=== PATIENT | female | born 1965 | race Caucasian/White ===

== ENCOUNTER 2020-03-21 12:13 | Outpatient (REF) | payer MEDICARE, MEDICAID, SELFPAY ==
--- NOTE | 2020-03-21 12:17 | XR_ITS ---
EXAMINATION: XR KNEE, BILATERAL XR KNEE, LEFT CLINICAL INFORMATION: Left knee pain COMPARISON: 01/12/2020 TECHNIQUE: AP standing view of both knees. Lateral view of the left knee. FINDINGS: Left knee: No fracture or subluxation. Compartmental joint spaces are maintained. No joint effusion. The soft tissues are unremarkable. Right knee: Single frontal view shows no acute abnormality. Small marginal osteophytes at the lateral compartment. IMPRESSION: Unremarkable appearance of the left knee. Small lateral compartment marginal osteophytes of the right knee.
== END 2020-03-21 12:14 | disposition home or self-care (01) ==
LOC: HO.XRAY 12:13
PROVIDERS: PCP Internal Medicine; Referring Provider Internal Medicine; Visit Provider Orthopaedic Surgery
DX: M25.562 Pain in left knee (principal)
CPT/HCPCS: 20610; 73560; 73565; 99204; J1100

== ENCOUNTER 2020-03-29 14:17 | Outpatient (REF) | payer MEDICARE, MEDICAID, SELFPAY ==
[2020-03-29 15:29] LABS: Leukocytes Stool Qualitative NEGATIVE (NEGATIVE)
[2020-04-04 20:56] LABS: Calprotectin, Fecal 281 mcg/g
== END 2020-03-29 14:18 | disposition home or self-care (01) ==
LOC: HO.LNP 14:17
PROVIDERS: Visit Provider Internal Medicine Gastroenterology
DX: R19.7 Diarrhea, unspecified (principal)
CPT/HCPCS: 83993; 87045; 87046; 87077; 87177; 87209; 89055

== ENCOUNTER 2020-04-10 14:29 | Outpatient (REF) | payer MEDICARE, MEDICAID, SELFPAY ==
--- NOTE | 2020-04-10 | US_ITS ---
EXAMINATION: US RETROPERITONEAL LIMITED (RENAL ONLY) CLINICAL INFORMATION: Renal stone. COMPARISON: Renal ultrasound dated 11/09/2019. TECHNIQUE: Real-time imaging of the kidneys. FINDINGS: RIGHT KIDNEY: 12.7 x 6.6 x 5.1 cm (SAG x AP x TRV). The kidney is normal in size, contour, and echogenicity. Renal cortical thickness is normal. No calculi or focal parenchymal lesions. No hydronephrosis. LEFT KIDNEY: 10.3 x 5.2 x 4.4 cm (SAG x AP x TRV). The kidney is normal in size, contour, and echogenicity. Renal cortical thickness is normal. No calculi or focal parenchymal lesions. No hydronephrosis. Left kidney is mildly atrophic. US/US renal BI IMPRESSION: Mildly atrophic left kidney. Right kidney is unremarkable. Previously seen echogenic nonobstructive stone lower pole left kidney is not visualized at this time..
== END 2020-04-10 14:30 | disposition home or self-care (01) ==
LOC: HO.HMGCX 14:29
PROVIDERS: Visit Provider Urology
DX: N20.0 Calculus of kidney (principal)
CPT/HCPCS: 76775

== ENCOUNTER 2020-04-24 10:37 | Outpatient (REF) | payer MEDICARE, MEDICAID, SELFPAY | END 2020-04-24 10:38 | disposition home or self-care (01) | LOC: HO.HMGCLDS 10:37 | PROVIDERS: PCP Internal Medicine; Visit Provider Internal Medicine | DX: Z20.828 Contact with and (suspected) exposure to other viral communicable diseases (principal) | CPT/HCPCS: C9803; U0003 ==

== ENCOUNTER 2020-04-30 09:15 | Day surgery (SDC) | payer MEDICARE, MEDICAID, SELFPAY ==
[2020-04-24 12:52] VITALS: BMI 40.7
--- NOTE | 2020-04-29 10:45 | P.CONAN_ITS ---
Documented by User: Toshia Samaniego 04/29/20 10:46 HPI - Anesthesia Eval Consult details Narrative: 55yo F for Colonoscopy PMFSH Past Medical History Medical History Anxiety Benign essential hypertension Cervical cancer Chronic back pain DDD (degenerative disc disease), lumbosacral Degenerative joint disease of left knee Depression Diabetes mellitus Fatty liver GERD (gastroesophageal reflux disease) High blood pressure History of renal stone Hx of concussion Left knee pain Lumbar degenerative disc disease Morbid obesity with BMI of 40.0-44.9, adult Pure hypercholesterolemia Smoker Tibia fracture Family History Family History Father Alzheimer disease Mouth cancer Mother Cancer Medical history unknown Surgical History Surgical History History of carpal tunnel release History of lumbar surgery History of surgery (~1999) Hx of colonoscopy Hx of lithotripsy Previous back surgery Social History Social History Alcohol intake: never Smoking Status: Current every day smoker Tobacco Type: Cigarette Packs Per Day: 0.25 Cigarettes Per Day: 5.0 Years Smoked: 20 Smoked in Last 30 Days: Yes Patient Interested in Nicotine Replacement: No Patient Given Instructions on How to Stop Smoking: Yes Date Education Initiated: 04/24/20 Use of substances other than those prescribed or required for medical reasons: No Advance Directives: No Advance Directives Information Provided: No Advance Directives on File: No 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al status: unemployed and disabled 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 Allergies Allergy/AdvReac Type Severity Reaction Status Date / Time doxycycline [DOXYCYCLINE] Allergy Severe PALPITATIONS, Verified 04/24/20 12:43 anaphylaxis ibuprofen [IBUPROFEN] Allergy Severe HIVES Verified 04/24/20 12:43 NSAIDS (Non-Steroidal Allergy Severe HIVES Verified 04/24/20 12:43 Anti-Inflamma [NSAIDS (NON-STEROIDAL ANTI-INFLAMMA] cefaclor [From CECLOR] Allergy Intermediate RASH Verified 04/24/20 12:43 acetaminophen [Tylenol] AdvReac Intermediate n/v Verified 04/24/20 12:43 cephalexin [From KEFLEX] AdvReac Intermediate GI UPSET Verified 04/24/20 12:43 codeine [CODEINE] AdvReac Intermediate N/V Verified 04/24/20 12:43 gabapentin [GABAPENTIN] AdvReac Intermediate NAUSEA/VOMI Verified 04/24/20 12:43 TING tolterodine [From DETROL] AdvReac Intermediate PALPITATION Verified 04/24/20 12:43 S Home Medications Medication Instructions Recorded Confirmed Type amlodipine 5 mg tablet 5 mg PO DAILY 03/21/20 04/24/20 History atorvastatin 10 mg tablet 10 mg PO DAILY 03/21/20 04/24/20 History pantoprazole 40 mg tablet,delayed 40 mg PO DAILY 03/21/20 04/24/20 History release meloxicam 15 mg tablet 15 mg PO DAILY 03/27/20 04/24/20 History metformin 500 mg tablet,extended 1,000 mg PO BID tab 03/31/20 04/24/20 History release 24 hr oxycodone-acetaminophen [Percocet] PO Q4-6H PRN 04/30/20 History pregabalin PO BID 04/30/20 History Exam Exam Date and Time: April 29, 2020 1045 Height,Weight and Vital Signs: Height 5 ft 5 in Weight 111.13 kg Assessment and Plan Assessment Anesthesia Assessment: Chart Reviewed Documented by User: Robin Ricks MD 04/30/20 10:58 [facility] Past Medical History Medical History Anxiety Benign essential hypertension Cervical cancer Chronic back pain DDD (degenerative disc disease), lumbosacral Degenerative joint disease of left knee Depression Diabetes mellitus Fatty liver GERD (gastroesophageal reflux disease) High blood pressure History of renal stone Hx of concussion Left knee pain Lumbar degenerative disc disease Morbid obesity with BMI of 40.0-44.9, adult Pure hypercholesterolemia Smoker Tibia fracture Family History Family History Father Alzheimer disease Mouth cancer Mother Cancer Medical history unknown Surgical History Surgical History History of carpal tunnel release History of lumbar surgery History of surgery (~1999) Hx of colonoscopy Hx of lithotripsy Previous back surgery Social History Social History Alcohol intake: never Smoking Status: Current every day smoker Tobacco Type: Cigarette Packs Per Day: 0.25 Cigarettes Per Day: 5.0 Years Smoked: 20 Smoked in Last 30 Days: Yes Patient Interested in Nicotine Replacement: No Patient Given Instructions on How to Stop Smoking: Yes Date Education Initiated: 04/24/20 Use of substances other than those prescribed or required for medical reasons: No Advance Directives: No Advance Directives Information Provided: No Advance Directives on File: No 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al status: unemployed and disabled 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 Allergies Allergy/AdvReac Type Severity Reaction Status Date / Time doxycycline [DOXYCYCLINE] Allergy Severe PALPITATIONS, Verified 04/24/20 12:43 anaphylaxis ibuprofen [IBUPROFEN] Allergy Severe HIVES Verified 04/24/20 12:43 NSAIDS (Non-Steroidal Allergy Severe HIVES Verified 04/24/20 12:43 Anti-Inflamma [NSAIDS (NON-STEROIDAL ANTI-INFLAMMA] cefaclor [From CECLOR] Allergy Intermediate RASH Verified 04/24/20 12:43 acetaminophen [Tylenol] AdvReac Intermediate n/v Verified 04/24/20 12:43 cephalexin [From KEFLEX] AdvReac Intermediate GI UPSET Verified 04/24/20 12:43 codeine [CODEINE] AdvReac Intermediate N/V Verified 04/24/20 12:43 gabapentin [GABAPENTIN] AdvReac Intermediate NAUSEA/VOMI Verified 04/24/20 12:43 TING tolterodine [From DETROL] AdvReac Intermediate PALPITATION Verified 04/24/20 12:43 S Home Medications Medication Instructions Recorded Confirmed Type amlodipine 5 mg tablet 5 mg PO DAILY 03/21/20 04/24/20 History atorvastatin 10 mg tablet 10 mg PO DAILY 03/21/20 04/24/20 History pantoprazole 40 mg tablet,delayed 40 mg PO DAILY 03/21/20 04/24/20 History release meloxicam 15 mg tablet 15 mg PO DAILY 03/27/20 04/24/20 History metformin 500 mg tablet,extended 1,000 mg PO BID tab 03/31/20 04/24/20 History release 24 hr oxycodone-acetaminophen [Percocet] PO Q4-6H PRN 04/30/20 History pregabalin PO BID 04/30/20 History Exam Airway Mallampati Class: II TM Dist: >3cm Neck ROM: Full Partial: Upper Loose/Missing/Broken Teeth: Yes Heart: rrr Lungs: nl Other: ao Assessment and Plan Assessment Anesthesia Assessment: Anesthesia Plan Discussed and Chart Reviewed Final Anesthetic Review NPO: Yes ASA Class: III Final Preanesthetic Review: No Changes in Pt Med Stat, Meds/Allgs Chart Reviewed, Consent Obtained/Reviewed and Anes Risks/Benef Reviewed Patient Risk: High Procedure Risk: Low Anesthetic Plan Anesthetic Plan: MAC: Disposition: Standard PACU
[2020-04-30 09:50] VITALS: BP 113/79; PULSE 97; RESP 16; TEMP 36.5; O2SAT 96
[2020-04-30 09:50] LABS: Glucose, Whole Blood 147 mg/dL (60-115)
[2020-04-30] MEDS: Lactated Ringers 1,000 ML 100 ML IVCONT (09:57)
--- NOTE | 2020-04-30 10:50 | MHC.SHP ---
Pre-Procedural Eval Section A The patient is an INPATIENT: No Changes since office visit: No Cold of Flu in the past 2 weeks, No New Medical Problems, No Changes in Medication and No Patient answered all questions The History & Physical has been completed within 30 days and I have reviewed it.: Yes Section B Chief Complaint: Diarrhea Allergies: Allergies Allergy/AdvReac Type Severity Reaction Status Date / Time doxycycline [DOXYCYCLINE] Allergy Severe PALPITATIONS, Verified 04/24/20 12:43 anaphylaxis ibuprofen [IBUPROFEN] Allergy Severe HIVES Verified 04/24/20 12:43 NSAIDS (Non-Steroidal Allergy Severe HIVES Verified 04/24/20 12:43 Anti-Inflamma [NSAIDS (NON-STEROIDAL ANTI-INFLAMMA] cefaclor [From CECLOR] Allergy Intermediate RASH Verified 04/24/20 12:43 acetaminophen [Tylenol] AdvReac Intermediate n/v Verified 04/24/20 12:43 cephalexin [From KEFLEX] AdvReac Intermediate GI UPSET Verified 04/24/20 12:43 codeine [CODEINE] AdvReac Intermediate N/V Verified 04/24/20 12:43 gabapentin [GABAPENTIN] AdvReac Intermediate NAUSEA/VOMI Verified 04/24/20 12:43 TING tolterodine [From DETROL] AdvReac Intermediate PALPITATION Verified 04/24/20 12:43 S Plan Patient has been examined and remains a candidate for the planned procedure
[2020-04-30 12:06] VITALS: BP 109/78; PULSE 76; RESP 16; TEMP 36.4; O2SAT 94
--- NOTE | 2020-04-30 12:07 | PM.OP ---
Brief Operative Note Date of Service: 04/30/20 Pre-op diagnosis: diarrhea Post-op diagnosis: other Procedure: colon stricture, r/o IBD Surgeon: Christopher Quiroz Anesthesia: MAC Estimated blood loss (mL): 10 Pathology: other (biopsies ti, throughout colon and stricture) Condition: stable Disposition: PACU
[2020-04-30 12:21] VITALS: BP 113/83; PULSE 75; RESP 14; TEMP 36.4; O2SAT 96
--- NOTE | 2020-04-30 12:42 | OP_ITS ---
SURGEON: Christopher Quiroz MD INDICATIONS: Diarrhea and question of underlying inflammatory bowel disease. PREOPERATIVE DIAGNOSIS: POSTOPERATIVE DIAGNOSIS: PROCEDURE PERFORMED: Colonoscopy to the terminal ileum with balloon dilation of stricture and biopsy. ESTIMATED BLOOD LOSS: COMPLICATIONS: ANESTHESIA: ASSISTANTS: SPECIMENS: MEDICATIONS: Monitored anesthesia care. DESCRIPTION OF PROCEDURE: History and physical performed. The risks and benefits of the procedure were explained to the patient. Informed consent was obtained. The patient was placed in the left lateral decubitus position. A digital rectal exam was performed and was found to be normal. The Olympus pediatric video colonoscope was introduced into the rectum and advanced to the cecum. The cecum was identified by transillumination, palpation, and identification of ileocecal valve. Examination was performed and the scope was removed. She tolerated the procedure well and was taken to recovery area in stable condition. FINDINGS: There was a stricture at about 20 cm, which did not permit passage of the colonoscope. The stricture was sequentially dilated with 8 to 12 mm balloon was passed through the scope and inflated for 60 seconds at the recommended pressure sequentially, and the scope was able to be passed. The terminal ileum was evaluated and appeared normal. This was biopsied. The visualized colonic mucosa in the right colon, transverse colon, and descending colon appeared normal. Biopsies were obtained from the mucosa. There was a large amount of liquid stool, which was suctioned. In the sigmoid, there were patchy areas of featureless mucosa without ulceration or erythema. At about 20 cm, the stricture was again inspected. The mucosa appeared normal without signs of malignancy except for the lack of normal vascularity suggestive of possible underlying inflammatory bowel disease. There was edema and erythema around the stricture without ulceration. Biopsies were obtained from the stricture. There was some oozing at the site of the balloon dilation, which was stable at the termination of the procedure. From 0 to 28 cm, the rectum appeared featureless with edema, but without significant erythema. Biopsies were obtained from the rectum. Retroflexed examination was not possible. Hemorrhoids were noted on withdrawal of the colonoscope. IMPRESSION: 1. Colonic stricture. 2. Rule out inflammatory bowel disease. RECOMMENDATIONS: 1. Follow up the biopsy results. 2. Continue balsalazide. MD BARBAAR Chin/BERNARDO / [id number]
--- NOTE | 2020-04-30 13:02 | HO.POSTANES ---
Post Anesthesia Evaluation Post Anesthesia Evaluation Vital Signs: Vital Signs Temp Pulse Resp BP Pulse Ox 04/30/20 12:21 97.6 F 75 14 113/83 96 04/30/20 12:06 97.6 F 76 16 109/78 94 04/30/20 09:50 97.7 F 97 16 113/79 96 Anesthesia: Monitored Mental Status: Awake Pain Control: Satisfactory Nausea/Vomiting: None Hydration: Adequate Anesthesia-Related Issues: No Anes. Related Issues
== END 2020-04-30 13:10 | disposition home or self-care (01) ==
PROVIDERS: PCP Internal Medicine; Visit Provider Internal Medicine Gastroenterology
PROC: 0D7E8ZZ Dilation of Large Intestine, Via Natural or Artificial Opening Endoscopic (ICD-10-PCS; CPT 45380; principal; 2020-04-30 11:00)
DX: R19.7 Diarrhea, unspecified (principal); K56.699 Other intestinal obstruction unspecified as to partial versus complete obstruction; E11.9 Type 2 diabetes mellitus without complications; I10 Essential (primary) hypertension; Z79.84 Long term (current) use of oral hypoglycemic drugs; Z79.899 Other long term (current) drug therapy; F17.210 Nicotine dependence, cigarettes, uncomplicated; Z88.6 Allergy status to analgesic agent; Z88.8 Allergy status to other drugs, medicaments and biological substances; Z88.3 Allergy status to other anti-infective agents
CPT/HCPCS: 45380; 45386; 82947; 88305; C1726

== ENCOUNTER → 2020-05-23 10:07 | Outpatient (BNVA) | payer MEDICARE, MEDICAID, SELFPAY | PROVIDERS: Visit Provider Orthopaedic Surgery | DX: M17.12 Unilateral primary osteoarthritis, left knee (principal) | CPT/HCPCS: Q3014 ==

== ENCOUNTER → 2020-09-05 10:56 | Outpatient (BNVA) | payer MEDICARE, MEDICAID, SELFPAY | PROVIDERS: PCP Internal Medicine; Visit Provider Family Medicine Adult Medicine | DX: Z13.89 Encounter for screening for other disorder (principal) | CPT/HCPCS: 99202 ==

== ENCOUNTER → 2020-09-17 08:56 | Outpatient (BNVA) | payer MEDICARE, MEDICAID, SELFPAY | PROVIDERS: PCP Internal Medicine; Visit Provider Family Medicine Adult Medicine | DX: Z13.89 Encounter for screening for other disorder (principal) | CPT/HCPCS: 99212 ==

== ENCOUNTER 2020-09-17 10:19 | Outpatient (REF) | payer MEDICARE, MEDICAID, SELFPAY ==
[2020-09-17 12:17] LABS: MANUAL DIFF FLAG NO
[2020-09-17 12:25] LABS: Basophils Percent Auto 0.5 % (0-2); Eosinophils Absolute Auto 0.1 X10*3/uL (0.0-0.4); Eosinophils Percent Auto 1.3 % (0-4); Hematocrit 41.2 % (37-47); Hemoglobin 13.1 g/dl (12.0-16.0); Imm Gran Abs Auto 0.02 X10*3/uL (0.00-0.03); Imm Gran Pct Auto 0.2 % (0.0-0.4); Lymphocytes Percent Auto 22.5 % (20-40); Mean Corpuscular HGB Conc 31.8 g/dl (31.0-35.0); Mean Corpuscular Hemoglobin 27.3 pg (27.0-33.0); Mean Corpuscular Volume 85.8 fL (80-98); Monocytes Absolute Auto 0.6 X10*3/uL (0.1-1.2); Monocytes Percent Auto 7.3 % (2-11); Neutrophils Percent Auto 68.2 % (45-73); Platelet Count 200 X10*3/uL (160-400); Red Cell Distribution Width 13.3 % (11.0-16.0); White Blood Count 8.7 X10*3/uL (4.8-10.8)
[2020-09-17 12:37] LABS: Alanine Aminotransferase 18 U/L (0-31); Albumin Level 4.1 g/dL (3.5-5.0); Alkaline Phosphatase 117 U/L (39-117); Anion Gap 13 (12-20); Aspartate Amino Transferase 20 U/L (5-31); Bilirubin Total 0.7 mg/dL (0.0-1.0); Blood Urea Nitrogen 18 mg/dL (9-16); Calcium 9.7 mg/dL (8.4-10.2); Carbon Dioxide 26 mmol/L (22-29); Chloride 107 mmol/L (96-108); Cholesterol 149 mg/dL; Estimated Glomerular Filt Rate > 60; Glucose Fasting 83 mg/dL (60-99); HDL Cholesterol 44 mg/dL; LDL Cholesterol Calculated 71 mg/dl; Potassium 4.3 mmol/L (3.3-5.1); Sodium 142 mmol/L (135-145); Total Protein 7.1 g/dL (6.5-8.0); Triglycerides 173 mg/dL
[2020-09-17 12:52] LABS: Estimated Average Glucose 123 mg/dL; Hemoglobin A1c % 5.9 %
[2020-09-17 13:04] LABS: TSH reflex Free T4 1.19 uIU/mL (0.32-4.0)
== END 2020-09-17 10:20 | disposition home or self-care (01) ==
LOC: HO.10HDL 10:19
PROVIDERS: Visit Provider Internal Medicine
DX: I10 Essential (primary) hypertension (principal); K21.9 Gastro-esophageal reflux disease without esophagitis; E66.01 Morbid (severe) obesity due to excess calories; Z68.41 Body mass index [BMI] 40.0-44.9, adult; E78.00 Pure hypercholesterolemia, unspecified; E11.9 Type 2 diabetes mellitus without complications; F17.200 Nicotine dependence, unspecified, uncomplicated
CPT/HCPCS: 36415; 80053; 80061; 83036; 84443; 85025; 99212

== ENCOUNTER 2020-09-18 12:07 | Outpatient (REF) | payer MEDICARE, MEDICAID, SELFPAY ==
[2020-09-18 13:58] LABS: Glucose Urine UA NEG (NEG); Leukocyte Esterase Urine NEG (NEG); Nitrite Urine NEG (NEG); PH 5.5 (5.0-8.0); Specific Gravity - Urine >= 1.030 (1.005-1.025); Urine Blood 1+ (NEG); Urine Ketones NEG (NEG); Urine Protein NEG (NEG-TRACE)
[2020-09-18 13:59] LABS: Appearance Urine HAZY; Color Urine YELLOW
[2020-09-18 14:13] LABS: Amorphous Sediment Urine 2+ /LPF; Squamous Epithelial Cell Urine TRACE /LPF; WBC Urine 0-2 /HPF (0-4)
[2020-09-18 14:59] LABS: Creatinine Urine 200.59 mg/dL; Microalbum/Creatinine Ratio Ur 12.4 ug/mg cr
== END 2020-09-18 12:08 | disposition home or self-care (01) ==
LOC: HO.10HDLNP 12:07
PROVIDERS: Visit Provider Internal Medicine
DX: E11.9 Type 2 diabetes mellitus without complications (principal)
CPT/HCPCS: 81001; 82043

== ENCOUNTER → 2020-09-24 08:29 | Outpatient (BNVA) | payer MEDICARE, MEDICAID, SELFPAY | PROVIDERS: PCP Internal Medicine; Visit Provider Family Medicine Adult Medicine | DX: M96.1 Postlaminectomy syndrome, not elsewhere classified (principal); M25.561 Pain in right knee; M25.562 Pain in left knee | CPT/HCPCS: 99212 ==

== ENCOUNTER → 2020-10-01 09:55 | Outpatient (BNVA) | payer MEDICARE, MEDICAID, SELFPAY | PROVIDERS: PCP Internal Medicine; Visit Provider Family Medicine Adult Medicine | DX: M25.561 Pain in right knee (principal); M25.562 Pain in left knee; M96.1 Postlaminectomy syndrome, not elsewhere classified | CPT/HCPCS: 99212 ==

== ENCOUNTER → 2020-10-22 10:27 | Outpatient (BNVA) | payer MEDICARE, MEDICAID, SELFPAY | PROVIDERS: PCP Internal Medicine; Visit Provider Nurse Practitioner Family | DX: M17.0 Bilateral primary osteoarthritis of knee (principal); M25.561 Pain in right knee; M25.562 Pain in left knee; G89.29 Other chronic pain | CPT/HCPCS: 99212 ==

== ENCOUNTER → 2020-10-29 09:48 | Outpatient (BNVA) | payer MEDICARE, MEDICAID, SELFPAY | PROVIDERS: PCP Internal Medicine; Visit Provider Family Medicine Adult Medicine | DX: M96.1 Postlaminectomy syndrome, not elsewhere classified (principal); M25.561 Pain in right knee; M25.562 Pain in left knee; G89.29 Other chronic pain | CPT/HCPCS: 99212 ==

== ENCOUNTER → 2020-11-28 09:18 | Outpatient (BNVA) | payer MEDICARE, MEDICAID, SELFPAY | PROVIDERS: PCP Internal Medicine; Visit Provider Family Medicine Adult Medicine | DX: M96.1 Postlaminectomy syndrome, not elsewhere classified (principal); M25.561 Pain in right knee; M25.562 Pain in left knee; G89.29 Other chronic pain; G56.02 Carpal tunnel syndrome, left upper limb | CPT/HCPCS: 99212 ==

== ENCOUNTER 2020-12-25 14:11 | Inpatient (IN) | payer MEDICARE, MEDICAID, SELFPAY ==
[2020-12-25] VITALS (9 sets, daily range): BP systolic 71–126; BP diastolic 25–62; PULSE 86–99; RESP 16–27; TEMP 37.9–39.2; O2SAT 91–100; BMI 27.4
--- NOTE | ~2020-12-25 | XR_ITS ---
EXAMINATION: XR CHEST CLINICAL INFORMATION: Shortness of breath COMPARISON: 12/25/2020 TECHNIQUE: Frontal view of the chest was obtained. FINDINGS: Lung volumes are symmetric. No focal consolidation is seen. No evidence of pneumothorax, pleural effusion, or pulmonary edema. The cardiomediastinal contour is unremarkable. No acute osseous findings are seen. XR/XR chest 1V IMPRESSION: No acute cardiopulmonary findings.
--- NOTE | ~2020-12-25 | XR_ITS ---
EXAMINATION: XR CHEST CLINICAL INFORMATION: Fever and hypotension COMPARISON: None TECHNIQUE: Frontal view of the chest was obtained. FINDINGS: No significant abnormality is noted involving the heart, lungs, mediastinum, bony thorax or soft tissues. XR/XR chest 1V IMPRESSION: Unremarkable examination.
--- NOTE | ~2020-12-25 | CT_ITS ---
EXAMINATION: CT abdomen pelvis wo con CLINICAL INFORMATION: Reason for Exam hematuria with right flank pain COMPARISON: Prior CT 2020 TECHNIQUE: Multidetector volumetric imaging was performed from the superior aspect of the liver through the pubic symphysis a noncontrasted study. Sagittal and coronal reformatted images were obtained on the technologist's workstation. This CT examination was performed using dose optimization techniques as appropriate, variously including the following: *Automated exposure control *Adjustment of mA and/or kV according to patient size (this includes techniques or standardized protocols for targeted exams where dose is matched to indication/reason for exam; i.e. extremities or head) *Use of iterative reconstruction technique DLP: 1118 mGy-cm FINDINGS: LOWER THORAX: Included lung bases are clear. HEPATOBILIARY: Evaluation of the liver is limited on this noncontrasted study. GALLBLADDER: Redemonstration of multiple gallstones. SPLEEN: Spleen is enlarged measuring 14.1 x 8.8 cm. PANCREAS: No focal mass or ductal dilatation. STOMACH AND GASTROINTESTINAL TRACT: Stomach is grossly unremarkable. Small bowel is unremarkable. There is diffuse marked thickening of the wall of the colon which involve the left side of the transverse colon and the entire left descending colon, along with mild pericolic fat stranding, nonspecific radiologic finding likely sequela of infection, inflammatory and/or ischemic process versus less commonly neoplastic. There is adjacent small amount of free fluid along the left gutter. There is no CT evidence of pneumatosis. Evaluation is limited on this noncontrasted study. ADRENALS: No adrenal nodules. KIDNEYS/URETERS: There is a 3 mm small nonobstructing stone in the left kidney. Mild fullness of right renal pelvis without marked hydronephrosis. URINARY BLADDER: Partially decompressed. PELVIC VISCERA: There is circumferential wall thickening of the rectum and the rectoanal verge. Could be proctitis. Evaluation is limited due to lack of contrast. Cannot rule out underlying inflammatory, infection or neoplastic process. PERITONEUM: No free air or fluid. LYMPH NODES: No lymphadenopathy. VASCULAR:There is only very mild vascular calcifications. BONES, ABDOMINAL WALL AND SOFT TISSUES: Postsurgical changes posterior fusion of lower lumbar spine. Hardware are in place properly positioned. CT/CT abdomen pelvis wo con IMPRESSION: 1. Quite abnormal exam, there is diffuse marked thickening of the wall of the colon involving the left side of the transverse colon , splenic flecture and the entire descending colon along with mild pericolic fat stranding and fluid along the left gutter, without evidence of significant underlying diverticular disease, differential would include inflammatory, IBD, infection colitis, versus ischemic colitis. Neoplasm felt to be less common. 2. There is also fullness of the distal rectal rectoanal area, cannot rule out underlying process. Clinical correlation and follow-up recommended. 3. Other noncritical findings include postsurgical changes posterior fusion lumbar spine, nonobstructing left kidney stone, splenomegaly. This critical result was discussed with Dr. Irving, osteomyelitis can't rule out with by telephone at 12/25/2020 8:39 PM and it was ascertained that the content and urgency of the report was understood at the time of direct communication.
--- NOTE | 2020-12-25 17:01 | ED_ITS ---
HPI - General Adult General Chief complaint: Back Pain/Injury Stated complaint: back pain, Time Seen by Provider: 12/25/20 17:01 Source: patient Mode of arrival: ambulatory Limitations: no limitations History of Present Illness HPI narrative: patient with chills, n/v/d. patient states she has been having hematuria. Sent in from [facility] for UTI. Onset (ago): day(s) Location: back and abdomen Radiation: non-radiation Severity: moderate Quality: aching Pain Consistency: intermittent Related Data Previous Rx's Medication Instructions Recorded amlodipine 5 mg tablet 5 mg PO DAILY 30 Days #30 tab 06/10/20 metformin 500 mg tablet,extended 1,000 mg PO BID 30 Days #120 tab 06/12/20 release 24 hr pregabalin 300 mg capsule 300 mg PO BID 30 Days #60 cap 06/12/20 nystatin 100,000 unit/gram topical 1 appl TOPICAL TID 10 Days #30 g 07/31/20 powder naloxone 4 mg/actuation nasal spray 4 mg INTRANASAL Q2M PRN 1 Days #2 09/17/20 ea pantoprazole 40 mg tablet,delayed 40 mg PO DAILY #90 cap 09/29/20 release atorvastatin 10 mg tablet 10 mg PO DAILY 90 Days #90 tab 11/28/20 clonazepam 2 mg tablet 2 mg PO TID PRN 30 Days #90 tab 11/28/20 lisinopril 40 mg tablet 40 mg PO DAILY 90 Days #90 tab 11/29/20 meloxicam 15 mg tablet 15 mg PO DAILY PRN 90 Days #90 tab 11/29/20 oxycodone-acetaminophen 5 mg-325 1 tab PO Q8H PRN 30 Days #90 tab 12/25/20 mg tablet Allergies Allergy/AdvReac Type Severity Reaction Status Date / Time doxycycline [DOXYCYCLINE] Allergy Severe PALPITATIONS, Verified 12/25/20 14:56 anaphylaxis ibuprofen [IBUPROFEN] Allergy Severe HIVES Verified 12/25/20 14:56 NSAIDS (Non-Steroidal Allergy Severe HIVES Verified 12/25/20 14:56 Anti-Inflamma [NSAIDS (NON-STEROIDAL ANTI-INFLAMMA] cefaclor [From CECLOR] Allergy Intermediate RASH Verified 12/25/20 14:56 acetaminophen [Tylenol] AdvReac Intermediate n/v Verified 12/25/20 14:56 cephalexin [From KEFLEX] AdvReac Intermediate GI UPSET Verified 12/25/20 14:56 codeine [CODEINE] AdvReac Intermediate N/V Verified 12/25/20 14:56 gabapentin [GABAPENTIN] AdvReac Intermediate NAUSEA/VOMI Verified 12/25/20 14:56 TING tolterodine [From DETROL] AdvReac Intermediate PALPITATION Verified 12/25/20 14:56 S Review of Systems Constitutional: Constitutional: Reports no additional constitutional complaints Eyes: Eyes: Reports no additional eye complaints ENT: Denies dizziness Cardiovascular: Cardiovascular: Reports no additional cardiovascular complaints Respiratory: Respiratory: Reports as per HPI Gastrointestinal: Gastrointestinal: Reports no additional gastrointestinal complaints Genitourinary: Genitourinary: Reports no additional female genitourinary complaints Musculoskeletal: Musculoskeletal: Reports no additional musculoskeletal complaints Integumentary/Breasts: Skin/Breast: Denies rash Neurologic: Reports system reviewed and no additional complaints, except as documented, Denies dizziness and Denies Sensory deficit (Neuro) Psychiatric: Psychiatric: Denies anxiety PMFSH Past Medical History Medical History Anxiety Benign essential hypertension Bilateral knee pain Carpal tunnel syndrome of left wrist Cervical cancer DDD (degenerative disc disease), lumbosacral Degenerative joint disease of left knee Depression Diabetes mellitus Failed back syndrome, lumbar Fatty liver GERD without esophagitis History of renal stone Hx of concussion Knee pain, bilateral Left wrist pain Lumbar degenerative disc disease Morbid obesity with BMI of 40.0-44.9, adult Pure hypercholesterolemia Smoker Tibia fracture Surgical History History of carpal tunnel release History of lumbar surgery History of surgery (~1999) Hx of colonoscopy Hx of lithotripsy Previous back surgery Family History Family History Father Alzheimer disease Mouth cancer Mother Cancer Medical history unknown Social History Social History Household Members Other:: single lives with 2 severely handicapped daughters Alcohol intake: never Patient Tobacco Use Status: Current everyday Tobacco user Cigarettes Per Day: 10 Years Smoked: 20 Advance Directives: No Advance Directives Information Provided: No 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al status: unemployed and disabled 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 Physical Exam Vital Signs: Vital Signs: Last Vital Signs Temp 102.5 F H 12/25/20 20:56 Pulse 94 12/25/20 20:56 Resp 25 H 12/25/20 20:56 BP 108/43 L 12/25/20 20:56 Pulse Ox 91 L 12/25/20 20:56 Body Mass Index 27.4 Const: Other: anxious Nutritional Appearance: obese Orientation/consciousness: oriented to person and patient oriented x3 Limitations: no limitations HENMT: Head: Yes normal to inspection Ears: external ears normal General nose exam: Normal external nose present Mouth: Normal oral and palatal mucosa present and oropharynx normal Throat: Yes posterior oropharynx normal Eyes: General: appearance normal, both eyes and all related structures Neck: Other: supple Neck: Yes normal visual inspection Chest: Chest palpation & inspection: normal inspection of the chest Resp: Auscultation: clear to auscultation bilaterally Cardio: Jugular venous distension: no JVD Rate: regular rate Rhythm: regular rhythm Heart sounds: S1 normal heart sound present and S2 normal heart sound present GI: Inspection: Yes normal to inspection Palpation (GI): Soft to palpation, nontender and No hepatosplenomegaly present Auscultation: normal bowel sounds Back/Spine/Pelvis: Other: Right CVAT Skin: General skin exam: no rashes or lesions noted Neuro: General: oriented to person and patient oriented x3 Cranial nerves: Yes CN's II-XII intact bilaterally Motor exam (neuro): 5/5 motor strength present throughout Sensory Exam: No Sensory deficit (Neuro) Extrem: General: Yes normal to inspection Psych: Appearance: grossly normal Course Reevaluation(s) Reevaluation #1: Called for low blood pressures in the 50's. Patient awake and alert, not tachycardic. Manual BP 92/62. Repeat BP 112/60. Will continue current care at this time Time: 18:13 Reevaluation #2: CT shows significant colitis, patient states yesterday she had diarrhea Time: 20:42 Reevaluation #3: patient with severe infection but not sepsis will admit patient Time: 21:21 Medical Decision Making Lab Data Result diagrams: 12/25/20 20:11 12/25/20 20:11 Labs: Lab Results 12/25/20 12/25/20 12/25/20 Range/Units 19:32 20:10 20:11 WBC 18.4 H (4.8-10.8) X10*3/uL RBC 4.19 L (4.20-5.50) X10*6/uL Hgb 11.6 L (12.0-16.0) g/dl Hct 35.8 L (37-47) % MCV 85.4 (80-98) fL MCH 27.7 (27.0-33.0) pg MCHC 32.4 (31.0-35.0) g/dl RDW 13.6 (11.0-16.0) % Plt Count 175 (160-400) X10*3/uL MPV 10.5 (9.4-12.3) fL Immature Gran % (Auto) 0.4 (0.0-0.4) % Neut % (Auto) 81.0 H (45-73) % Lymph % (Auto) 8.1 L (20-40) % [place] % (Auto) 10.2 (2-11) % Eos % (Auto) 0.1 (0-4) % Baso % (Auto) 0.2 (0-2) % Lymph # (Auto) 1.5 (1.2-4.9) X10*3/uL [place] # (Auto) 1.9 H (0.1-1.2) X10*3/uL Eos # (Auto) 0.0 (0.0-0.4) X10*3/uL Baso # (Auto) 0.0 (0.0-0.2) X10*3/uL Abs Immat Gran (auto) 0.07 H (0.00-0.03) X10*3/uL Absolute Neuts (auto) 14.9 H (2.0-8.3) X10*3/uL Absolute Nucleated RBC 0.000 (0.0-0.012) X10*3/uL Nucleated RBC % (auto) 0.0 (0.0-0.2) /100WBC Smear Tech's Comments VERIFIED PT (9.9-13.0) SEC INR (0.9-1.1) Sodium (135-145) mmol/L Potassium (3.3-5.1) mmol/L Chloride (96-108) mmol/L Carbon Dioxide (22-29) mmol/L Anion Gap (12-20) BUN (9-16) mg/dL Creatinine (0.5-1.4) mg/dL Estim Creat Clear Calc Estimated GFR Random Glucose (60-115) mg/dL Lactic Acid 1.6 (0.5-2.0) mmol/L Calcium (8.4-10.2) mg/dL Total Bilirubin (0.0-1.0) mg/dL Urine Color YELLOW Urine Appearance CLEAR Urine pH 5.5 (5.0-8.0) Ur Specific [place] <= 1.005 (1.005-1.025) Urine Protein NEG (NEG-TRACE) MG/DL Urine Glucose (UA) NEG (NEG) MG/DL Urine Ketones NEG (NEG) MG/DL Urine Blood 1+ H (NEG) Urine Nitrite NEG (NEG) Ur Leukocyte Esterase TRACE H (NEG) Urine RBC 1-4 (0) /HPF Urine WBC 5-9 H (0-4) /HPF Ur Squamous Epith Cells TRACE /LPF Ur Renal Epithelial Cell TRACE /LPF Urine Bacteria TRACE /LPF 12/25/20 12/25/20 12/25/20 Range/Units 20:11 20:11 20:11 WBC (4.8-10.8) X10*3/uL RBC (4.20-5.50) X10*6/uL Hgb (12.0-16.0) g/dl Hct (37-47) % MCV (80-98) fL MCH (27.0-33.0) pg MCHC (31.0-35.0) g/dl RDW (11.0-16.0) % Plt Count (160-400) X10*3/uL MPV (9.4-12.3) fL Immature Gran % (Auto) (0.0-0.4) % Neut % (Auto) (45-73) % Lymph % (Auto) (20-40) % [place] % (Auto) (2-11) % Eos % (Auto) (0-4) % Baso % (Auto) (0-2) % Lymph # (Auto) (1.2-4.9) X10*3/uL [place] # (Auto) (0.1-1.2) X10*3/uL Eos # (Auto) (0.0-0.4) X10*3/uL Baso # (Auto) (0.0-0.2) X10*3/uL Abs Immat Gran (auto) (0.00-0.03) X10*3/uL Absolute Neuts (auto) (2.0-8.3) X10*3/uL Absolute Nucleated RBC (0.0-0.012) X10*3/uL Nucleated RBC % (auto) (0.0-0.2) /100WBC Smear Tech's Comments PT 13.8 H (9.9-13.0) SEC INR 1.2 H (0.9-1.1) Sodium 137 (135-145) mmol/L Potassium 4.0 (3.3-5.1) mmol/L Chloride 103 (96-108) mmol/L Carbon Dioxide 24 (22-29) mmol/L Anion Gap 14 (12-20) BUN 18 H (9-16) mg/dL Creatinine 0.89 (0.5-1.4) mg/dL Estim Creat Clear Calc 75.7 Estimated GFR > 60 Random Glucose 147 H (60-115) mg/dL Lactic Acid (0.5-2.0) mmol/L Calcium 8.8 D (8.4-10.2) mg/dL Total Bilirubin 1.8 H (0.0-1.0) mg/dL Urine Color Urine Appearance Urine pH (5.0-8.0) Ur Specific [place] (1.005-1.025) Urine Protein (NEG-TRACE) MG/DL Urine Glucose (UA) (NEG) MG/DL Urine Ketones (NEG) MG/DL Urine Blood (NEG) Urine Nitrite (NEG) Ur Leukocyte Esterase (NEG) Urine RBC (0) /HPF Urine WBC (0-4) /HPF Ur Squamous Epith Cells /LPF Ur Renal Epithelial Cell /LPF Urine Bacteria /LPF Imaging Data Chest x-ray: Radiologist's impression: IMPRESSION: Unremarkable examination CT scan - abdomen: Radiologist's impression: very ill appearing left colon with inflammation and edema, no abscess no pneumatosis Critical Care Time Critical Care Time Attestation: I spent 40 minutes of critical care, with interventions, assessments, speaking to patient, consultants, and family. Discharge Plan Discharge Clinical Impression: Colitis Patient Disposition: Admitted As Inpatient
[2020-12-25] MEDS: 0.9 % Sodium Chloride 2,313.33 ML 2313.33 ML IVCONT (17:33)
[2020-12-25 19:40] LABS: Glucose Urine UA NEG (NEG); Leukocyte Esterase Urine TRACE (NEG); Nitrite Urine NEG (NEG); PH 5.5 (5.0-8.0); Specific Gravity - Urine <= 1.005 (1.005-1.025); UACC Culture Trigger YES; Urine Blood 1+ (NEG); Urine Ketones NEG (NEG); Urine Protein NEG (NEG-TRACE)
[2020-12-25 19:41] LABS: Appearance Urine CLEAR; Color Urine YELLOW
[2020-12-25 19:49] LABS: Bacteria Urine TRACE /LPF; Renal Epithelial Cells Urine TRACE /LPF; Squamous Epithelial Cell Urine TRACE /LPF
[2020-12-25 20:18] LABS: Basophils Percent Auto 0.2 % (0-2); Eosinophils Percent Auto 0.1 % (0-4); Hematocrit 35.8 % (37-47); Hemoglobin 11.6 g/dl (12.0-16.0); Imm Gran Abs Auto 0.07 X10*3/uL (0.00-0.03); Imm Gran Pct Auto 0.4 % (0.0-0.4); Lymphocytes Absolute Auto 1.5 X10*3/uL (1.2-4.9); Lymphocytes Percent Auto 8.1 % (20-40); MANUAL DIFF FLAG SCAN; Mean Corpuscular HGB Conc 32.4 g/dl (31.0-35.0); Mean Corpuscular Hemoglobin 27.7 pg (27.0-33.0); Mean Corpuscular Volume 85.4 fL (80-98); Mean Platelet Volume 10.5 fL (9.4-12.3); Monocytes Absolute Auto 1.9 X10*3/uL (0.1-1.2); Monocytes Percent Auto 10.2 % (2-11); Neutrophils Absolute Auto 14.9 X10*3/uL (2.0-8.3); Platelet Count 175 X10*3/uL (160-400); Red Blood Count 4.19 X10*6/uL (4.20-5.50); Red Cell Distribution Width 13.6 % (11.0-16.0); SCAN SMEAR FLAG 1; White Blood Count 18.4 X10*3/uL (4.8-10.8)
[2020-12-25 20:24] LABS: INTERNATIONAL NORM RATIO 1.2 (0.9-1.1); Prothrombin Time 13.8 SEC (9.9-13.0)
[2020-12-25 20:38] LABS: SLIDE REVIEW VERIFIED
[2020-12-25 20:39] LABS: Bilirubin Total 1.8 mg/dL (0.0-1.0)
[2020-12-25 20:39] LABS: Lactic Acid 1.6 mmol/L (0.5-2.0)
[2020-12-25 20:43] LABS: Anion Gap 14 (12-20); Blood Urea Nitrogen 18 mg/dL (9-16); Calcium 8.8 mg/dL (8.4-10.2); Carbon Dioxide 24 mmol/L (22-29); Chloride 103 mmol/L (96-108); Creatinine Clr Calc Pharmacy 75.7; Estimated Glomerular Filt Rate > 60; Glucose Random 147 mg/dL (60-115); Sodium 137 mmol/L (135-145)
[2020-12-25] MEDS: Piperacillin Sodium/Tazobactam 4.5 GM in 0.9 % Sodium Chloride 100 ML IV (21:03)
[2020-12-25] MEDS: Acetaminophen 325 MG TABLET 975 MG PO (21:23)
[2020-12-25] MEDS: metroNIDAZOLE/NS 500 MG/100 ML PIGGYBACK 100 MG IV (21:25)
--- NOTE | 2020-12-25 21:42 | P.HPHOSP_ITS ---
History of Present Illness Date of Service: 12/25/20 Chief Complaint: Left sided Abd pain 55-year-old female with a past medical history of hypertension, hyperlipidemia, diabetes, obesity, degenerative joint disease, anxiety, depression, GERD history of cervical cancer, chronic back pain history of tobacco use, presented to the hospital today with a chief complaint of nausea vomiting and left-sided abdominal pain; patient reported that she had few episodes of diarrhea yesterday; today she did not have any episode of diarrhea. Patient reported that she has been having frequency urgency dysuria for the past few days; noted dark urine vs blood. Denies any chest pain palpitations lightheadedness or dizziness. Denies any fever chills cough. Denies any numbness or tingling. Review of all other systems is negative except mentioned above ER course: Per ER team patient noted to have lactate of 1.6. Compared to 102 F; blood cultures were sent. Given IV antibiotics. CT abdomen showed marked thickening of the left side of the colon including transverse colon, descending colon, splenic flexure and mild pericolic fat stranding with fluid on the left gutter; ER team mentioned that patient's lactate was 1.6 and patient's abdomen was not severely tender; less concern for ischemic colitis. Reported that patient denied any signs of bleeding. Hemoglobin stable. Mentioned that most likely infectious colitis given patient had diarrhea. Admitted for further management. ER team also mentioned that patient had an episode of low blood pressure with systolic 71; mentioned that likely wrong reading as the patient was alert and awake without any symptoms, no tachycardia; at the same time the manual systolic blood pressure was 91. Patient received IV fluids. [facility] Medical History (Updated 01/02/21 @ 10:09 by Matt Camara MD) Anxiety Benign essential hypertension Bilateral knee pain Carpal tunnel syndrome of left wrist Cervical cancer DDD (degenerative disc disease), lumbosacral Degenerative joint disease of left knee Depression Diabetes mellitus Failed back syndrome, lumbar Fatty liver GERD without esophagitis History of renal stone Hx of concussion Knee pain, bilateral Left wrist pain Lumbar degenerative disc disease Morbid obesity with BMI of 40.0-44.9, adult Pure hypercholesterolemia Smoker Tibia fracture Weight loss Family History (Updated 01/02/21 @ 09:25 by MENA Schulte) Father Alzheimer disease Mouth cancer Mother Cancer Medical history unknown Sister No problems noted. Brother No problems noted. Maternal Grandfather HTN (hypertension) Maternal Grandmother HTN (hypertension) Other Mental health problem Surgical History History of carpal tunnel release History of lumbar surgery History of surgery (~1999) Hx of colonoscopy Hx of lithotripsy Previous back surgery Social History Household Members: Children Household Members Other:: 2 daughters Housing: Apartment Do you presently have visiting nurse or other home services: Yes Alcohol intake: never Patient Tobacco Use Status: Current everyday Tobacco user Tobacco use type: Cigarette Cigarettes Per Day: 10 Years Smoked: 20 service: No 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al status: unemployed and disabled 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 Meds Allergies Allergy/AdvReac Type Severity Reaction Status Date / Time doxycycline [DOXYCYCLINE] Allergy Severe PALPITATIONS, Verified 01/02/21 09:26 anaphylaxis ibuprofen [IBUPROFEN] Allergy Severe HIVES Verified 01/02/21 09:26 NSAIDS (Non-Steroidal Allergy Severe HIVES Verified 01/02/21 09:26 Anti-Inflamma [NSAIDS (NON-STEROIDAL ANTI-INFLAMMA] cefaclor [From CECLOR] Allergy Intermediate RASH Verified 01/02/21 09:26 acetaminophen [Tylenol] AdvReac Intermediate n/v Verified 01/02/21 09:26 cephalexin [From KEFLEX] AdvReac Intermediate GI UPSET Verified 01/02/21 09:26 codeine [CODEINE] AdvReac Intermediate N/V Verified 01/02/21 09:26 gabapentin [GABAPENTIN] AdvReac Intermediate NAUSEA/VOMI Verified 01/02/21 09:26 TING tolterodine [From DETROL] AdvReac Intermediate PALPITATION Verified 01/02/21 09:26 S Active Medications: Current Medications Generic Name Dose Route Start Last Admin Trade Name Freq PRN Reason Stop Dose Admin Enoxaparin Sodium 40 mg 12/25/20 23:00 Enoxaparin Sodium 40 Mg/0.4 Ml Syringe SUBCUT Q24H CINDY Famotidine 20 mg 12/26/20 09:00 Famotidine/Pf 20 Mg/2 Ml Vial IVPUSH BID CINDY Hydromorphone HCl 0.5 mg 12/25/20 21:33 Hydromorphone Hcl 0.5 Mg/0.5 Ml Syringe IVPUSH Q4H PRN Breakthrough Pain Sodium Chloride 1,000 mls @ 100 mls/hr 12/25/20 21:30 Ns IVCONT .Q10H CINDY Piperacillin Sod/Tazobactam 50 mls @ 100 mls/hr 12/26/20 03:00 Sod 3.375 gm/ Sodium Chloride IV Q6H COUNT INCLUDES THE [facility] Melatonin 6 mg 12/25/20 21:28 Melatonin 3 Mg Tablet PO BEDTIME PRN Insomnia Ondansetron HCl 4 mg 12/25/20 21:28 Ondansetron Hcl 4 Mg/2 Ml Vial IVPUSH Q8H PRN Nausea and Vomiting Pharmacy Consult 1 each 12/25/20 21:24 Consult Rx Perform Med Rec MISCELLANE ONCE PRN Consult order Sodium Chloride 3 ml 12/26/20 00:00 0.9 % Sodium Chloride Flush 3 Ml Syringe IVFLUSH QSHIFT COUNT INCLUDES THE [facility] Home Medications Medication Instructions Recorded Confirmed Last Taken Type buprenorphine 8 mg-naloxone 2 mg 1 strip SUBLINGUAL Q12H 12/25/20 12/30/20 Unknown History sublingual film carisoprodol 350 mg tablet 350 mg PO TID PRN 12/25/20 12/30/20 Unknown History Physical Exam Vital Signs and Narrative: Vital Signs: Last Vital Signs Temp 101.3 F H 12/25/20 21:31 Pulse 90 12/25/20 21:31 Resp 26 H 12/25/20 21:31 BP 114/52 L 12/25/20 21:31 Pulse Ox 94 12/25/20 21:31 Body Mass Index 27.4 Gen: Appears be in no acute distress HEENT: NCAT, Moist mucosa. Pulmonary: Vesicular breath sounds, fair air entry CVS: Normal S1-S2 Abdomen: BS+, Soft, tender in the left upper quadrant; no guarding or rigidity Extremities: Warm well perfused; noted good peripheral pulses and good capillary refill. Neuro: Alert and awake. Results Labs CBC and Chem 7: 12/28/20 09:11 12/26/20 09:30 Labs: Laboratory Results - last 24 hr 12/25/20 12/25/20 12/25/20 19:32 20:10 20:11 MCV 85.4 MCH 27.7 MCHC 32.4 RDW 13.6 Plt Count 175 MPV 10.5 Immature Gran % (Auto) 0.4 Neut % (Auto) 81.0 H Lymph % (Auto) 8.1 L [place] % (Auto) 10.2 Eos % (Auto) 0.1 Baso % (Auto) 0.2 Lymph # (Auto) 1.5 [place] # (Auto) 1.9 H Eos # (Auto) 0.0 Baso # (Auto) 0.0 Abs Immat Gran (auto) 0.07 H Absolute Neuts (auto) 14.9 H Absolute Nucleated RBC 0.000 Nucleated RBC % (auto) 0.0 Smear Tech's Comments VERIFIED PT INR Anion Gap Estim Creat Clear Calc Estimated GFR Random Glucose Lactic Acid 1.6 Calcium Total Bilirubin Urine Color YELLOW Urine Appearance CLEAR Urine pH 5.5 Ur Specific [place] <= 1.005 Urine Protein NEG Urine Glucose (UA) NEG Urine Ketones NEG Urine Blood 1+ H Urine Nitrite NEG Ur Leukocyte Esterase TRACE H Urine RBC 1-4 Urine WBC 5-9 H Ur Squamous Epith Cells TRACE Ur Renal Epithelial Cell TRACE Urine Bacteria TRACE 12/25/20 12/25/20 12/25/20 20:11 20:11 20:11 MCV MCH MCHC RDW Plt Count MPV Immature Gran % (Auto) Neut % (Auto) Lymph % (Auto) [place] % (Auto) Eos % (Auto) Baso % (Auto) Lymph # (Auto) [place] # (Auto) Eos # (Auto) Baso # (Auto) Abs Immat Gran (auto) Absolute Neuts (auto) Absolute Nucleated RBC Nucleated RBC % (auto) Smear Tech's Comments PT 13.8 H INR 1.2 H Anion Gap 14 Estim Creat Clear Calc 75.7 Estimated GFR > 60 Random Glucose 147 H Lactic Acid Calcium 8.8 D Total Bilirubin 1.8 H Urine Color Urine Appearance Urine pH Ur Specific [place] Urine Protein Urine Glucose (UA) Urine Ketones Urine Blood Urine Nitrite Ur Leukocyte Esterase Urine RBC Urine WBC Ur Squamous Epith Cells Ur Renal Epithelial Cell Urine Bacteria Imaging Radiologist's Impressions: Impressions Chest X-Ray 12/25/20 17:06 IMPRESSION: Unremarkable examination. Abdomen/Pelvis CT 12/25/20 19:50 IMPRESSION: 1. Quite abnormal exam, there is diffuse marked thickening of the wall of the colon involving the left side of the transverse colon , splenic flecture and the entire descending colon along with mild pericolic fat stranding and fluid along the left gutter, without evidence of significant underlying diverticular disease, differential would include inflammatory, IBD, infection colitis, versus ischemic colitis. Neoplasm felt to be less common. 2. There is also fullness of the distal rectal rectoanal area, cannot rule out underlying process. Clinical correlation and follow-up recommended. 3. Other noncritical findings include postsurgical changes posterior fusion lumbar spine, nonobstructing left kidney stone, splenomegaly. This critical result was discussed with Dr. Irving, osteomyelitis can't rule out with by telephone at 12/25/2020 8:39 PM and it was ascertained that the content and urgency of the report was understood at the time of direct communication. Assessment and Plan (1) Colitis: Status: Acute 55-year-old female with a past medical history of hypertension, hyperlipidemia, diabetes, opiate dependence on Suboxone, history of cervical cancer, GERD, tobacco use, obesity presented to the hospital with a chief complaint of nausea vomiting diarrhea and left-sided abdominal pain as well as urinary symptoms. Noted to have severe colitis/UTI. Admitted for further management. Severe colitis: Will keep the patient on IV Zosyn. NPO. IV fluids. Sup portive care. Based on the CT scan differential included infectious colitis versus inflammatory bowel disease versus ischemic colitis. Patient's lactate was within the normal limits. Will consult General surgery for further recommendations. ? Question hematuria; urinalysis negative. UTI: Patient on antibiotics as mentioned Incidental rectal lesion-noted on the CT Scan: Will consult Gastroenterology for further recommendations. Stool occult ordered Hypertension: Patient's blood pressure is on the soft side with systolic in low 100s. Patient denies any lightheadedness dizziness. Will hold home antihypertensive. Continue IV fluids. Diabetes: Hold home metformin. Insulin sliding scale History of opiate dependence: Patient on Suboxone. Addiction Medicine consult. DVT prophylaxis: Lovenox Code status: Full code Quality Stroke Does the patient have a stroke diagnosis?: No VTE Prior VTE?: No VTE Risk Level:: Medical - moderate - high VTE Device Contraindication: N/A - Device Ordered VTE Drug Contraindication: N/A - Med Ordered
--- NOTE | 2020-12-25 21:43 | PHA.MEDREC ---
Pharmacy Consult ? Medication Reconciliation Pharmacy has completed the medication reconciliatin using the pharmacy claim history and the list from urgent care due to PT's somnolence.
[2020-12-25] MEDS: 0.9 % Sodium Chloride 1,000 ML 100 ML IVCONT (21:57)
[2020-12-25] MEDS: 0.9 % Sodium Chloride 2,313.33 ML 2313.33 ML IV (22:15)
[2020-12-25] MEDS: Enoxaparin Sodium 40 MG/0.4 ML SYRINGE SUBCUT (23:09)
[2020-12-25 23:18] LABS: MANUAL DIFF FLAG NO
[2020-12-25 23:24] LABS: Basophils Percent Auto 0.2 % (0-2); Eosinophils Percent Auto 0.1 % (0-4); Hematocrit 31.1 % (37-47); Hemoglobin 10.5 g/dl (12.0-16.0); Imm Gran Abs Auto 0.08 X10*3/uL (0.00-0.03); Imm Gran Pct Auto 0.5 % (0.0-0.4); Lymphocytes Absolute Auto 1.6 X10*3/uL (1.2-4.9); Lymphocytes Percent Auto 10.2 % (20-40); Mean Corpuscular HGB Conc 33.8 g/dl (31.0-35.0); Mean Corpuscular Hemoglobin 28.6 pg (27.0-33.0); Mean Corpuscular Volume 84.7 fL (80-98); Mean Platelet Volume 10.3 fL (9.4-12.3); Monocytes Absolute Auto 1.2 X10*3/uL (0.1-1.2); Monocytes Percent Auto 7.6 % (2-11); Neutrophils Absolute Auto 13.1 X10*3/uL (2.0-8.3); Neutrophils Percent Auto 81.4 % (45-73); Platelet Count 157 X10*3/uL (160-400); Red Blood Count 3.67 X10*6/uL (4.20-5.50); Red Cell Distribution Width 13.7 % (11.0-16.0)
[2020-12-25 23:52] LABS: Anion Gap 11 (12-20); Blood Urea Nitrogen 15 mg/dL (9-16); Carbon Dioxide 24 mmol/L (22-29); Chloride 107 mmol/L (96-108); Creatinine Clr Calc Pharmacy 80.2; Estimated Glomerular Filt Rate > 60; Glucose Random 152 mg/dL (60-115); Potassium 3.4 mmol/L (3.3-5.1); Sodium 139 mmol/L (135-145)
[2020-12-26] VITALS (22 sets, daily range): BP systolic 88–123; BP diastolic 38–77; PULSE 79–101; RESP 16–25; TEMP 37.3–39.1; O2SAT 91–97
[2020-12-26 00:34] LABS: Lactic Acid 0.6 mmol/L (0.5-2.0)
[2020-12-26 00:37] LABS: COVID-19 Test Negative (Negative); IDNOW Serial# 9DD0AD1C
[2020-12-26] MEDS: Piperacillin Sodium/Tazobactam 3.375 GM in 0.9 % Sodium Chloride 50 ML IV ×4 (03:11→20:49)
[2020-12-26] MEDS: Acetaminophen 325 MG TABLET 650 MG PO ×2 (03:19→16:48)
--- NOTE | 2020-12-26 08:58 | PC.NURSE ---
This RN went in to speak with patient regarding her morning medications as she stated this morning that no one gave me my medications and my sister will just bring them in for me!! . This RN went over the medication list with the patient, explaining that in the hospital at times her medications may be changed to different names/brands/routes and that given her low blood pressure she would most likely not receive her blood pressure medication. Patient very agitated and repeatedly states to this nurse that she will just take my own medication . Multiple times this RN attempted to redirect the patient saying that the hospitalist can be contacted to change some of her medication if she would like- patient not cooperative or agreeable and refusing all morning medications.
--- NOTE | 2020-12-26 09:17 | HO.PM.IMPN ---
Subjective Subjective Date of Service: 12/26/20 Interval History: F/u on colitis, UTI, persistent pain but better Review of Systems Gen: no fever Resp: no sob, no cough CV: no chest, no SALDAÑA, no leg edema GI: No n/v, + abd pain Neuro: No confusion Physical Exam Vital Signs: Vital Signs: Last Vital Signs Temp 99.7 F 12/26/20 03:04 Pulse 90 12/26/20 06:00 Resp 16 12/26/20 06:00 BP 106/50 L 12/26/20 06:00 Pulse Ox 95 12/26/20 04:38 Body Mass Index 27.4 Const: Other: General: AO X 3, no acute distress Resp: CTA bilateral CVS: S1,S2,RRR GI: +BS, NT, no distention, mind tendernes Skin: No rash Neuro: motor grossly intact Psych: appropriate affect Objective Data Current Medications Generic Name Dose Route Start Last Admin Trade Name Freq PRN Reason Stop Dose Admin Atorvastatin Calcium 10 mg 12/26/20 09:00 Atorvastatin Calcium 10 Mg Tablet PO DAILY CINDY Carisoprodol 350 mg 12/25/20 22:55 Carisoprodol 350 Mg Tablet PO TID PRN Muscle Pain Clonazepam 2 mg 12/26/20 09:12 Clonazepam 1 Mg Tablet PO TID PRN anxiety Enoxaparin Sodium 40 mg 12/25/20 23:00 12/25/20 23:09 Enoxaparin Sodium 40 Mg/0.4 Ml Syringe SUBCUT 40 mg Q24H CINDY Administration Famotidine 20 mg 12/26/20 09:00 Famotidine/Pf 20 Mg/2 Ml Vial IVPUSH BID CINDY Hydromorphone HCl 0.5 mg 12/25/20 21:33 Hydromorphone Hcl 0.5 Mg/0.5 Ml Syringe IVPUSH Q4H PRN Breakthrough Pain Sodium Chloride 1,000 mls @ 100 mls/hr 12/25/20 21:30 12/26/20 08:29 Ns IVCONT Infused .Q10H CINDY Infusion Piperacillin Sod/Tazobactam 50 mls @ 100 mls/hr 12/26/20 03:00 12/26/20 04:07 Sod 3.375 gm/ Sodium Chloride IV Infused Q6H CINDY Infusion Insulin Human Lispro 0 unit 12/26/20 07:30 Insulin Lispro 100 Unit/Ml 3 Ml Vial SUBCUT QIDACHS [facility] Protocol Melatonin 6 mg 12/25/20 21:28 Melatonin 3 Mg Tablet PO BEDTIME PRN Insomnia Melatonin 15 mg 12/25/20 22:55 Melatonin 3 Mg Tablet PO DAILY PRN pain Naloxone HCl 4 mg 12/25/20 22:55 Naloxone Hcl Nasal 4 Mg Benavides NOSTRILALT Q2M PRN opioid overdose Non-Formulary Medication 40 mg 12/26/20 09:15 Pantoprazole PO DAILY [facility] Non-Formulary Medication 300 mg 12/26/20 09:15 Pregabalin PO BID [facility] Ondansetron HCl 4 mg 12/25/20 21:28 Ondansetron Hcl 4 Mg/2 Ml Vial IVPUSH Q8H PRN Nausea and Vomiting Oxycodone HCl 5 mg 12/26/20 09:11 Oxycodone Hcl Immed Release 5 Mg Tablet PO Q6H PRN Pain, Severe (Pain Scale 7-10) Pharmacy Consult 1 each 12/25/20 21:24 Consult Rx Perform Med Rec MISCELLANE ONCE PRN Consult order Sodium Chloride 3 ml 12/26/20 00:00 12/26/20 00:58 0.9 % Sodium Chloride Flush 3 Ml Syringe IVFLUSH Not Given QSHIFT [facility] Labs CBC & Chem 7: 12/25/20 23:14 12/25/20 23:14 Labs: Laboratory Results - last 24 hr 12/25/20 12/25/20 12/25/20 19:32 20:10 20:11 WBC 18.4 H RBC 4.19 L Hgb 11.6 L Hct 35.8 L MCV 85.4 MCH 27.7 MCHC 32.4 RDW 13.6 Plt Count 175 MPV 10.5 Immature Gran % (Auto) 0.4 Neut % (Auto) 81.0 H Lymph % (Auto) 8.1 L [place] % (Auto) 10.2 Eos % (Auto) 0.1 Baso % (Auto) 0.2 Lymph # (Auto) 1.5 [place] # (Auto) 1.9 H Eos # (Auto) 0.0 Baso # (Auto) 0.0 Abs Immat Gran (auto) 0.07 H Absolute Neuts (auto) 14.9 H Absolute Nucleated RBC 0.000 Nucleated RBC % (auto) 0.0 Smear Tech's Comments VERIFIED PT INR Sodium Potassium Chloride Carbon Dioxide Anion Gap BUN Creatinine Estim Creat Clear Calc Estimated GFR Random Glucose Lactic Acid 1.6 Calcium Total Bilirubin Urine Color YELLOW Urine Appearance CLEAR Urine pH 5.5 Ur Specific [place] <= 1.005 Urine Protein NEG Urine Glucose (UA) NEG Urine Ketones NEG Urine Blood 1+ H Urine Nitrite NEG Ur Leukocyte Esterase TRACE H Urine RBC 1-4 Urine WBC 5-9 H Ur Squamous Epith Cells TRACE Ur Renal Epithelial Cell TRACE Urine Bacteria TRACE COVID-19 ([facility]) COVID-19 Clin Com 12/25/20 12/25/20 12/25/20 20:11 20:11 20:11 WBC RBC Hgb Hct MCV MCH MCHC RDW Plt Count MPV Immature Gran % (Auto) Neut % (Auto) Lymph % (Auto) [place] % (Auto) Eos % (Auto) Baso % (Auto) Lymph # (Auto) [place] # (Auto) Eos # (Auto) Baso # (Auto) Abs Immat Gran (auto) Absolute Neuts (auto) Absolute Nucleated RBC Nucleated RBC % (auto) Smear Tech's Comments PT 13.8 H INR 1.2 H Sodium 137 Potassium 4.0 Chloride 103 Carbon Dioxide 24 Anion Gap 14 BUN 18 H Creatinine 0.89 Estim Creat Clear Calc 75.7 Estimated GFR > 60 Random Glucose 147 H Lactic Acid Calcium 8.8 D Total Bilirubin 1.8 H Urine Color Urine Appearance Urine pH Ur Specific [place] Urine Protein Urine Glucose (UA) Urine Ketones Urine Blood Urine Nitrite Ur Leukocyte Esterase Urine RBC Urine WBC Ur Squamous Epith Cells Ur Renal Epithelial Cell Urine Bacteria COVID-19 ([facility]) COVID-19 [employer] Com 12/25/20 12/25/20 12/26/20 23:14 23:14 00:12 WBC 16.0 H RBC 3.67 L Hgb 10.5 L Hct 31.1 L MCV 84.7 MCH 28.6 MCHC 33.8 RDW 13.7 Plt Count 157 L MPV 10.3 Immature Gran % (Auto) 0.5 H Neut % (Auto) 81.4 H Lymph % (Auto) 10.2 L [place] % (Auto) 7.6 Eos % (Auto) 0.1 Baso % (Auto) 0.2 Lymph # (Auto) 1.6 [place] # (Auto) 1.2 Eos # (Auto) 0.0 Baso # (Auto) 0.0 Abs Immat Gran (auto) 0.08 H Absolute Neuts (auto) 13.1 H Absolute Nucleated RBC 0.000 Nucleated RBC % (auto) 0.0 Smear Tech's Comments PT INR Sodium 139 Potassium 3.4 Chloride 107 Carbon Dioxide 24 Anion Gap 11 L BUN 15 Creatinine 0.84 Estim Creat Clear Calc 80.2 Estimated GFR > 60 Random Glucose 152 H Lactic Acid Calcium 8.0 L D Total Bilirubin Urine Color Urine Appearance Urine pH Ur Specific [place] Urine Protein Urine Glucose (UA) Urine Ketones Urine Blood Urine Nitrite Ur Leukocyte Esterase Urine RBC Urine WBC Ur Squamous Epith Cells Ur Renal Epithelial Cell Urine Bacteria COVID-19 ([facility]) Negative COVID-19 Clin Com See Note 12/26/20 00:12 WBC RBC Hgb Hct MCV MCH MCHC RDW Plt Count MPV Immature Gran % (Auto) Neut % (Auto) Lymph % (Auto) [place] % (Auto) Eos % (Auto) Baso % (Auto) Lymph # (Auto) [place] # (Auto) Eos # (Auto) Baso # (Auto) Abs Immat Gran (auto) Absolute Neuts (auto) Absolute Nucleated RBC Nucleated RBC % (auto) Smear Tech's Comments PT INR Sodium Potassium Chloride Carbon Dioxide Anion Gap BUN Creatinine Estim Creat Clear Calc Estimated GFR Random Glucose Lactic Acid 0.6 Calcium Total Bilirubin Urine Color Urine Appearance Urine pH Ur Specific [place] Urine Protein Urine Glucose (UA) Urine Ketones Urine Blood Urine Nitrite Ur Leukocyte Esterase Urine RBC Urine WBC Ur Squamous Epith Cells Ur Renal Epithelial Cell Urine Bacteria COVID-19 ([facility]) COVID-19 Clin Com Imaging Chest x-ray: Radiologist's impression: Impressions Chest X-Ray 12/25/20 17:06 IMPRESSION: Unremarkable examination. Abdomen/Pelvis CT 12/25/20 19:50 IMPRESSION: 1. Quite abnormal exam, there is diffuse marked thickening of the wall of the colon involving the left side of the transverse colon , splenic flecture and the entire descending colon along with mild pericolic fat stranding and fluid along the left gutter, without evidence of significant underlying diverticular disease, differential would include inflammatory, IBD, infection colitis, versus ischemic colitis. Neoplasm felt to be less common. 2. There is also fullness of the distal rectal rectoanal area, cannot rule out underlying process. Clinical correlation and follow-up recommended. 3. Other noncritical findings include postsurgical changes posterior fusion lumbar spine, nonobstructing left kidney stone, splenomegaly. This critical result was discussed with Dr. Irving, osteomyelitis can't rule out with by telephone at 12/25/2020 8:39 PM and it was ascertained that the content and urgency of the report was understood at the time of direct communication. Chest X-Ray 12/26/20 01:06 IMPRESSION: No acute cardiopulmonary findings. CT scan - abdomen: Radiologist's impression: Impressions Chest X-Ray 12/25/20 17:06 IMPRESSION: Unremarkable examination. Abdomen/Pelvis CT 12/25/20 19:50 IMPRESSION: 1. Quite abnormal exam, there is diffuse marked thickening of the wall of the colon involving the left side of the transverse colon , splenic flecture and the entire descending colon along with mild pericolic fat stranding and fluid along the left gutter, without evidence of significant underlying diverticular disease, differential would include inflammatory, IBD, infection colitis, versus ischemic colitis. Neoplasm felt to be less common. 2. There is also fullness of the distal rectal rectoanal area, cannot rule out underlying process. Clinical correlation and follow-up recommended. 3. Other noncritical findings include postsurgical changes posterior fusion lumbar spine, nonobstructing left kidney stone, splenomegaly. This critical result was discussed with Dr. Irving, osteomyelitis can't rule out with by telephone at 12/25/2020 8:39 PM and it was ascertained that the content and urgency of the report was understood at the time of direct communication. Chest X-Ray 12/26/20 01:06 IMPRESSION: No acute cardiopulmonary findings. Quality Stroke Does the patient have a stroke diagnosis?: No VTE Prior VTE?: No VTE Risk Level:: Medical - moderate - high VTE Device Contraindication: N/A - Device Ordered VTE Drug Contraindication: N/A - Med Ordered Assessment and Plan (1) Colitis: Status: Acute Assessment and Plan: 55-year-old female with hypertension, hyperlipidemia, diabetes, opiate dependence on Suboxone, history of cervical cancer, GERD, tobacco use, obesity presented presented with abdominalf nausea vomiting, diarrhea and left-sided abdominal pain as well as urinary symptoms and found to have severe colitis and UTI Colitis--suspect infection given high inflamatory markers -Continue IV Zosy and Flagyl -NPO, IVF -GI eval, she will likely need a scope along the way UTI--same Abx as above, follow culture Incidental rectal lesion-noted on the CT Scan: To be addressed by GI Hypertension:BP on low side (Hold Lisinopril 40, Norvasc 5 home meds0 Diabetes: Hold home metformin. Insulin sliding scale History of opiate dependence: She says she's not on Suboxone, addiction consult. DVT prophylaxis: Lovenox Code status: Full code
--- NOTE | 2020-12-26 09:20 | P.CDIC_ITS ---
CDI Concurrent Query Service Date: 12/26/20 Documentation Clarification: Please clarify if you are treating a proba ble/suspected/likely or confirmed: ? Sepsis is/was present and is a clinical diagnosis based on (please include this additional support in the medical record) ? After study sepsis has been ruled out ? Other ? Unable to determine Provider Response: Sepsis PLEASE DO NOT DELETE/MODIFY EXISTING CONTENT Additional information is needed in order to code to the highest accuracy and appropriate Severity of Illness (SOI). Please clarify the information noted below in your progress notes and discharge summary. Risk Factors/Clinical Indicators/Treatments WBC 18.4 T 102.5, P 94 LA1.6 Blood culture pending Per H&P: most likely infectious colitis, UTI CDS: Luzma Cortez RN Contact Number: [phone] Please Review the information above and exercise your independent professional judgment in responding to the query. If you concur, pleas document in the PROGRESS NOTES and DISCHARGE SUMMARY. If you do not agree with the query, please document in the query above. THIS QUERY IS PART OF THE PERMANENT MEDICAL RECORD
[2020-12-26 09:39] LABS: Basophils Percent Auto 0.2 % (0-2); Eosinophils Percent Auto 0.1 % (0-4); Hematocrit 34.6 % (37-47); Hemoglobin 11.2 g/dl (12.0-16.0); Imm Gran Pct Auto 0.6 % (0.0-0.4); Lymphocytes Absolute Auto 1.2 X10*3/uL (1.2-4.9); Lymphocytes Percent Auto 6.7 % (20-40); MANUAL DIFF FLAG SCAN; Mean Corpuscular HGB Conc 32.4 g/dl (31.0-35.0); Mean Corpuscular Hemoglobin 27.9 pg (27.0-33.0); Mean Corpuscular Volume 86.1 fL (80-98); Mean Platelet Volume 10.4 fL (9.4-12.3); Monocytes Absolute Auto 1.7 X10*3/uL (0.1-1.2); Monocytes Percent Auto 9.4 % (2-11); Platelet Count 156 X10*3/uL (160-400); Red Blood Count 4.02 X10*6/uL (4.20-5.50); Red Cell Distribution Width 13.7 % (11.0-16.0); SCAN SMEAR FLAG 1
[2020-12-26] MEDS: oxyCODONE HCl Immed Release 5 MG TABLET PO (09:51)
[2020-12-26] MEDS: Omeprazole 20 MG CAPSULE.DR PO (09:52)
[2020-12-26] MEDS: 0.9 % Sodium Chloride 1,000 ML 100 ML IVCONT ×2 (09:53→16:42)
[2020-12-26 09:59] LABS: SLIDE REVIEW VERIFIED
[2020-12-26 10:23] LABS: Anion Gap 11 (12-20); Blood Urea Nitrogen 11 mg/dL (9-16); Calcium 8.4 mg/dL (8.4-10.2); Carbon Dioxide 24 mmol/L (22-29); Chloride 108 mmol/L (96-108); Creatinine Clr Calc Pharmacy 86.4; Estimated Glomerular Filt Rate > 60; Glucose Random 137 mg/dL (60-115); Potassium 3.6 mmol/L (3.3-5.1); Sodium 139 mmol/L (135-145)
--- NOTE | 2020-12-26 10:38 | PC.NURSE ---
pharmacy called [facility] regarding lyrica- was told [facility] they would bring the medication down
--- NOTE | 2020-12-26 10:40 | PM.EVENT ---
Event Note Date of Service: 12/26/20 Event Note: Addiction Consult: Addiction consult placed for patient who was thought to be on buprenorphine. Upon discussion with Recovery Support RN, patient is followed by pain management and was at one time prescribed suboxone (for pain), but is no longer. No history of addiction. No follow up needed
--- NOTE | 2020-12-26 11:01 | MHC.RECOVRN ---
Chart review completed. T/w met with pt in ED18 after consult placed to Addiction Medicine. Pt reports being under the care of Dr. Lemon for pain management. Pt was prescribed Suboxone in September, however, it was discontinued. Pt has since been prescribed Percocet for pain. Pt denies taking more than prescribed. Pt denies using other substances. Pt denies history of addiction. Case discussed with Michelle Jimenes APRN.
[2020-12-26] MEDS: Pregabalin 150 MG CAPSULE 300 MG PO ×2 (11:23→20:50)
[2020-12-26 12:48] LABS: Glucose, Whole Blood 132 mg/dL (60-115)
--- NOTE | 2020-12-26 13:16 | MHC.CM.PN ---
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 SHE REPORTS HER DAUGHTER ALSO HAS CARRIAGE RIDER THAT COME IN TO HELP EVERY WEDNESDAY- WEDNESDAY. PT HAS NO SERVICES FOR HERSELF AND DOES NOT USE DME. PT DOES NOT THINK SHE HAS A HCP AND IS NOT INTERESTED IN COMPLETING ONE. PT CONFIRMS HER PCP IS DORI MCCAIN. [facility] DELIVERED CURRENT DC PLAN IS HOME WITH NO SERVICES PT TO ARRANGE TRANSPORT
--- NOTE | 2020-12-26 14:30 | CONS_ITS ---
DATE OF SERVICE: 12/26/2020 REFERRING PHYSICIAN: Rajesh Hair MD REASON FOR CONSULTATION: Colitis and abnormal CT scan. HISTORY OF PRESENT ILLNESS: The patient is a 55-year-old woman, who was admitted to the hospital after presenting to the emergency room yesterday with complaints of fevers, chills, diarrhea, and vomiting. She states she was well until the day before admission when she developed acute watery diarrhea with nausea, vomiting, left-sided abdominal pain, and fevers and chills. She denies any ill contacts or suspect food ingestions, and has not traveled anywhere. She has not been on antibiotics recently. There was no rectal bleeding. She was seen at an [facility] and reportedly had a negative COVID test and was advised to come to the emergency room. In the emergency department, she was evaluated and was noted to be febrile with a white blood cell count of 18. Evaluation with CT scanning was done and this is reviewed. The exam is interpreted as showing diffuse marked thickening of the wall of the colon involving the left side of the transverse colon, splenic flexure, and descending colon with pericolic fat stranding and fluid along the left gutter consistent with colitis. There was also fullness described in the rectal area. The patient did undergo colonoscopy in the fall because of complaints of diarrhea and a question of underlying inflammatory bowel disease. Findings at that time included a stricture at 20 cm, which was dilated and biopsied. The mucosa in areas appeared featureless, but there was no definite colitis. Biopsies were negative for any evidence of colitis. She had some narrowing of the rectum and the retroflexed examination was not possible, but hemorrhoids were noted on withdrawal of the colonoscope. PAST MEDICAL HISTORY: 1. Hypertension. 2. Hyperlipidemia. 3. Diabetes. 4. Arthritis and back pain. 5. Depression. 6. Gastroesophageal reflux disease. 7. Elevated BMI. CURRENT MEDICATIONS: Her current medication list is reviewed in the chart. ALLERGIES: MULTIPLE MEDICATION ALLERGIES ARE REVIEWED. FAMILY HISTORY: This is negative for colon cancer. SOCIAL HISTORY: She does use tobacco. She denies alcohol intake. REVIEW OF SYSTEMS: SKIN: No pruritus. HEENT: Negative. CARDIOPULMONARY: No shortness of breath or chest pain. GASTROINTESTINAL: As above. GENITOURINARY: Negative. NEUROPSYCHIATRIC: Negative. PHYSICAL EXAMINATION: GENERAL: Shows a pleasant female, in no acute distress. VITAL SIGNS: Stable. She does have a temperature of 100.2. SKIN: Pale. HEENT: Shows no scleral icterus. NECK: Without lymphadenopathy or thyromegaly. LUNGS: Clear. HEART: Shows a regular rate and rhythm. S1, S2. No murmur. ABDOMEN: Soft without focal masses. There is no guarding, tenderness, or rebound over the left side. Bowel sounds are present. EXTREMITIES: Without edema. LABORATORY DATA: Shows a white blood cell count this morning of 18, platelet count 156,000. Chemistries show a mild elevation of her total serum bilirubin at 1.8. CT scan is reviewed and shows the findings as noted above. Her presentation appears consistent with an acute infectious colitis. Ischemic colitis seems less likely based on her presentation and lack of bleeding. Her colonoscopy from the fall did not demonstrate any evidence of inflammatory bowel disease and I think this is unlikely at this time. I agree with treating her with antibiotics. I would obtain stool specimens to rule out any treatable infectious etiology and if she does not have improvement, I would consider lower GI tract endoscopy, although she already has had improvement in her diarrhea. Thanks for asking me to see her. I will follow her in the hospital with you. MD BARBARA Chin/BERNARDO / [id number]
--- NOTE | 2020-12-26 14:34 | PC.NURSE ---
ATTEMPTED TO CALL REPORT X1
--- NOTE | 2020-12-26 15:14 | PC.NURSE ---
attempted to call report X2
[2020-12-26 16:27] LABS: Glucose, Whole Blood 122 mg/dL (60-115)
[2020-12-26] MEDS: 0.9 % Sodium Chloride Flush 3 ML SYRINGE IVFLUSH ×2 (16:42→20:50)
[2020-12-26 20:15] LABS: Glucose, Whole Blood 147 mg/dL (60-115)
[2020-12-26 20:45] LABS: Leukocytes Stool Qualitative NEGATIVE (NEGATIVE)
[2020-12-26] MEDS: Famotidine/PF 20 MG/2 ML VIAL IVPUSH (20:49)
[2020-12-26] MEDS: Enoxaparin Sodium 40 MG/0.4 ML SYRINGE SUBCUT (22:51)
[2020-12-27] VITALS (7 sets, daily range): BP systolic 93–111; BP diastolic 41–73; PULSE 75–84; RESP 16–18; TEMP 36.1–37.7; O2SAT 92–97
[2020-12-27] MEDS: oxyCODONE HCl Immed Release 5 MG TABLET PO (03:23)
[2020-12-27] MEDS: Piperacillin Sodium/Tazobactam 3.375 GM in 0.9 % Sodium Chloride 50 ML IV ×4 (03:28→21:28)
[2020-12-27] MEDS: 0.9 % Sodium Chloride 1,000 ML 100 ML IVCONT ×3 (05:40→21:10)
[2020-12-27 07:31] LABS: Glucose, Whole Blood 122 mg/dL (60-115)
--- NOTE | 2020-12-27 09:17 | P.CONGS_ITS ---
Assessment and Plan (1) Colitis: Status: Acute This is a 55-year-old lady admitted 3 days ago likely with infectious colitis. Patient has had significant clinical improvement. She has had no fever today. Stool cultures are still pending. Given that the patient has no abdominal symptoms and has tolerated clear liquid diet, her diet will be advanced. If patient continues to tolerate the advancement of diet would recommend discharge home with follow-up with Dr. Quiroz as an outpatient. No indication for any surgical intervention at this time. Await stool cultures. I spent 45 minutes of time with this patient obtaining history performed a physical exam, reviewing blood work radiologic studies since speaking with Dr. Quiroz regarding this patient and documenting. History of Present Illness Consult details Consult date: 12/27/20 Reason for consult: other (Colitis) Requesting physician: Rajesh Hair Narrative: This is a 55-year-old lady who presented through the emergency department 3 days ago with bilateral lateral abdominal pain that was a 10/10 on a pain scale associated with nausea 4-5 episodes of vomiting and significant diarrhea with blood in it. She also reports having some hematuria at the same time. She denies any previous episodes of this type. She reports that she was very hot and sweaty and continued having bloody diarrhea for couple of hours. She went to the urgent care who sent her to the emergency department. She was supported to be febrile and was admitted to medicine service after having a CT scan that showed inflammatory changes of the colon consistent with colitis in the distal transverse colon descending colon and sigmoid colon. This was thought to be infectious in nature after a consultation from Dr. Quiroz from Gastroenterology. Patient was kept NPO on the 1st hospital day. She slowly had decreasing symptoms including resolution of her nausea vomiting abdominal pain. Patient had decreasing diarrhea and more forming of her stools. She was advanced to a clear liquid diet. She has done well on the clear liquid diet without any symptoms. She is interested in advancing her diet and is interested in being discharged home. Patient had a temperature to 102.3 degrees F maximum yesterday afternoon but has had no fever today. Patient had a white blood cell count that was still at 18,000 yesterday which had been pretty consistent over the past several days. Blood cultures from admission have been negative and stool culture sent yesterday is still pending. She has had no blood work today Review of Systems Constitutional: Constitutional: Denies chills, Denies difficulty sleeping, Denies excessive sweating, Denies fatigue, Denies fever(s), Reports headache(s), Denies night sweats, Denies weakness and Denies weight loss Eyes: Eyes: Denies blurry vision, Denies diplopia, Denies eye discharge and Reports requires corrective lenses ENT: Reports Normal hearing present, Denies change in voice, Reports headache(s), Denies neck mass, Denies sore throat, Denies throat swelling and Denies tongue swelling Cardiovascular: Cardiovascular: Denies chest pain, Denies chest pain at rest, Denies chest pain with activity, Denies edema, Denies leg edema and Denies dyspnea on exertion Respiratory: Respiratory: Reports cough, Denies excessive phlegm production, Denies dyspnea on exertion, Denies stridor and Reports wheezing Gastrointestinal: Gastrointestinal: Denies abdominal pain, Denies melena, Denies bloating, Denies hematochezia, Denies constipation, Reports heartburn, Reports diarrhea, Denies nausea and Denies vomiting Genitourinary: Genitourinary: Denies hematuria, Denies dysuria, Denies urinary incontinence, Denies urinary hesitancy and Denies urinary urgency Musculoskeletal: Musculoskeletal: Reports back pain, Reports arthralgias and Denies muscle weakness Integumentary/Breasts: Skin/Breast: Denies breast swelling, Denies breast pain, Denies breast mass, Denies change in pigmentation, Denies new lesions and Denies rash Neurologic: Reports Normal hearing present, Denies confusion, Reports headache(s), Denies lack of coordination, Denies focal weakness, Denies paresthesias and Denies weakness Psychiatric: Psychiatric: Denies anxiety, Denies confusion and Denies depression Endocrine: Endocrine: Denies cold intolerance, Denies excessive sweating and Denies fatigue Hematologic/Lymphatic: Hematologic/Lymphatic: Denies easy bleeding, Denies easy bruising and Denies lymphadenopathy Allergic/Immunologic: Allergic/Immunologic: Denies urticaria, Denies throat swelling, Denies tongue swelling and Reports wheezing PMFSH Past Medical History Medical History Anxiety Benign essential hypertension Bilateral knee pain Carpal tunnel syndrome of left wrist Cervical cancer DDD (degenerative disc disease), lumbosacral Degenerative joint disease of left knee Depression Diabetes mellitus Failed back syndrome, lumbar Fatty liver GERD without esophagitis History of renal stone Hx of concussion Knee pain, bilateral Left wrist pain Lumbar degenerative disc disease Morbid obesity with BMI of 40.0-44.9, adult Pure hypercholesterolemia Smoker Tibia fracture Family History Family History (Updated 12/27/20 @ 12:42 by Brigitte Mckeon MD) Father Alzheimer disease Mouth cancer Mother Cancer Medical history unknown Sister No problems noted. Brother No problems noted. Maternal Grandfather HTN (hypertension) Maternal Grandmother HTN (hypertension) Surgical History Surgical History History of carpal tunnel release History of lumbar surgery History of surgery (~1999) Hx of colonoscopy Hx of lithotripsy Previous back surgery Social History Social History Household Members: Children Household Members Other:: 2 daughters Housing: Apartment Do you presently have visiting nurse or other home services: Yes Alcohol intake: never Patient Tobacco Use Status: Current everyday Tobacco user Tobacco use type: Cigarette Cigarettes Per Day: 10 Years Smoked: 20 Smoked in Last 30 Days: Yes Patient Interested in Nicotine Replacement: Yes Patient Given Instructions on How to Stop Smoking: No (denies) Use of substances other than those prescribed or required for medical reasons: No Currently Displaying Signs/Symptoms of Drug Intoxication Withdrawal: No Have you been hit, kicked, punched, or otherwise hurt by someone within the past year? If so, by whom?: No Do you feel safe in your current relationship?: No Current Relationship Is there a partner from a previous relationship who is making you feel unsafe now?: No Are you made to feel afraid or neglected: No Spiritual Healthcare Practices: none Christianity Healthcare Practices: none Cultural Healthcare Practices: none Advance Directives: No Advance Directives Information Provided: No Do you have thoughts of harming others: None Do you have a plan to hurt others: No Plan Recently lost weight without trying: Unsure service: No 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al status: unemployed and disabled 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 Meds Allergies Allergy/AdvReac Type Severity Reaction Status Date / Time doxycycline [DOXYCYCLINE] Allergy Severe PALPITATIONS, Verified 12/27/20 12:43 anaphylaxis ibuprofen [IBUPROFEN] Allergy Severe HIVES Verified 12/27/20 12:43 NSAIDS (Non-Steroidal Allergy Severe HIVES Verified 12/27/20 12:43 Anti-Inflamma [NSAIDS (NON-STEROIDAL ANTI-INFLAMMA] cefaclor [From CECLOR] Allergy Intermediate RASH Verified 12/27/20 12:43 acetaminophen [Tylenol] AdvReac Intermediate n/v Verified 12/27/20 12:43 cephalexin [From KEFLEX] AdvReac Intermediate GI UPSET Verified 12/27/20 12:43 codeine [CODEINE] AdvReac Intermediate N/V Verified 12/27/20 12:43 gabapentin [GABAPENTIN] AdvReac Intermediate NAUSEA/VOMI Verified 12/27/20 12:43 TING tolterodine [From DETROL] AdvReac Intermediate PALPITATION Verified 12/27/20 12 :43 S Active Medications: Current Medications Generic Name Dose Route Start Last Admin Trade Name Freq PRN Reason Stop Dose Admin Acetaminophen 650 mg 12/26/20 16:27 12/26/20 16:48 Acetaminophen 325 Mg Tablet PO 650 mg Q4H PRN Administration Pain, Severe (Pain Scale 7-10) Atorvastatin Calcium 10 mg 12/26/20 09:00 12/26/20 09:48 Atorvastatin Calcium 10 Mg Tablet PO Not Given DAILY CINDY Carisoprodol 350 mg 12/25/20 22:55 Carisoprodol 350 Mg Tablet PO TID PRN Muscle Pain Clonazepam 2 mg 12/26/20 09:12 Clonazepam 1 Mg Tablet PO TID PRN anxiety Enoxaparin Sodium 40 mg 12/25/20 23:00 12/26/20 22:51 Enoxaparin Sodium 40 Mg/0.4 Ml Syringe SUBCUT 40 mg Q24H CINDY Administration Famotidine 20 mg 12/26/20 09:00 12/26/20 20:49 Famotidine/Pf 20 Mg/2 Ml Vial IVPUSH 20 mg BID CINDY Administration Hydromorphone HCl 0.5 mg 12/25/20 21:33 Hydromorphone Hcl 0.5 Mg/0.5 Ml Syringe IVPUSH Q4H PRN Breakthrough Pain Sodium Chloride 1,000 mls @ 100 mls/hr 12/25/20 21:30 12/27/20 05:40 Ns IVCONT 100 mls/hr .Q10H CINDY Administration Piperacillin Sod/Tazobactam 50 mls @ 100 mls/hr 12/26/20 03:00 12/27/20 04:09 Sod 3.375 gm/ Sodium Chloride IV Infused Q6H CINDY Infusion Insulin Human Lispro 0 unit 12/26/20 07:30 12/27/20 07:37 Insulin Lispro 100 Unit/Ml 3 Ml Vial SUBCUT Not Given QIDACHS [facility] Protocol Melatonin 6 mg 12/25/20 21:28 Melatonin 3 Mg Tablet PO BEDTIME PRN Insomnia Melatonin 15 mg 12/25/20 22:55 Melatonin 3 Mg Tablet PO DAILY PRN pain Naloxone HCl 4 mg 12/25/20 22:55 Naloxone Hcl Nasal 4 Mg [place] NOSTRILALT Q2M PRN opioid overdose Omeprazole 20 mg 12/26/20 09:30 12/26/20 09:52 Omeprazole 20 Mg Capsule.Dr PO 20 mg DAILY CINDY Administration Ondansetron HCl 4 mg 12/25/20 21:28 Ondansetron Hcl 4 Mg/2 Ml Vial IVPUSH Q8H PRN Nausea and Vomiting Oxycodone HCl 5 mg 12/26/20 09:11 12/27/20 03:23 Oxycodone Hcl Immed Release 5 Mg Tablet PO 5 mg Q6H PRN Administration Pain, Severe (Pain Scale 7-10) Pharmacy Consult 1 each 12/25/20 21:24 Consult Rx Perform Med Rec MISCELLANE ONCE PRN Consult order Pregabalin 300 mg 12/26/20 09:30 12/26/20 20:50 Pregabalin 150 Mg Capsule PO 300 mg BID CINDY Administration Sodium Chloride 3 ml 12/26/20 00:00 12/26/20 20:50 0.9 % Sodium Chloride Flush 3 Ml Syringe IVFLUSH 3 ml QSHIFT CINDY Administration Home Medications Medication Instructions Recorded Confirmed Last Taken Type buprenorphine-naloxone 1 strip SUBLINGUAL Q12H 12/25/20 12/25/20 Unknown History carisoprodol 350 mg PO TID PRN 12/25/20 12/25/20 Unknown History Physical Exam Vital Signs: Vital Signs: Last Vital Signs Temp 98.6 F 12/27/20 07:22 Pulse 82 12/27/20 07:22 Resp 18 12/27/20 07:22 BP 106/61 12/27/20 07:22 Pulse Ox 95 12/27/20 07:22 Body Mass Index 27.4 Const: General: No confusion Orientation/consciousness: No confusion HENMT: Head: Yes normal to inspection, Yes normocephalic and Yes atraumatic Ears: hearing grossly normal bilaterally Mouth: Normal oral and palatal mucosa present and tongue normal Throat: Yes posterior oropharynx normal Eyes: Other: Wearing glasses General: appearance normal, both eyes and all related structures Eyelids: Yes eyelids normal Sclerae: sclerae normal EOM: EOMs intact bilaterally Neck: Neck: Yes normal visual inspection, Yes no lymphadenopathy, Yes trachea midline and No lymphadenopathy Thyroid: Thyroid normal Resp: Effort & Inspection: normal respiratory effort Auscultation: clear to auscultation bilaterally Cardio: Jugular venous distension: no JVD Heart sounds: S1 normal heart sound present and S2 normal heart sound present GI: Inspection: Yes normal to inspection, No Abdominal wall edema, No distended, Yes incision (Well-healed lower abdominal left paramedian surgical scar) and Yes obesity Palpation (GI): Soft to palpation, nontender, no guarding, No hepatosplenomegaly present, no hernias and no masses Percussion: Yes normal to percussion Rectal Exam - Female: deferred Skin: General skin exam: no rashes or lesions noted Neuro: General: No confusion Cranial nerves: Yes Normal hearing present Extrem: General: Yes normal to inspection, Yes full ROM, Yes no clubbing, cyanosis or edema and Yes no calf tenderness Psych: Appearance: grossly normal Mental Status: mental status grossly normal Speech and movement: Normal speech and movement present Affect: normal affect Attitude: cooperative Results Labs Result diagrams: 12/26/20 09:30 12/26/20 09:30 Labs: Abnormal lab results 12/26/20 12/26/20 12/26/20 Range/Units 09:30 09:30 12:45 WBC 18.0 H (4.8-10.8) X10*3/uL RBC 4.02 L (4.20-5.50) X10*6/uL Hgb 11.2 L (12.0-16.0) g/dl Hct 34.6 L (37-47) % Plt Count 156 L (160-400) X10*3/uL Immature Gran % (Auto) 0.6 H (0.0-0.4) % Neut % (Auto) 83.0 H (45-73) % Lymph % (Auto) 6.7 L (20-40) % [place] # (Auto) 1.7 H (0.1-1.2) X10*3/uL Abs Immat Gran (auto) 0.10 H (0.00-0.03) X10*3/uL Absolute Neuts (auto) 15.0 H (2.0-8.3) X10*3/uL Anion Gap 11 L (12-20) POC Glucose 132 H (60-115) mg/dL Random Glucose 137 H (60-115) mg/dL 12/26/20 12/26/20 12/27/20 Range/Units 16:23 20:11 07:20 WBC (4.8-10.8) X10*3/uL RBC (4.20-5.50) X10*6/uL Hgb (12.0-16.0) g/dl Hct (37-47) % Plt Count (160-400) X10*3/uL Immature Gran % (Auto) (0.0-0.4) % Neut % (Auto) (45-73) % Lymph % (Auto) (20-40) % [place] # (Auto) (0.1-1.2) X10*3/uL Abs Immat Gran (auto) (0.00-0.03) X10*3/uL Absolute Neuts (auto) (2.0-8.3) X10*3/uL Anion Gap (12-20) POC Glucose 122 H 147 H 122 H (60-115) mg/dL Random Glucose (60-115) mg/dL Short CBC 12/26/20 Range/Units 09:30 WBC 18.0 H (4.8-10.8) X10*3/uL Hgb 11.2 L (12.0-16.0) g/dl Hct 34.6 L (37-47) % Plt Count 156 L (160-400) X10*3/uL BMP 12/26/20 09:30 Sodium 139 Potassium 3.6 Chloride 108 Carbon Dioxide 24 BUN 11 Creatinine 0.78 Calcium 8.4 Urine 12/25/20 Range/Units 19:32 Urine Color YELLOW Urine Appearance CLEAR Urine pH 5.5 (5.0-8.0) Ur Specific [place] <= 1.005 (1.005-1.025) Urine Protein NEG (NEG-TRACE) MG/DL Urine Glucose (UA) NEG (NEG) MG/DL All other labs normal. Procedures Date of Service Date of Service: 12/27/20
[2020-12-27] MEDS: Pregabalin 150 MG CAPSULE 300 MG PO ×2 (09:55→21:09)
[2020-12-27] MEDS: 0.9 % Sodium Chloride Flush 3 ML SYRINGE IVFLUSH (09:55)
[2020-12-27] MEDS: Omeprazole 20 MG CAPSULE.DR PO (09:55)
[2020-12-27] MEDS: Atorvastatin Calcium 10 MG TABLET PO (09:55)
[2020-12-27] MEDS: Famotidine/PF 20 MG/2 ML VIAL IVPUSH ×2 (09:56→21:08)
[2020-12-27] MEDS: clonazePAM 1 MG TABLET 2 MG PO ×2 (10:07→21:09)
--- NOTE | 2020-12-27 11:17 | MHC.CM.PN ---
EMR REVIEWED, PT CONT'S TO HAVE A HIGH GRADE FEVER, ON IVF AND IV ABX, PER HOSPITALIST NO PLAN FOR D/C TODAY, POSSIBLE D/C OVER W/E. D/C PLAN: HOME SELF-CARE, PT TO ARRANGE TRANSPORT.
[2020-12-27 11:29] LABS: Glucose, Whole Blood 122 mg/dL (60-115)
--- NOTE | 2020-12-27 12:12 | PM.GIPN ---
Progress Note: A&P Assessment and plan (1) Colitis: Status: Acute Assessment and Plan: stool studies neg so far, culture pending advance diet, can d/c when tolerating diet can f/u as outpatient no plans for colonoscopy during this admission as it is unlikely to add much. Fall Risk Details Current Medications: Current Medications Generic Name Dose Route Start Last Admin Trade Name Freq PRN Reason Stop Dose Admin Acetaminophen 650 mg 12/26/20 16:27 12/26/20 16:48 Acetaminophen 325 Mg Tablet PO 650 mg Q4H PRN Administration Pain, Severe (Pain Scale 7-10) Atorvastatin Calcium 10 mg 12/26/20 09:00 12/27/20 09:55 Atorvastatin Calcium 10 Mg Tablet PO 10 mg DAILY CINDY Administration Carisoprodol 350 mg 12/25/20 22:55 Carisoprodol 350 Mg Tablet PO TID PRN Muscle Pain Clonazepam 2 mg 12/26/20 09:12 12/27/20 10:07 Clonazepam 1 Mg Tablet PO 2 mg TID PRN Administration anxiety Enoxaparin Sodium 40 mg 12/25/20 23:00 12/26/20 22:51 Enoxaparin Sodium 40 Mg/0.4 Ml Syringe SUBCUT 40 mg Q24H CINDY Administration Famotidine 20 mg 12/26/20 09:00 12/27/20 09:56 Famotidine/Pf 20 Mg/2 Ml Vial IVPUSH 20 mg BID CINDY Administration Hydromorphone HCl 0.5 mg 12/25/20 21:33 Hydromorphone Hcl 0.5 Mg/0.5 Ml Syringe IVPUSH Q4H PRN Breakthrough Pain Sodium Chloride 1,000 mls @ 100 mls/hr 12/25/20 21:30 12/27/20 12:05 Ns IVCONT Not Given .Q10H CINDY Piperacillin Sod/Tazobactam 50 mls @ 100 mls/hr 12/26/20 03:00 12/27/20 10:37 Sod 3.375 gm/ Sodium Chloride IV Infused Q6H CINDY Infusion Insulin Human Lispro 0 unit 12/26/20 07:30 12/27/20 11:31 Insulin Lispro 100 Unit/Ml 3 Ml Vial SUBCUT Not Given QIDACHS CINDY Protocol Melatonin 6 mg 12/25/20 21:28 Melatonin 3 Mg Tablet PO BEDTIME PRN Insomnia Melatonin 15 mg 12/25/20 22:55 Melatonin 3 Mg Tablet PO DAILY PRN pain Naloxone HCl 4 mg 12/25/20 22:55 Naloxone Hcl Nasal 4 Mg [place] NOSTRILALT Q2M PRN opioid overdose Omeprazole 20 mg 12/26/20 09:30 12/27/20 09:55 Omeprazole 20 Mg Capsule. PO 20 mg DAILY CINDY Administration Ondansetron HCl 4 mg 12/25/20 21:28 Ondansetron Hcl 4 Mg/2 Ml Vial IVPUSH Q8H PRN Nausea and Vomiting Oxycodone HCl 5 mg 12/26/20 09:11 12/27/20 03:23 Oxycodone Hcl Immed Release 5 Mg Tablet PO 5 mg Q6H PRN Administration Pain, Severe (Pain Scale 7-10) Pharmacy Consult 1 each 12/25/20 21:24 Consult Rx Perform Med Rec MISCELLANE ONCE PRN Consult order Pregabalin 300 mg 12/26/20 09:30 12/27/20 09:55 Pregabalin 150 Mg Capsule PO 300 mg BID CINDY Administration Sodium Chloride 3 ml 12/26/20 00:00 12/27/20 09:55 0.9 % Sodium Chloride Flush 3 Ml Syringe IVFLUSH 3 ml QSHIFT CINDY Administration Time Spent With Patient Time: Total time spent is greater than 50% in coordination of care (as documented) at patient's floor/unit and/or counseling patient: Time with patient: 15 - 24 minutes Subjective Subjective Date of Service: 12/27/20 Critical Care Time (minutes): 0 Comment: feels better t max 99.8 this am hungry diarrhea improving no vomiting, tolerating clears Physical Exam Vital Signs: Vital Signs: Last Vital Signs Temp 97.4 F 12/27/20 11:22 Pulse 75 12/27/20 11:22 Resp 18 12/27/20 11:22 BP 96/51 L 12/27/20 11:22 Pulse Ox 95 12/27/20 11:22 Body Mass Index 27.4 Const: General: comfortable GI: Other: abdomen soft nontender, no masses Objective Data Labs CBC & Chem 7: 12/26/20 09:30 12/26/20 09:30 Labs: Laboratory Results - last 24 hr 12/26/20 12/26/20 12/26/20 12:45 16:23 19:45 POC Glucose 132 H 122 H Stool Leukocytes, Qual NEGATIVE 12/26/20 12/27/20 12/27/20 20:11 07:20 11:21 POC Glucose 147 H 122 H 122 H Stool Leukocytes, Qual Microbiology Microbiology Results: Microbiology 12/25/20 19:32 Urine clean catch - Clean Catch Midstream Urine Culture - Final 12/26/20 19:45 Stool Stool Culture - Preliminary Culture in progress. 12/25/20 20:11 Blood - Venous Blood Culture - Preliminary No growth after 24 hours. 12/25/20 17:34 Blood - Venous Blood Culture - Preliminary No growth after 24 hours. Procedures Date of Service Date of Service: 12/27/20 Quality Stroke Does the patient have a stroke diagnosis?: No VTE Prior VTE?: No VTE Risk Level:: Medical - moderate - high VTE Device Contraindication: N/A - Device Ordered VTE Drug Contraindication: N/A - Med Ordered
--- NOTE | 2020-12-27 12:38 | HO.PM.IMPN ---
Subjective Subjective Date of Service: 12/27/20 Interval History: F/u on colitis, UTI, pain is better, last fever 1800 yesterday Review of Systems Gen: no fever Resp: no sob, no cough CV: no chest, no SALDAÑA, no leg edema GI: No n/v, + abd pain Neuro: No confusion Physical Exam Vital Signs: Vital Signs: Last Vital Signs Temp 97.4 F 12/27/20 11:22 Pulse 75 12/27/20 11:22 Resp 18 12/27/20 11:22 BP 96/51 L 12/27/20 11:22 Pulse Ox 95 12/27/20 11:22 Body Mass Index 27.4 Const: Other: General: AO X 3, no acute distress Resp: CTA bilateral CVS: S1,S2,RRR GI: +BS, NT, no distention, mind tendernes Skin: No rash Neuro: motor grossly intact Psych: appropriate affect Objective Data Current Medications Generic Name Dose Route Start Last Admin Trade Name Freq PRN Reason Stop Dose Admin Acetaminophen 650 mg 12/26/20 16:27 12/26/20 16:48 Acetaminophen 325 Mg Tablet PO 650 mg Q4H PRN Administration Pain, Severe (Pain Scale 7-10) Atorvastatin Calcium 10 mg 12/26/20 09:00 12/27/20 09:55 Atorvastatin Calcium 10 Mg Tablet PO 10 mg DAILY CINDY Administration Carisoprodol 350 mg 12/25/20 22:55 Carisoprodol 350 Mg Tablet PO TID PRN Muscle Pain Clonazepam 2 mg 12/26/20 09:12 12/27/20 10:07 Clonazepam 1 Mg Tablet PO 2 mg TID PRN Administration anxiety Enoxaparin Sodium 40 mg 12/25/20 23:00 12/26/20 22:51 Enoxaparin Sodium 40 Mg/0.4 Ml Syringe SUBCUT 40 mg Q24H CINDY Administration Famotidine 20 mg 12/26/20 09:00 12/27/20 09:56 Famotidine/Pf 20 Mg/2 Ml Vial IVPUSH 20 mg BID CINDY Administration Hydromorphone HCl 0.5 mg 12/25/20 21:33 Hydromorphone Hcl 0.5 Mg/0.5 Ml Syringe IVPUSH Q4H PRN Breakthrough Pain Sodium Chloride 1,000 mls @ 100 mls/hr 12/25/20 21:30 12/27/20 12:05 Ns IVCONT Not Given .Q10H CINDY Piperacillin Sod/Tazobactam 50 mls @ 100 mls/hr 12/26/20 03:00 12/27/20 10:37 Sod 3.375 gm/ Sodium Chloride IV Infused Q6H CINDY Infusion Insulin Human Lispro 0 unit 12/26/20 07:30 12/27/20 11:31 Insulin Lispro 100 Unit/Ml 3 Ml Vial SUBCUT Not Given QIDACHS [facility] Protocol Melatonin 6 mg 12/25/20 21:28 Melatonin 3 Mg Tablet PO BEDTIME PRN Insomnia Melatonin 15 mg 12/25/20 22:55 Melatonin 3 Mg Tablet PO DAILY PRN pain Naloxone HCl 4 mg 12/25/20 22:55 Naloxone Hcl Nasal 4 Mg [place] NOSTRILALT Q2M PRN opioid overdose Omeprazole 20 mg 12/26/20 09:30 12/27/20 09:55 Omeprazole 20 Mg Capsule.Dr PO 20 mg DAILY CINDY Administration Ondansetron HCl 4 mg 12/25/20 21:28 Ondansetron Hcl 4 Mg/2 Ml Vial IVPUSH Q8H PRN Nausea and Vomiting Oxycodone HCl 5 mg 12/26/20 09:11 12/27/20 03:23 Oxycodone Hcl Immed Release 5 Mg Tablet PO 5 mg Q6H PRN Administration Pain, Severe (Pain Scale 7-10) Pharmacy Consult 1 each 12/25/20 21:24 Consult Rx Perform Med Rec MISCELLANE ONCE PRN Consult order Pregabalin 300 mg 12/26/20 09:30 12/27/20 09:55 Pregabalin 150 Mg Capsule PO 300 mg BID [facility] Administration Sodium Chloride 3 ml 12/26/20 00:00 12/27/20 09:55 0.9 % Sodium Chloride Flush 3 Ml Syringe IVFLUSH 3 ml QSHIFT [facility] Administration Labs CBC & Chem 7: 12/26/20 09:30 12/26/20 09:30 Labs: Laboratory Results - last 24 hr 12/26/20 12/26/20 12/26/20 12:45 16:23 19:45 POC Glucose 132 H 122 H Stool Leukocytes, Qual NEGATIVE 12/26/20 12/27/20 12/27/20 20:11 07:20 11:21 POC Glucose 147 H 122 H 122 H Stool Leukocytes, Qual Microbiology Microbiology Results: Microbiology 12/25/20 19:32 Urine Culture - Final Urine clean catch - Clean Catch Midstream 12/26/20 19:45 Stool Culture - Preliminary Stool Culture in progress. 12/25/20 20:11 Blood Culture - Preliminary Blood - Venous No growth after 24 hours. 12/25/20 17:34 Blood Culture - Preliminary Blood - Venous No growth after 24 hours. Quality Stroke Does the patient have a stroke diagnosis?: No VTE Prior VTE?: No VTE Risk Level:: Medical - moderate - high VTE Device Contraindication: N/A - Device Ordered VTE Drug Contraindication: N/A - Med Ordered Assessment and Plan (1) Colitis: Status: Acute Assessment and Plan: 55-year-old female with hypertension, hyperlipidemia, diabetes, opiate dependence on Suboxone, history of cervical cancer, GERD, tobacco use, obesity presented presented with abdominalf nausea vomiting, diarrhea and left-sided abdominal pain as well as urinary symptoms and found to have severe colitis and UTI Colitis--suspect infection given high inflamatory markers -Continue IV Zosy and Flagyl D2, change to Augmentin and PO flagyl tomorrow -Advance diet -GI recommend no intervention UTI--same Abx as above, follow culture Incidental rectal lesion-noted on the CT Scan: No intervetion at this time per gi Hypertension:BP on low side (Hold Lisinopril 40, Norvasc 5 home meds0 Diabetes: Hold home metformin. Insulin sliding scale History of opiate dependence: She says she's not on Suboxone, addiction service following Probable discharge tomorrow DVT prophylaxis: Lovenox Code status: Full code
[2020-12-27 15:39] LABS: Glucose, Whole Blood 133 mg/dL (60-115)
--- NOTE | 2020-12-27 16:22 | MHC.CM.PN ---
CM MET W/PT WHO REQUESTED INFO ON COLIITIS AND WHAT FOODS TO EAT, NURSE LEADER PRINTED OUT INFORMATIONAL HANDOUT ON TOPIC AND THIS CM REVIEWED INFO W/PT.
[2020-12-28] MEDS: 0.9 % Sodium Chloride Flush 3 ML SYRINGE IVFLUSH ×2 (01:59→10:31)
[2020-12-28 04:00] VITALS: BP 140/86; PULSE 68; RESP 18; TEMP 37; O2SAT 96
[2020-12-28] MEDS: Piperacillin Sodium/Tazobactam 3.375 GM in 0.9 % Sodium Chloride 50 ML IV (04:34)
[2020-12-28 07:03] LABS: Glucose, Whole Blood 105 mg/dL (60-115)
[2020-12-28 07:59] VITALS: BP 124/63; PULSE 69; RESP 20; TEMP 37.3; O2SAT 95
[2020-12-28 09:39] LABS: Hematocrit 30.1 % (37-47); Hemoglobin 9.8 g/dl (12.0-16.0); Mean Corpuscular HGB Conc 32.6 g/dl (31.0-35.0); Mean Corpuscular Hemoglobin 28.2 pg (27.0-33.0); Mean Corpuscular Volume 86.7 fL (80-98); Mean Platelet Volume 10.9 fL (9.4-12.3); Platelet Count 172 X10*3/uL (160-400); Red Blood Count 3.47 X10*6/uL (4.20-5.50); Red Cell Distribution Width 13.8 % (11.0-16.0); White Blood Count 10.6 X10*3/uL (4.8-10.8)
[2020-12-28] MEDS: Omeprazole 20 MG CAPSULE.DR PO (10:31)
--- NOTE | 2020-12-28 10:59 | P.DS_ITS ---
DS: Providers Provider Date of Service: 12/28/20 Date of admission: 12/25/20 21:28 Primary care physician: Matt Camara MD Consults: 12/25/20 21:28 Consult to Gastroenterology Routine Consulting Provider: Clare Gaitan Reason for consultation: severe colitis; ?rectal lesion Consult to General Surgery Routine Consulting Provider: Андрей Lazar Reason for consultation: Severe colitis 12/25/20 22:56 Addiction Medicine Routine Consulting Provider: Michelle Jimenes Reason for consultation: opiate dependence; on suboxone DS: Diagnosis Discharge Diagnosis (1) Colitis: Status: Acute DS: Medications Discharge Medications Home Medications: Home Medications Medication Instructions Recorded Confirmed buprenorphine-naloxone 1 strip SUBLINGUAL Q12H 12/25/20 12/25/20 carisoprodol 350 mg PO TID PRN 12/25/20 12/25/20 Previous Rx's Medication Instructions Recorded metformin 500 mg tablet,extended 1,000 mg PO BID 30 Days #120 tab 06/12/20 release 24 hr pregabalin 300 mg capsule 300 mg PO BID 30 Days #60 cap 06/12/20 naloxone 4 mg/actuation nasal spray 4 mg INTRANASAL Q2M PRN 1 Days #2 09/17/20 ea pantoprazole 40 mg tablet,delayed 40 mg PO DAILY #90 cap 09/29/20 release atorvastatin 10 mg tablet 10 mg PO DAILY 90 Days #90 tab 11/28/20 clonazepam 2 mg tablet 2 mg PO TID PRN 30 Days #90 tab 11/28/20 lisinopril 40 mg tablet 40 mg PO DAILY 90 Days #90 tab 11/29/20 meloxicam 15 mg tablet 15 mg PO DAILY PRN 90 Days #90 tab 11/29/20 oxycodone-acetaminophen 5 mg-325 1 tab PO Q8H PRN 30 Days #90 tab 12/25/20 mg tablet amlodipine 5 mg tablet 5 mg PO DAILY #30 tab 12/27/20 DS: Summary Hospital Course Hospital Course: Date of admiision: 12/25/20 Chief Complaint: Left sided Abd pain 55-year-old female with a past medical history of hypertension, hyperlipidemia, diabetes, obesity, degenerative joint disease, anxiety, depression, GERD history of cervical cancer, chronic back pain history of tobacco use, presented to the hospital today with a chief complaint of nausea vomiting and left-sided abdo merline pain; patient reported that she had few episodes of diarrhea yesterday; today she did not have any episode of diarrhea. Patient reported that she has been having frequency urgency dysuria for the past few days; noted dark urine vs blood. Denies any chest pain palpitations lightheadedness or dizziness. Denies any fever chills cough. Denies any numbness or tingling. Review of all other systems is negative except mentioned above ER course: Per ER team patient noted to have lactate of 1.6. Compared to 102 F; blood cultures were sent. Given IV antibiotics. CT abdomen showed marked thickening of the left side of the colon including transverse colon, descending colon, splenic flexure and mild pericolic fat stranding with fluid on the left gutter; ER team mentioned that patient's lactate was 1.6 and patient's abdomen was not severely tender; less concern for ischemic colitis. Reported that patient denied any signs of bleeding. Hemoglobin stable. Mentioned that most likely infectious colitis given patient had diarrhea. Admitted for further management. ER team also mentioned that patient had an episode of low blood pressure with systolic 71; mentioned that likely wrong reading as the patient was alert and awake without any symptoms, no tachycardia; at the same time the manual systolic blood pressure was 91. Patient received IV fluids. Hospital course: Patient presented with abdominal pain, pain, n/v and diarrhea. CT showed left sided colitis and her WBC was 18K, she met sepsis criteria. She had an episode of low BP which seem to be related to much BP meds. She was treated with with IV Zosyn for infectious colitis with rapid improvment, and presetnly doesn't have pain, no diarrhea and her WBC has returned to normal. She was seen by Dr. Quiroz and no indication for colonoscopy but will follow up on outpatient basis. She is tolerating regular diet. She will be discharge with oral Augmentin and Flagyl for a totla of 10 days. To follow up with Dr. Quiroz. HTN--Her blood pressure was low when she presented, she takes Norvasc 5 daily, Lisinopril 40 daily. Her SBP has not been more than 140, most of the time much lower, presently 124/63. I am Time Spent with Patient Time attestation: Total time spent providing and/or coordinating discharge services: Discharge coordination time: Greater than 30 minutes Quality: Stroke Does the patient have a stroke diagnosis?: No Physical Exam Vital Signs: Vital Signs: Last Vital Signs Temp 99.2 F 12/28/20 07:59 Pulse 69 12/28/20 07:59 Resp 20 12/28/20 07:59 BP 124/63 12/28/20 07:59 Pulse Ox 95 12/28/20 07:59 Body Mass Index 27.4 DS: Data Data Completed and Pending Labs on day of discharge: Laboratory Results - last 24 hr 12/27/20 12/27/20 12/28/20 11:21 15:32 06:56 WBC RBC Hgb Hct MCV MCH MCHC RDW Plt Count MPV Absolute Nucleated RBC Nucleated RBC % (auto) POC Glucose 122 H 133 H 105 12/28/20 09:11 WBC 10.6 RBC 3.47 L Hgb 9.8 L Hct 30.1 L MCV 86.7 MCH 28.2 MCHC 32.6 RDW 13.8 Plt Count 172 MPV 10.9 Absolute Nucleated RBC 0.000 Nucleated RBC % (auto) 0.0 POC Glucose Preliminary micro results at discharge 12/26/20 19:45 Stool Culture - Preliminary Stool Culture in progress. 12/25/20 20:11 Blood Culture - Preliminary Blood - Venous No growth after 48 hours. 12/25/20 17:34 Blood Culture - Preliminary Blood - Venous No growth after 48 hours. Discharge Plan Discharge Anticipated Discharge Date/Time: 12/28/20 10:51 Patient Disposition: Home, Self-Care Discharge Diagnosis: colitis Referrals: Matt Camara MD [Primary Care Provider] - 1 Week Christopher Quiroz [Physician] - 2 Weeks Discharge Medications: New amoxicillin-pot clavulanate [Augmentin] 875-125 mg tablet 1 tab PO BID Qty: 14 RF: 0 metronidazole [Flagyl] 500 mg tablet 500 mg PO Q12H Qty: 14 RF: 0 Continued metformin 500 mg tablet extended release 24 hr 1,000 mg PO BID 30 Days Qty: 120 RF: 0 pregabalin 300 mg capsule 300 mg PO BID 30 Days Qty: 60 RF: 0 pantoprazole 40 mg tablet,delayed release (DR/EC) 40 mg PO DAILY Qty: 90 RF: 3 atorvastatin 10 mg tablet 10 mg PO DAILY 90 Days Qty: 90 RF: 1 clonazepam [Klonopin] 2 mg tablet 2 mg PO TID PRN (Reason: anxiety) 30 Days Qty: 90 RF: 0 meloxicam 15 mg tablet 15 mg PO DAILY PRN (Reason: pain) 90 Days Qty: 90 RF: 0 lisinopril 40 mg tablet 40 mg PO DAILY 90 Days Qty: 90 RF: 1 amlodipine 5 mg tablet 5 mg PO DAILY Qty: 30 RF: 3 carisoprodol 350 mg tablet 350 mg PO TID PRN (Reason: Muscle Pain) RF: 0 buprenorphine-naloxone 8-2 mg film 1 strip sublingual Q12H RF: 0 Narcan 4 mg/actuation spray,non-aerosol 4 mg intranasal Q2M PRN (Reason: opioid overdose) 1 Days Qty: 2 RF: 1 No Action oxycodone-acetaminophen 5-325 mg tablet 1 tab PO Q8H PRN (Reason: pain) 30 Days Qty: 90 RF: 0 Discharge Orders: Discharge Order (Routine); Ordered 12/28/20 Ordered By: Rajesh Johnson Diet: advance to usual diet and diabetic diet Activity on Discharge: As tolerated Stand Alone Forms: Patient Portal Discharge page Care Plan Goals: Full recovery from colitis Health Concerns: colitis Plan of Treatment: Take Augmentina and Flagyl as recommended and follow up with Dr. Quiroz and your PCP Assessment: As above Patient Instructions: Colitis (ED) Discharge Date/Time: 12/28/20 13:41
[2020-12-28 11:13] LABS: Glucose, Whole Blood 156 mg/dL (60-115)
[2020-12-28 11:39] VITALS: BP 119/61; PULSE 71; RESP 20; TEMP 36.7; O2SAT 97
[2020-12-28] MEDS: Pregabalin 150 MG CAPSULE 300 MG PO (11:44)
[2020-12-28] MEDS: Amoxicillin/Potassium Clav 875 MG TABLET PO (11:45)
[2020-12-28] MEDS: metroNIDAZOLE 500 MG TABLET PO (11:45)
--- NOTE | 2020-12-28 12:09 | MHC.CM.PN ---
PT CLEARED TO DC HOME TODAY WITH NO SERVICES. IMM DELIVERED ON 12/26/20, NO FOLLOW UP REQUIRED. PT TO ARRANGE TRANSPORT
== END 2020-12-28 13:41 | disposition home or self-care (01) | DRG 872 ==
LOC: HO.ED 21:23 → HO.EDOVER 21:50 → HO.IMC 12-26 14:21
PROVIDERS: Internal Medicine Gastroenterology; Admitting Provider Hospitalist; Emergency Provider Emergency Medicine; PCP Internal Medicine; Visit Provider Internal Medicine
DX: A41.9 Sepsis, unspecified organism (principal); N39.0 Urinary tract infection, site not specified; F11.20 Opioid dependence, uncomplicated; A09 Infectious gastroenteritis and colitis, unspecified; R31.9 Hematuria, unspecified; K52.9 Noninfective gastroenteritis and colitis, unspecified; Z87.442 Personal history of urinary calculi; F41.9 Anxiety disorder, unspecified; F17.210 Nicotine dependence, cigarettes, uncomplicated; Z71.6 Tobacco abuse counseling; Z20.822 Contact with and (suspected) exposure to COVID-19; Z85.41 Personal history of malignant neoplasm of cervix uteri; Z88.5 Allergy status to narcotic agent; Z88.6 Allergy status to analgesic agent; Z79.1 Long term (current) use of non-steroidal anti-inflammatories (NSAID); Z79.899 Other long term (current) drug therapy
CPT/HCPCS: 36415; 71045; 74176; 80048; 81001; 81003; 82247; 82947; 83605; 85025; 85027; 85610; 87040; 87045; 87046; 87086; 87177; 87209; 87635; 89055; 99285; J1650; J2543

== ENCOUNTER 2021-01-02 09:20 | Outpatient (AMB) | payer MEDICARE, MEDICAID, SELFPAY ==
--- NOTE | 2021-01-02 09:23 | MHC.PC.OV ---
Vital Signs 01/02/21 09:38 Height 5 ft 5 in Weight 246 lb BMI 40.9 BP 136/80 Pulse 84 Pulse Source Pulse Oximeter Temp 98.1 F Pulse Oximetry (%) 97 Oxygen Delivery Method Room Air [facility] Medical History Elevated cholesterol GI bleed Weight loss Carpal tunnel syndrome of left wrist Left wrist pain Bilateral knee pain Failed back syndrome, lumbar Knee pain, bilateral GERD without esophagitis History of renal stone Fatty liver DDD (degenerative disc disease), lumbosacral Hx of concussion Pure hypercholesterolemia Degenerative joint disease of left knee Morbid obesity with BMI of 40.0-44.9, adult Smoker Depression Anxiety Benign essential hypertension Diabetes mellitus Cervical cancer Tibia fracture Lumbar degenerative disc disease Surgical History (Updated 09/08/23 @ 11:42 by MURTAZA Olvera) Hx of thumb surgery Hx of elbow surgery History of repair of left rotator cuff Status post trigger finger release History of carpal tunnel release Hx of lithotripsy Hx of colonoscopy History of lumbar surgery History of carpal tunnel release History of surgery (~1999) Previous back surgery Family History Father Alzheimer disease Mouth cancer Mother Cancer Medical history unknown Sister No problems noted. Brother No problems noted. Maternal Grandfather HTN (hypertension) Maternal Grandmother HTN (hypertension) Other Mental health problem Social History Household Members: Family Household Members Other:: daughter Housing: Apartment Are you a primary regular senior care provider to a significant other at home: Yes (daughter-will have help post-op) Do you presently have visiting nurse or other home services: No Alcohol intake: never Comment: + Patient Tobacco Use Status: Current everyday Tobacco user Tobacco use type: Cigarette Cigarettes Per Day: 10 Years Smoked: 22 Second Hand Smoke Exposure: No Substance Use Type: Marijuana service: No 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al status: unemployed and disabled 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 1. Little interest or pleasure in doing things: not at all 2. Feeling down, depressed, or hopeless: not at all 3. Trouble falling or staying asleep, or sleeping too much: not at all 4. Feeling tired or having little energy: not at all 5. Poor appetite or overeating: not at all 6. Feeling bad about yourself - or that you are a failure or have let yourself or your family down: not at all 7. Trouble concentrating on things, such as reading the newspaper or watching television: not at all 8. Moving or speaking so slowly that other people could have noticed. Or the opposite - being so fidgety or restless that you have been moving around a lot more than usual: not at all 9. Thoughts that you would be better off or of hurting yourself in some way: not at all Total score: 0 Source: Developed by Drs. Walter Flores, Caridad Worley, Evangelist Matt and colleagues, with an educational steven from [email or web address]. Thrive Questionnaire Date Thrive assessed: 01/02/21 I am a: Patient What is your living situation today?: I have a steady place to live Within the past 12 months, did the food you bought not last and you didn't have the money to get more?: Never true Within the past 12 months, did you worry whether your food would run out before you got money to buy more?: Never true Do you have trouble paying for medicines?: No Do you have trouble getting transportation to medical appointments?: No Do you have trouble paying your heating and electricity bill?: No Do you have trouble taking care of your child, family member or friend?: No Do you have trouble with day-to-day activities such as bathing, preparing meals, shopping, managing finances, etc.?: No Are you currently unemployed and looking for a job?: No Are you interested in more education?: No AUDIT C Alcohol Use Questionnaire (AUDIT-C) 1. How often do you have a drink containing alcohol?: Never 3. How often do you have six or more drinks on one occasion?: Never Total Score: 0 LILIA-7 AMB Questionnaire LILIA-7 Date LILIA - 7 assessed: 01/02/21 Feeling nervous, anxious, or on edge: 0 = Not at all Not being able to stop or control worryin = Not at all Worrying too much about different things: 0 = Not at all Trouble relaxin = Not at all Being so restless that it is hard to sit still: 0 = Not at all Becoming easily annoyed or irritable: 0 = Not at all Feeling afraid as if something awful might happen: 0 = Not at all Total LILIA-7 score (0-4 normal; 5-9 mild; 10-14 moderate; 15-21 severe): 0 Source: Developed by Drs. Walter Flores, Caridad Worley, Evangelist Matt and colleagues, with an educational steven from [email or web address]. Physical exam (Primary Care) Vital Signs: Last Vital Signs Temp 98.1 F 01/02/21 09:38 Pulse 84 01/02/21 09:38 BP 136/80 01/02/21 09:38 Pulse Ox 97 01/02/21 09:38 Oxygen Delivery Method Room Air 01/02/21 09:38 BMI result Body Mass Index 40.9 Tobacco/Smoking Status: Tobacco use Status Tobacco use date assessed 01/02/21 01/02/21 09:28 Patient Tobacco Use Status Current everyday Tobacco 01/02/21 09:28 Tobacco use type Cigarette 01/02/21 09:28 PHQ-9: Total score: 0 Results AMB Hemoglobin A1c AMB Hemoglobin A1c 5.9 % Last Edit by MENA Schulte on 01/02/21 09:51 Results Reviewed Results Reviewed: Laboratory Last Values Hgb A1c (Clinic) 5.9 % (4.0-6.0) 01/02/21 09:50 Coding Level of Care Code Admin Sign Off/No Billing Diagnoses Type 2 diabetes mellitus without complication, without long-term current use of insulin E11.9 Diabetes mellitus complication status: without complication Diabetes mellitus long chain quiller tender insulin use: without longterm use Diabetes mellitus type: type 2 Colitis K52.9
[2021-01-02 09:38] VITALS: BP 136/80; PULSE 84; TEMP 36.7; O2SAT 97; BMI 40.9
== END 2021-01-02 10:30 | disposition home or self-care (01) ==
LOC: HO.HMGH 09:20
PROVIDERS: PCP Internal Medicine; Visit Provider Internal Medicine
DX: E11.9 Type 2 diabetes mellitus without complications (principal); K52.9 Noninfective gastroenteritis and colitis, unspecified
CPT/HCPCS: 99499

== ENCOUNTER 2021-01-02 10:29 | Outpatient (REF) | payer MEDICARE, MEDICAID, SELFPAY ==
[2021-01-02 14:50] LABS: CDiff Gene PCR NEGATIVE (Negative)
== END 2021-01-02 10:30 | disposition home or self-care (01) ==
LOC: HO.LAB 10:29
PROVIDERS: PCP Internal Medicine; Visit Provider Internal Medicine
DX: K52.9 Noninfective gastroenteritis and colitis, unspecified (principal)
CPT/HCPCS: 36415; 87493

== ENCOUNTER → 2021-01-07 09:01 | Outpatient (BNVA) | payer MEDICARE, MEDICAID, SELFPAY | PROVIDERS: PCP Internal Medicine; Visit Provider Family Medicine Adult Medicine | DX: G56.02 Carpal tunnel syndrome, left upper limb (principal); M96.1 Postlaminectomy syndrome, not elsewhere classified; M25.561 Pain in right knee; M25.562 Pain in left knee | CPT/HCPCS: 99212 ==

== ENCOUNTER 2021-01-13 09:42 | Outpatient (REF) | payer MEDICARE, MEDICAID, SELFPAY ==
--- NOTE | ~2021-01-13 | XR_ITS ---
EXAMINATION: XR HAND, LEFT CLINICAL INFORMATION: Pain left hand COMPARISON: 02/06/2015 TECHNIQUE: PA, lateral, and oblique views of the left hand. FINDINGS: No evidence for an acute fracture or dislocation. Some scattered degenerative changes. Most significant in the 2nd DIP joint. Degeneration of the 1st digit is also seen. No acute bony erosion. No osteopenia. XR/XR hand LT min 3V IMPRESSION: Degenerative changes are noted here. No acute finding
== END 2021-01-13 09:43 | disposition home or self-care (01) ==
LOC: HO.HOSX 09:42
PROVIDERS: Visit Provider Orthopaedic Surgery
DX: M25.532 Pain in left wrist (principal); M79.642 Pain in left hand; R20.0 Anesthesia of skin; R20.2 Paresthesia of skin
CPT/HCPCS: 73130; 99202

== ENCOUNTER → 2021-02-07 10:52 | Outpatient (BNVA) | payer MEDICARE, MEDICAID, SELFPAY | PROVIDERS: PCP Internal Medicine; Visit Provider Nurse Practitioner Family | DX: M17.0 Bilateral primary osteoarthritis of knee (principal); M25.561 Pain in right knee; M25.562 Pain in left knee; G89.29 Other chronic pain | CPT/HCPCS: 99212 ==

== ENCOUNTER → 2021-02-18 13:25 | Outpatient (BNVA) | payer MEDICARE, MEDICAID, SELFPAY | PROVIDERS: PCP Internal Medicine; Visit Provider Dietitian, Registered | DX: E11.9 Type 2 diabetes mellitus without complications (principal); Z71.3 Dietary counseling and surveillance | CPT/HCPCS: 97802 ==

== ENCOUNTER → 2021-03-06 09:55 | Outpatient (BNVA) | payer MEDICARE, MEDICAID, SELFPAY | PROVIDERS: Visit Provider Family Medicine Adult Medicine | DX: Z51.81 Encounter for therapeutic drug level monitoring (principal); M96.1 Postlaminectomy syndrome, not elsewhere classified; M25.561 Pain in right knee; M25.562 Pain in left knee; G89.29 Other chronic pain; G56.02 Carpal tunnel syndrome, left upper limb | CPT/HCPCS: 99212 ==

== ENCOUNTER → 2021-04-03 08:52 | Outpatient (BNVA) | payer MEDICARE, MEDICAID, SELFPAY | PROVIDERS: Visit Provider Family Medicine Adult Medicine | DX: M96.1 Postlaminectomy syndrome, not elsewhere classified (principal); M25.561 Pain in right knee; M25.562 Pain in left knee; G89.29 Other chronic pain; G56.02 Carpal tunnel syndrome, left upper limb | CPT/HCPCS: 99212 ==

== ENCOUNTER → 2021-04-24 13:53 | Outpatient (BNVA) | payer MEDICARE, MEDICAID, SELFPAY | PROVIDERS: PCP Internal Medicine; Visit Provider Family Medicine Adult Medicine | DX: Z51.81 Encounter for therapeutic drug level monitoring (principal); M96.1 Postlaminectomy syndrome, not elsewhere classified; M25.561 Pain in right knee; M25.562 Pain in left knee; G89.29 Other chronic pain | CPT/HCPCS: 99212 ==

== ENCOUNTER → 2021-05-21 11:06 | Outpatient (BNVA) | payer MEDICARE, MEDICAID, SELFPAY | PROVIDERS: PCP Internal Medicine; Visit Provider Orthopaedic Surgery | DX: G56.23 Lesion of ulnar nerve, bilateral upper limbs (principal); G56.02 Carpal tunnel syndrome, left upper limb | CPT/HCPCS: 99212 ==

== ENCOUNTER → 2021-05-28 11:14 | Outpatient (BNVA) | payer MEDICARE, MEDICAID, SELFPAY | PROVIDERS: PCP Internal Medicine; Visit Provider Anesthesiology | DX: Z51.81 Encounter for therapeutic drug level monitoring (principal); F11.20 Opioid dependence, uncomplicated; M17.0 Bilateral primary osteoarthritis of knee; M25.561 Pain in right knee; M25.562 Pain in left knee; G89.29 Other chronic pain | CPT/HCPCS: 99212 ==

== ENCOUNTER → 2021-06-09 09:26 | Outpatient (BNVA) | payer MEDICARE, MEDICAID, SELFPAY | PROVIDERS: PCP Internal Medicine; Visit Provider Anesthesiology | CPT/HCPCS: 99211; Q3014 ==

== ENCOUNTER 2021-06-12 07:27 | Day surgery (SDC) | payer MEDICARE, MEDICAID, SELFPAY ==
--- NOTE | 2021-06-11 10:01 | HO.ANESPROP2 ---
Documented by User: Toshia Samaniego NP 06/11/21 10:03 HPI - Anesthesia Eval Consult details Narrative: 56yo F for Left Cubital Tunnel Release vs transposition and carpal tunnel release *Multiple Med Allergies (Including NSAIDs)* Chronic opiods PMFSH Active Problems Active Problems: All Active Problems (Updated 05/21/21 @ 12:33 by Rafia Moon MD) Cubital tunnel syndrome on right (Acute) Carpal tunnel syndrome of left wrist (Acute) Cubital tunnel syndrome on left (Acute) Numbness and tingling in left hand (Acute) Left hand pain (Acute) Weight loss (Acute) Colitis (Acute) Carpal tunnel syndrome of left wrist (Acute) Left wrist pain (Acute) Encounter for Medicare annual wellness exam (Acute) Bilateral primary osteoarthritis of knee (Acute) Bilateral knee pain (Acute) Failed back syndrome, lumbar (Acute) Intertrigo (Acute) Knee pain, bilateral (Acute) GERD without esophagitis (Acute) Pure hypercholesterolemia (Acute) Degenerative joint disease of left knee (Acute) Morbid obesity with BMI of 40.0-44.9, adult (Acute) Smoker (Acute) Depression (Acute) Anxiety (Acute) Benign essential hypertension (Acute) Diabetes mellitus (Acute) Lumbar degenerative disc disease (Acute) Past Medical History Medical History Anxiety Benign essential hypertension Bilateral knee pain Carpal tunnel syndrome of left wrist Cervical cancer DDD (degenerative disc disease), lumbosacral Degenerative joint disease of left knee Depression Diabetes mellitus Failed back syndrome, lumbar Fatty liver GERD without esophagitis History of renal stone Hx of concussion Knee pain, bilateral Left wrist pain Lumbar degenerative disc disease Morbid obesity with BMI of 40.0-44.9, adult Pure hypercholesterolemia Smoker Tibia fracture Weight loss Family History Family History Father Alzheimer disease Mouth cancer Mother Cancer Medical history unknown Sister No problems noted. Brother No problems noted. Maternal Grandfather HTN (hypertension) Maternal Grandmother HTN (hypertension) Other Mental health problem Surgical History Surgical History History of carpal tunnel release History of lumbar surgery History of surgery (~1999) Hx of colonoscopy Hx of lithotripsy Previous back surgery Social History Social History Household Members: Children Household Members Other:: 2 daughters Housing: Apartment Do you presently have visiting nurse or other home services: Yes Alcohol intake: never Patient Tobacco Use Status: Current everyday Tobacco user Tobacco use type: Cigarette Cigarettes Per Day: 10 Years Smoked: 20 Use of substances other than those prescribed or required for medical reasons: No Are you DNR?: No Advance Directives: No Advance Directives Information Provided: Yes service: No 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al status: unemployed and disabled 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 Med Allergies Allergy/AdvReac Type Severity Reaction Status Date / Time doxycycline [DOXYCYCLINE] Allergy Severe PALPITATIONS, Verified 06/12/21 09:02 anaphylaxis ibuprofen [IBUPROFEN] Allergy Severe HIVES Verified 06/12/21 09:02 NSAIDS (Non-Steroidal Allergy Severe HIVES Verified 06/12/21 09:02 Anti-Inflamma [NSAIDS (NON-STEROIDAL ANTI-INFLAMMA] cefaclor [From CECLOR] Allergy Intermediate RASH Verified 06/12/21 09:02 acetaminophen [Tylenol] AdvReac Intermediate n/v Verified 06/12/21 09:02 cephalexin [From KEFLEX] AdvReac Intermediate GI UPSET Verified 06/12/21 09:02 codeine [CODEINE] AdvReac Intermediate N/V Verified 06/12/21 09:02 gabapentin [GABAPENTIN] AdvReac Intermediate NAUSEA/VOMI Verified 06/12/21 09:02 TING tolterodine [From DETROL] AdvReac Intermediate PALPITATION Verified 06/12/21 09:02 S Exam Exam Date and Time: June 11, 2021 1001 Pertinent Lab Results Pertinent Lab Results: Laboratory Tests 12/26/20 12/28/20 09:30 09:11 WBC 10.6 Hgb 9.8 L Hct 30.1 L Plt Count 172 Sodium 139 Potassium 3.6 Chloride 108 Carbon Dioxide 24 BUN 11 Creatinine 0.78 Assessment and Plan Assessment Anesthesia Assessment: Chart Reviewed Documented by User: Kathryn Vang MD 06/12/21 09:22 [facility] Past Medical History Medical History Anxiety Benign essential hypertension Bilateral knee pain Carpal tunnel syndrome of left wrist Cervical cancer DDD (degenerative disc disease), lumbosacral Degenerative joint disease of left knee Depression Diabetes mellitus Failed back syndrome, lumbar Fatty liver GERD without esophagitis History of renal stone Hx of concussion Knee pain, bilateral Left wrist pain Lumbar degenerative disc disease Morbid obesity with BMI of 40.0-44.9, adult Pure hypercholesterolemia Smoker Tibia fracture Weight loss Functional capacity: independent ambulation Patient : No Family History Family History Father Alzheimer disease Mouth cancer Mother Cancer Medical history unknown Sister No problems noted. Brother No problems noted. Maternal Grandfather HTN (hypertension) Maternal Grandmother HTN (hypertension) Other Mental health problem Surgical History Surgical History History of carpal tunnel release History of lumbar surgery History of surgery (~1999) Hx of colonoscopy Hx of lithotripsy Previous back surgery History of Problems with Anesthesia: No Social History Social History Household Members: Children Household Members Other:: 2 daughters Housing: Apartment Do you presently have visiting nurse or other home services: Yes Alcohol intake: never Patient Tobacco Use Status: Current everyday Tobacco user Tobacco use type: Cigarette Cigarettes Per Day: 10 Years Smoked: 20 Use of substances other than those prescribed or required for medical reasons: No Are you DNR?: No Advance Directives: No Advance Directives Information Provided: Yes service: No 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al status: unemployed and disabled 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 Meds Allergies Allergy/AdvReac Type Severity Reaction Status Date / Time doxycycline [DOXYCYCLINE] Allergy Severe PALPITATIONS, Verified 06/12/21 09:02 anaphylaxis ibuprofen [IBUPROFEN] Allergy Severe HIVES Verified 06/12/21 09:02 NSAIDS (Non-Steroidal Allergy Severe HIVES Verified 06/12/21 09:02 Anti-Inflamma [NSAIDS (NON-STEROIDAL ANTI-INFLAMMA] cefaclor [From CECLOR] Allergy Intermediate RASH Verified 06/12/21 09:02 acetaminophen [Tylenol] AdvReac Intermediate n/v Verified 06/12/21 09:02 cephalexin [From KEFLEX] AdvReac Intermediate GI UPSET Verified 06/12/21 09:02 codeine [CODEINE] AdvReac Intermediate N/V Verified 06/12/21 09:02 gabapentin [GABAPENTIN] AdvReac Intermediate NAUSEA/VOMI Verified 06/12/21 09:02 TING tolterodine [From DETROL] AdvReac Intermediate PALPITATION Verified 06/12/21 09:02 S Exam Airway Mallampati Class: III TM Dist: >3cm Neck ROM: Full Denture: Upper Heart: RRR Lungs: CTA Assessment and Plan Final Anesthetic Review History of Problems with Anesthesia: No ASA Class: III Final Preanesthetic Review: No Changes in Pt Med Stat, Meds/Allgs Chart Reviewed, Consent Obtained/Reviewed and Anes Risks/Benef Reviewed Patient Risk: Intermediate Procedure Risk: Low Anesthetic Plan Anesthetic Plan: GA Disposition: Standard PACU
[2021-06-12] VITALS (9 sets, daily range): BP systolic 100–117; BP diastolic 37–72; PULSE 62–68; RESP 16–18; TEMP 36.4–36.8; O2SAT 93–99; BMI 36.9
[2021-06-12] MEDS: Lactated Ringers 1,000 ML 100 ML IVCONT (09:09)
[2021-06-12 09:11] LABS: Glucose, Whole Blood 109 mg/dL (60-115)
--- NOTE | 2021-06-12 09:21 | MHC.SHP ---
Pre-Procedural Eval Section A Date of Service: 06/12/21 The patient is an INPATIENT: No Changes since office visit: No Cold of Flu in the past 2 weeks, No New Medical Problems, No Changes in Medication and No Patient answered all questions The History & Physical has been completed within 30 days and I have reviewed it.: Yes Section B Chief Complaint: carpal tunnel Allergies: Allergies Allergy/AdvReac Type Severity Reaction Status Date / Time doxycycline [DOXYCYCLINE] Allergy Severe PALPITATIONS, Verified 06/12/21 09:02 anaphylaxis ibuprofen [IBUPROFEN] Allergy Severe HIVES Verified 06/12/21 09:02 NSAIDS (Non-Steroidal Allergy Severe HIVES Verified 06/12/21 09:02 Anti-Inflamma [NSAIDS (NON-STEROIDAL ANTI-INFLAMMA] cefaclor [From CECLOR] Allergy Intermediate RASH Verified 06/12/21 09:02 acetaminophen [Tylenol] AdvReac Intermediate n/v Verified 06/12/21 09:02 cephalexin [From KEFLEX] AdvReac Intermediate GI UPSET Verified 06/12/21 09:02 codeine [CODEINE] AdvReac Intermediate N/V Verified 06/12/21 09:02 gabapentin [GABAPENTIN] AdvReac Intermediate NAUSEA/VOMI Verified 06/12/21 09:02 TING tolterodine [From DETROL] AdvReac Intermediate PALPITATION Verified 06/12/21 09:02 S Plan I have reviewed the history and physical and performed a pertinent physical examination on my patient. No changes have occurred unless specified.
--- NOTE | 2021-06-12 09:21 | W.PM.OPN ---
Operative Note Operative Note Date of Service: 06/12/21 Narrative: Operative Note Narrative: Preop diagnosis: 1. left Cubital tunnel syndrome 2. Recurrent left carpal tunnel syndrome Postop diagnosis: Same Procedure: 1. left Cubital Tunnel Release 2. Left carpal tunnel release Surgeon: Rafia Moon MD Anesthesia: General Findings: Thickening and fibrosis about the ulnar nerve at the cubital tunnel Implants: none Tourniquet time: 21 minutes EBL: 5.0 ml Specimen: none Drains: None Complications: None Disposition: Brought to the recovery room in stable condition Plan: Follow-up in 10-14 days for wound check, and suture removal Indications: The patient is 56 years old on a pain contract with left upper extremity pain unrelated to these issues, as well as left cubital tunnel syndrome and left carpal tunnel syndrome with dense numbness . The risks and benefits of operative treatment, including but not limited to risk of damage to blood vessels, nerves, tendons, infection, recurrence, persistent pain or numbness, incomplete resolution of preoperative symptoms, or need for further surgery were discussed with the patient and they wished to proceed with surgery. Procedure: Once consent was obtained patient was brought back to the operating suite and placed in the operating table in a supine position. Perioperative antibiotics and anesthesia was administered by the anesthesia team. The limb was prepped and draped in a standard surgical fashion, and a sterile tourniquet applied to the proximal aspect of the left upper extremity. The limb was elevated exsanguinated with Esmarch bandage and the tourniquet inflated to 250 mm of mercury for a total tourniquet time of 21 minutes. Once assured that we had a good block, a longitudinal incision was made centered over the left carpal tunnel and extending in a zig -zag to the distal forearm. The incision was made through the skin to the subcutaneous tissues using a #15 blade. Dissection was made down to the level of themedian nerve in the distal forearm. The soft tissues were then released over the median nerve in a proximal to distal direction under direct visualization with care being taken to protect the palmar cutaneous nerve. This was done using a #15 blade, then using tenotomy scissors under direct visualization. Care was taken to look for and protect the motor branch of the median nerve when seen in this area. Once satisfied with our carpal tunnel release the wound was irrigated with normal saline. A 6 cm gently curved but longitudinally oriented incision was made centered over the cubital tunnel of the left upper extremity. Incision was made through the skin to the subcutaneous tissues using a # 15 Blade. I then dissected down to the level of the medial epicondyle and the cubital tunnel using tenotomy scissors. Care was taken to protect the lateral antebrachial cutaneous nerve. The ulnar nerve was identified just posterior to the medial intermuscular septum. The ulnar nerve was released in a proximal to distal direction using tenotomy in iris scissors while directly visualizing and protecting the ulnar nerve. Thickening and fibrosis was appreciated about the ulnar nerve as it passed through the cubital tunnel. The ulnar nerve was assessed as I passed the elbow through full flexion and extension and was found to remain stable within its groove. At this point the tourniquet was deflated and hemostasis obtained with a brief period of local pressure and bipolar electrocautery. The wounds were copiously irrigated with normal saline. The subcutaneous layer was closed with 4-0 Vicryl suture, and the skin edges were reapproximated with 5-0 nylon suture. The wounds were infiltrated with some 0.25% plain Marcaine for postop pain control and sterile dressings and a posterior splint was applied. The patient appears to have tolerated the procedure well and with no complications. All digits were well vascularized conclusion of the case.
--- NOTE | 2021-06-12 09:24 | HO.ANESPROP2 ---
[facility] Active Problems Active Problems: All Active Problems (Updated 05/21/21 @ 12:33 by Rafia Moon MD) Cubital tunnel syndrome on right (Acute) Carpal tunnel syndrome of left wrist (Acute) Cubital tunnel syndrome on left (Acute) Numbness and tingling in left hand (Acute) Left hand pain (Acute) Weight loss (Acute) Colitis (Acute) Carpal tunnel syndrome of left wrist (Acute) Left wrist pain (Acute) Encounter for Medicare annual wellness exam (Acute) Bilateral primary osteoarthritis of knee (Acute) Bilateral knee pain (Acute) Failed back syndrome, lumbar (Acute) Intertrigo (Acute) Knee pain, bilateral (Acute) GERD without esophagitis (Acute) Pure hypercholesterolemia (Acute) Degenerative joint disease of left knee (Acute) Morbid obesity with BMI of 40.0-44.9, adult (Acute) Smoker (Acute) Depression (Acute) Anxiety (Acute) Benign essential hypertension (Acute) Diabetes mellitus (Acute) Lumbar degenerative disc disease (Acute) Past Medical History Medical History Anxiety Benign essential hypertension Bilateral knee pain Carpal tunnel syndrome of left wrist Cervical cancer DDD (degenerative disc disease), lumbosacral Degenerative joint disease of left knee Depression Diabetes mellitus Failed back syndrome, lumbar Fatty liver GERD without esophagitis History of renal stone Hx of concussion Knee pain, bilateral Left wrist pain Lumbar degenerative disc disease Morbid obesity with BMI of 40.0-44.9, adult Pure hypercholesterolemia Smoker Tibia fracture Weight loss Functional capacity: independent ambulation Family History Family History Father Alzheimer disease Mouth cancer Mother Cancer Medical history unknown Sister No problems noted. Brother No problems noted. Maternal Grandfather HTN (hypertension) Maternal Grandmother HTN (hypertension) Other Mental health problem Surgical History Surgical History History of carpal tunnel release History of lumbar surgery History of surgery (~1999) Hx of colonoscopy Hx of lithotripsy Previous back surgery History of Problems with Anesthesia: No Social History Social History Household Members: Children Household Members Other:: 2 daughters Housing: Apartment Do you presently have visiting nurse or other home services: Yes Alcohol intake: never Patient Tobacco Use Status: Current everyday Tobacco user Tobacco use type: Cigarette Cigarettes Per Day: 10 Years Smoked: 20 Use of substances other than those prescribed or required for medical reasons: No Are you DNR?: No Advance Directives: No Advance Directives Information Provided: Yes Patient : No service: No 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al status: unemployed and disabled 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 Med Allergies Allergy/AdvReac Type Severity Reaction Status Date / Time doxycycline [DOXYCYCLINE] Allergy Severe PALPITATIONS, Verified 06/12/21 09:02 anaphylaxis ibuprofen [IBUPROFEN] Allergy Severe HIVES Verified 06/12/21 09:02 NSAIDS (Non-Steroidal Allergy Severe HIVES Verified 06/12/21 09:02 Anti-Inflamma [NSAIDS (NON-STEROIDAL ANTI-INFLAMMA] cefaclor [From CECLOR] Allergy Intermediate RASH Verified 06/12/21 09:02 acetaminophen [Tylenol] AdvReac Intermediate n/v Verified 06/12/21 09:02 cephalexin [From KEFLEX] AdvReac Intermediate GI UPSET Verified 06/12/21 09:02 codeine [CODEINE] AdvReac Intermediate N/V Verified 06/12/21 09:02 gabapentin [GABAPENTIN] AdvReac Intermediate NAUSEA/VOMI Verified 06/12/21 09:02 TING tolterodine [From DETROL] AdvReac Intermediate PALPITATION Verified 06/12/21 09:02 S Active Medications: Current Medications Albuterol Sulfate (Albuterol Sulfate (0.083%) 2.5 Mg/3 Ml Vial.Neb) 2.5 mg INHALE ONCE PRN PRN Reason: Shortness of Breath/Wheezing Lactated Ringer's (Lr) 1,000 mls @ 100 mls/hr IVCONT .Q10H CINDY Last Admin: 06/12/21 09:09 Dose: 100 mls/hr Documented by: Clindamycin Phosphate (Cleocin) 900 mg in 50 mls @ 50 mls/hr IV PREOP ONE Stop: 06/12/21 10:18 Exam Exam Date and Time: June 12, 2021 0924 Height,Weight and Vital Signs: Height 5 ft 6 in Weight 103.873 kg Last Vital Signs Temp 98.3 F 06/12/21 08:43 Pulse 67 06/12/21 08:43 Resp 18 06/12/21 08:43 BP 117/72 06/12/21 08:43 Pulse Ox 98 06/12/21 08:43 Pertinent Lab Results Pertinent Lab Results: Laboratory Tests 06/12/21 09:06 POC Glucose 109 Airway Mallampati Class: III TM Dist: >3cm Neck ROM: Full Denture: Upper Heart: RRR Lungs: CTA Assessment and Plan Final Anesthetic Review History of Problems with Anesthesia: No NPO: Yes ASA Class: III Final Preanesthetic Review: No Changes in Pt Med Stat, Meds/Allgs Chart Reviewed, Consent Obtained/Reviewed and Anes Risks/Benef Reviewed Patient Risk: Intermediate Procedure Risk: Low Anesthetic Plan Anesthetic Plan: GA Disposition: Standard PACU
--- NOTE | 2021-06-12 12:15 | PC.NURSE ---
taking sips po fluid. no nausea
[2021-06-12] MEDS: oxyCODONE HCl Immed Release 5 MG TABLET 10 MG PO (13:07)
--- NOTE | 2021-06-12 13:28 | HO.POSTANES ---
Post Anesthesia Evaluation Post Anesthesia Evaluation Vital Signs: Vital Signs Temp Pulse Resp BP Pulse Ox 06/12/21 13:00 67 18 105/52 L 99 06/12/21 12:05 68 18 103/37 L 97 06/12/21 11:50 62 16 106/51 L 94 06/12/21 11:35 67 16 100/52 L 93 06/12/21 11:19 63 16 101/50 L 93 06/12/21 11:15 63 16 103/49 L 93 06/12/21 11:10 64 16 105/51 L 93 06/12/21 11:05 97.6 F 68 16 102/62 95 06/12/21 08:43 98.3 F 67 18 117/72 98 Anesthesia: General LMA Mental Status: Awake Pain Control: Satisfactory Nausea/Vomiting: None Hydration: Adequate Anesthesia-Related Issues: No Anes. Related Issues
== END 2021-06-12 13:57 | disposition home or self-care (01) ==
PROVIDERS: Visit Provider Orthopaedic Surgery
PROC: (CPT 64718; principal; 2021-06-12 08:40)
DX: G56.02 Carpal tunnel syndrome, left upper limb (principal); G56.22 Lesion of ulnar nerve, left upper limb; G89.4 Chronic pain syndrome; G58.8 Other specified mononeuropathies; M79.642 Pain in left hand; M25.522 Pain in left elbow; I10 Essential (primary) hypertension; E66.01 Morbid (severe) obesity due to excess calories; Z68.38 Body mass index [BMI] 38.0-38.9, adult; E11.9 Type 2 diabetes mellitus without complications; Z79.84 Long term (current) use of oral hypoglycemic drugs; Z79.899 Other long term (current) drug therapy; Z88.1 Allergy status to other antibiotic agents; Z88.8 Allergy status to other drugs, medicaments and biological substances; F17.210 Nicotine dependence, cigarettes, uncomplicated
CPT/HCPCS: 64718; 64721; 82947; J0131; J1100; J2250; J2405; J3010

== ENCOUNTER → 2021-06-25 12:46 | Outpatient (BNVA) | payer MEDICARE, MEDICAID, SELFPAY | PROVIDERS: Visit Provider Orthopaedic Surgery | DX: Z09 Encounter for follow-up examination after completed treatment for conditions other than malignant neoplasm (principal); Z86.69 Personal history of other diseases of the nervous system and sense organs | CPT/HCPCS: 99212 ==

== ENCOUNTER → 2021-07-14 09:50 | Outpatient (BNVA) | payer MEDICARE, MEDICAID, SELFPAY | PROVIDERS: Visit Provider Anesthesiology | DX: Z51.81 Encounter for therapeutic drug level monitoring (principal); F11.20 Opioid dependence, uncomplicated | CPT/HCPCS: 99212 ==

== ENCOUNTER → 2021-08-12 09:53 | Outpatient (BNVA) | payer MEDICARE, MEDICAID, SELFPAY | PROVIDERS: PCP Pediatrics; Visit Provider Nurse Practitioner Family | DX: Z51.81 Encounter for therapeutic drug level monitoring (principal); F11.20 Opioid dependence, uncomplicated; M17.0 Bilateral primary osteoarthritis of knee; M25.561 Pain in right knee; M25.562 Pain in left knee; M96.1 Postlaminectomy syndrome, not elsewhere classified; G89.29 Other chronic pain | CPT/HCPCS: 99212 ==

== ENCOUNTER → 2021-08-13 10:30 | Outpatient (BNVA) | payer MEDICARE, MEDICAID, SELFPAY | PROVIDERS: Visit Provider Orthopaedic Surgery | DX: G56.01 Carpal tunnel syndrome, right upper limb (principal); G56.21 Lesion of ulnar nerve, right upper limb; Z87.39 Personal history of other diseases of the musculoskeletal system and connective tissue | CPT/HCPCS: 99212 ==

== ENCOUNTER 2021-09-01 05:52 | Day surgery (SDC) | payer MEDICARE, MEDICAID, SELFPAY ==
[2021-08-26 11:40] VITALS: BMI 37.9
--- NOTE | 2021-08-28 14:19 | HO.ANESPROP2 ---
Documented by User: Toshia Samaniego NP 08/28/21 14:20 HPI - Anesthesia Eval Consult details Narrative: 56yo F for Right Cubital Tunnel Release vs transposition and carpal tunnel release *Multiple Med Allergies (Including NSAIDs)* Chronic opiods Right side done 06/2021 with GA-LMA 4 PMFSH Active Problems Active Problems: All Active Problems (Updated 08/13/21 @ 11:11 by Rafia Moon MD) Intertrigo (Acute) Bilateral primary osteoarthritis of knee (Acute) Encounter for Medicare annual wellness exam (Acute) Colitis (Acute) Left hand pain (Acute) Numbness and tingling in left hand (Acute) Cubital tunnel syndrome on left (Acute) Carpal tunnel syndrome of left wrist (Acute) Cubital tunnel syndrome on right (Acute) Numbness of right hand (Acute) Carpal tunnel syndrome of right wrist (Acute) Weight loss (Acute) Carpal tunnel syndrome of left wrist (Acute) Left wrist pain (Acute) Bilateral knee pain (Acute) Failed back syndrome, lumbar (Acute) Knee pain, bilateral (Acute) GERD without esophagitis (Acute) Pure hypercholesterolemia (Acute) Degenerative joint disease of left knee (Acute) Morbid obesity with BMI of 40.0-44.9, adult (Acute) Smoker (Acute) Depression (Acute) Anxiety (Acute) Benign essential hypertension (Acute) Diabetes mellitus (Acute) Lumbar degenerative disc disease (Acute) Past Medical History Medical History (Updated 08/13/21 @ 11:11 by Rafia Moon MD) Anxiety Benign essential hypertension Bilateral knee pain Carpal tunnel syndrome of left wrist Cervical cancer DDD (degenerative disc disease), lumbosacral Degenerative joint disease of left knee Depression Diabetes mellitus Failed back syndrome, lumbar Fatty liver GERD without esophagitis History of renal stone Hx of concussion Knee pain, bilateral Left wrist pain Lumbar degenerative disc disease Morbid obesity with BMI of 40.0-44.9, adult Pure hypercholesterolemia Smoker Tibia fracture Weight loss Family History Family History Father Alzheimer disease Mouth cancer Mother Cancer Medical history unknown Sister No problems noted. Brother No problems noted. Maternal Grandfather HTN (hypertension) Maternal Grandmother HTN (hypertension) Other Mental health problem Surgical History Surgical History (Updated 08/26/21 @ 11:33 by Sophie Mccall RN) History of carpal tunnel release History of carpal tunnel release History of lumbar surgery History of surgery (~1999) Hx of colonoscopy Hx of lithotripsy Previous back surgery History of Problems with Anesthesia: No Social History Social History Household Members: Children Household Members Other:: 2 daughters Housing: Apartment Do you presently have visiting nurse or other home services: Yes Alcohol intake: never Patient Tobacco Use Status: Current everyday Tobacco user Tobacco use type: Cigarette Cigarettes Per Day: 10 Years Smoked: 20 Advance Directives: No Advance Directives Information Provided: Yes Advance Directives on File: No service: No 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al status: unemployed and disabled 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 Med Allergies Allergy/AdvReac Type Severity Reaction Status Date / Time doxycycline [DOXYCYCLINE] Allergy Severe PALPITATIONS, Verified 08/12/21 10:01 anaphylaxis ibuprofen [IBUPROFEN] Allergy Severe HIVES Verified 08/12/21 10:01 NSAIDS (Non-Steroidal Allergy Severe HIVES Verified 08/12/21 10:01 Anti-Inflamma [NSAIDS (NON-STEROIDAL ANTI-INFLAMMA] cefaclor [From CECLOR] Allergy Intermediate RASH Verified 08/12/21 10:01 acetaminophen [Tylenol] AdvReac Intermediate n/v Verified 08/12/21 10:01 cephalexin [From KEFLEX] AdvReac Intermediate GI UPSET Verified 08/12/21 10:01 codeine [CODEINE] AdvReac Intermediate N/V Verified 08/12/21 10:01 gabapentin [GABAPENTIN] AdvReac Intermediate NAUSEA/VOMI Verified 08/12/21 10:01 TING tolterodine [From DETROL] AdvReac Intermediate PALPITATION Verified 08/12/21 10:01 S Active Medications: Current Medications Cefazolin Sodium/Dextrose (Ancef) 2 gm in 50 mls @ 100 mls/hr IV PREOP ONE Stop: 08/28/21 13:59 Home Medications Medication Instructions Recorded Confirmed Last Taken Type metformin 500 mg tablet,extended 100 mg PO BID tab 08/12/21 08/26/21 Unknown History release 24 hr Exam Exam Date and Time: August 28, 2021 1419 Height,Weight and Vital Signs: Height 5 ft 6 in Weight 106.594 kg Assessment and Plan Assessment Anesthesia Assessment: Chart Reviewed Final Anesthetic Review History of Problems with Anesthesia: No Documented by User: George Vang MD 09/01/21 07:23 [facility] Past Medical History Medical History (Updated 08/13/21 @ 11:11 by Rafia Moon MD) Anxiety Benign essential hypertension Bilateral knee pain Carpal tunnel syndrome of left wrist Cervical cancer DDD (degenerative disc disease), lumbosacral Degenerative joint disease of left knee Depression Diabetes mellitus Failed back syndrome, lumbar Fatty liver GERD without esophagitis History of renal stone Hx of concussion Knee pain, bilateral Left wrist pain Lumbar degenerative disc disease Morbid obesity with BMI of 40.0-44.9, adult Pure hypercholesterolemia Smoker Tibia fracture Weight loss Family History Family History Father Alzheimer disease Mouth cancer Mother Cancer Medical history unknown Sister No problems noted. Brother No problems noted. Maternal Grandfather HTN (hypertension) Maternal Grandmother HTN (hypertension) Other Mental health problem Family history of problems with anesthesia: No Surgical History Surgical History (Updated 08/26/21 @ 11:33 by Sophie Mccall RN) History of carpal tunnel release History of carpal tunnel release History of lumbar surgery History of surgery (~2000) Hx of colonoscopy Hx of lithotripsy Previous back surgery Social History Social History Household Members: Children Household Members Other:: 2 daughters Housing: Apartment Do you presently have visiting nurse or other home services: Yes Alcohol intake: never Patient Tobacco Use Status: Current everyday Tobacco user Tobacco use type: Cigarette Cigarettes Per Day: 10 Years Smoked: 20 Advance Directives: No Advance Directives Information Provided: Yes Advance Directives on File: No service: No 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al status: unemployed and disabled 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 Meds Allergies Allergy/AdvReac Type Severity Reaction Status Date / Time doxycycline [DOXYCYCLINE] Allergy Severe PALPITATIONS, Verified 08/12/21 10:01 anaphylaxis ibuprofen [IBUPROFEN] Allergy Severe HIVES Verified 08/12/21 10:01 NSAIDS (Non-Steroidal Allergy Severe HIVES Verified 08/12/21 10:01 Anti-Inflamma [NSAIDS (NON-STEROIDAL ANTI-INFLAMMA] cefaclor [From CECLOR] Allergy Intermediate RASH Verified 08/12/21 10:01 acetaminophen [Tylenol] AdvReac Intermediate n/v Verified 08/12/21 10:01 cephalexin [From KEFLEX] AdvReac Intermediate GI UPSET Verified 08/12/21 10:01 codeine [CODEINE] AdvReac Intermediate N/V Verified 08/12/21 10:01 gabapentin [GABAPENTIN] AdvReac Intermediate NAUSEA/VOMI Verified 08/12/21 10:01 TING tolterodine [From DETROL] AdvReac Intermediate PALPITATION Verified 08/12/21 10:01 S Home Medications Medication Instructions Recorded Confirmed Last Taken Type metformin 500 mg tablet,extended 100 mg PO BID tab 08/12/21 08/26/21 Unknown History release 24 hr Exam Airway Mallampati Class: III TM Dist: >3cm Neck ROM: Full Partial: Upper Assessment and Plan Assessment Anesthesia Assessment: Anesthesia Plan Discussed and Smoking Cess. Discussed Final Anesthetic Review Family History of Problems with Anesthesia: No NPO: Yes ASA Class: III Final Preanesthetic Review: No Changes in Pt Med Stat, Meds/Allgs Chart Reviewed, Consent Obtained/Reviewed and Anes Risks/Benef Reviewed Patient Risk: Intermediate Procedure Risk: Low Anesthetic Plan Anesthetic Plan: GA Disposition: Standard PACU
[2021-09-01] VITALS (11 sets, daily range): BP systolic 110–122; BP diastolic 59–79; PULSE 61–74; RESP 15–17; TEMP 36.2–36.8; O2SAT 94–99
[2021-09-01 07:02] LABS: Glucose, Whole Blood 115 mg/dL (60-115)
[2021-09-01] MEDS: Lactated Ringers 1,000 ML 100 ML IVCONT (07:02)
--- NOTE | 2021-09-01 08:06 | MHC.SHP ---
Pre-Procedural Eval Section A Date of Service: 09/01/21 The patient is an INPATIENT: No The History & Physical has been completed within 30 days and I have reviewed it.: Yes Section B Chief Complaint: carpal tunnel release,lesion of ulnar nerve Allergies: Allergies Allergy/AdvReac Type Severity Reaction Status Date / Time doxycycline [DOXYCYCLINE] Allergy Severe PALPITATIONS, Verified 08/12/21 10:01 anaphylaxis ibuprofen [IBUPROFEN] Allergy Severe HIVES Verified 08/12/21 10:01 NSAIDS (Non-Steroidal Allergy Severe HIVES Verified 08/12/21 10:01 Anti-Inflamma [NSAIDS (NON-STEROIDAL ANTI-INFLAMMA] cefaclor [From CECLOR] Allergy Intermediate RASH Verified 08/12/21 10:01 acetaminophen [Tylenol] AdvReac Intermediate n/v Verified 08/12/21 10:01 cephalexin [From KEFLEX] AdvReac Intermediate GI UPSET Verified 08/12/21 10:01 codeine [CODEINE] AdvReac Intermediate N/V Verified 08/12/21 10:01 gabapentin [GABAPENTIN] AdvReac Intermediate NAUSEA/VOMI Verified 08/12/21 10:01 TING tolterodine [From DETROL] AdvReac Intermediate PALPITATION Verified 08/12/21 10:01 S Plan I have reviewed the history and physical and performed a pertinent physical examination on my patient. No changes have occurred unless specified.
--- NOTE | 2021-09-01 08:06 | W.PM.OPN ---
Operative Note Operative Note Date of Service: 09/01/21 Narrative: Operative Note Narrative: Preop diagnosis: 1. Right Cubital tunnel syndrome 2. Right carpal tunnel syndrome Postop diagnosis: Same Procedure: 1. Right Cubital Tunnel Release 2. Right carpal tunnel release Surgeon: Rafia Moon MD Anesthesia: General Findings: Thickening and fibrosis about the ulnar nerve at the cubital tunnel, with an hourglass deformity at the distal aspect of the cubital tunnel. Implants: none Tourniquet time: 32 minutes EBL: 5.0 ml Specimen: none Drains: None Complications: None Disposition: Brought to the recovery room in stable condition Plan: Follow-up in 10-14 days for wound check, and suture removal Indications: The patient is 56 years old with right cubital tunnel syndrome and right carpal tunnel syndrome . The risks and benefits of operative treatment, including but not limited to risk of damage to blood vessels, nerves, tendons, infection, recurrence, persistent pain or numbness, incomplete resolution of preoperative symptoms, or need for further surgery were discussed with the patient and they wished to proceed with surgery. Procedure: Once consent was obtained patient was brought back to the operating suite and placed in the operating table in a supine position. Perioperative antibiotics and anesthesia was administered by the anesthesia team. The limb was prepped and draped in a standard surgical fashion, and a sterile tourniquet applied to the proximal aspect of the right upper extremity. The limb was elevated exsanguinated with Esmarch bandage and the tourniquet inflated to 250 mm of mercury for a total tourniquet time of 32 minutes. Once assured that we had a good block, a 1.5 cm longitudinal incision was made centered over the right carpal tunnel. The incision was made through the skin to the subcutaneous tissues using a #15 blade. Dissection was made down to the level of the transverse carpal ligament with care being taken to protect the palmar cutaneous nerve. Once the transverse carpal ligament was clearly visualized, a longitudinal incision was made in the transverse carpal ligament 1st using a #15 blade, then using tenotomy scissors under direct visualization. Care was taken to look for and protect the motor branch of the median nerve when seen in this area. Once satisfied with our carpal tunnel release the wound was irrigated with normal saline. A 6 cm gently curved but longitudinally oriented incision was made centered over the cubital tunnel of the right upper extremity. Incision was made through the skin to the subcutaneous tissues using a # 15 Blade. I then dissected down to the level of the medial epicondyle and the cubital tunnel using tenotomy scissors. Care was taken to protect the lateral antebrachial cutaneous nerve. The ulnar nerve was identified just posterior to the medial intermuscular septum. The ulnar nerve was released in a proximal to distal direction using tenotomy in iris scissors while directly visualizing and protecting the ulnar nerve. Thickening and fibrosis was appreciated about the ulnar nerve as it passed through the cubital tunnel. The ulnar nerve was assessed as I passed the elbow through full flexion and extension and was found to remain stable within its groove. At this point the tourniquet was deflated and hemostasis obtained with a brief period of local pressure and bipolar electrocautery. The wound was copiously irrigated with normal saline. The subcutaneous layer was closed with 4-0 Vicryl suture, and the skin edges were reapproximated with 5-0 nylon suture. The wound was infiltrated with some 0.25% plain Marcaine for postop pain control and sterile dressings and a posterior splint was applied. The patient appears to have tolerated the procedure well and with no complications. All digits were well vascularized conclusion of the case.
== END 2021-09-01 12:25 | disposition home or self-care (01) ==
PROVIDERS: Visit Provider Orthopaedic Surgery
PROC: (CPT 64718; principal; 2021-09-01 07:30)
PROC: (CPT 64721; 2021-09-01 07:30)
DX: G56.01 Carpal tunnel syndrome, right upper limb (principal); G56.21 Lesion of ulnar nerve, right upper limb; R20.2 Paresthesia of skin; F32.9 Major depressive disorder, single episode, unspecified; I10 Essential (primary) hypertension; E66.01 Morbid (severe) obesity due to excess calories; Z68.37 Body mass index [BMI] 37.0-37.9, adult; E11.9 Type 2 diabetes mellitus without complications; Z79.84 Long term (current) use of oral hypoglycemic drugs; Z79.899 Other long term (current) drug therapy; Z88.1 Allergy status to other antibiotic agents; Z88.8 Allergy status to other drugs, medicaments and biological substances; F17.210 Nicotine dependence, cigarettes, uncomplicated
CPT/HCPCS: 64721; 64718; 82947; J0690; J1100; J2250; J2405; J3010

== ENCOUNTER → 2021-09-16 08:54 | Outpatient (BNVA) | payer MEDICARE, MEDICAID, SELFPAY | PROVIDERS: Visit Provider Orthopaedic Surgery | DX: Z47.89 Encounter for other orthopedic aftercare (principal); Z86.69 Personal history of other diseases of the nervous system and sense organs; Z51.81 Encounter for therapeutic drug level monitoring; F11.20 Opioid dependence, uncomplicated | CPT/HCPCS: 99211; 99212 ==

== ENCOUNTER → 2021-10-17 11:28 | Outpatient (BNVA) | payer MEDICARE, MEDICAID, SELFPAY | PROVIDERS: PCP Internal Medicine; Visit Provider Nurse Practitioner Family | DX: Z13.89 Encounter for screening for other disorder (principal) | CPT/HCPCS: 99211 ==

== ENCOUNTER → 2021-11-17 08:46 | Outpatient (BNVA) | payer MEDICARE, MEDICAID, SELFPAY | PROVIDERS: PCP Internal Medicine; Visit Provider Nurse Practitioner Family | DX: Z79.891 Long term (current) use of opiate analgesic (principal) | CPT/HCPCS: 99211 ==

== ENCOUNTER → 2021-12-16 09:26 | Outpatient (BNVA) | payer MEDICARE, MEDICAID, SELFPAY | PROVIDERS: PCP Internal Medicine; Visit Provider Nurse Practitioner Family | DX: Z51.81 Encounter for therapeutic drug level monitoring (principal); F11.20 Opioid dependence, uncomplicated | CPT/HCPCS: 99211 ==

== ENCOUNTER → 2022-01-13 09:24 | Outpatient (BNVA) | payer MEDICARE, MEDICAID, SELFPAY | PROVIDERS: PCP Internal Medicine; Visit Provider Nurse Practitioner Family | DX: Z51.81 Encounter for therapeutic drug level monitoring (principal); F11.20 Opioid dependence, uncomplicated; M17.0 Bilateral primary osteoarthritis of knee; M25.561 Pain in right knee; M25.562 Pain in left knee; G89.29 Other chronic pain; M96.1 Postlaminectomy syndrome, not elsewhere classified | CPT/HCPCS: 99212 ==

== ENCOUNTER → 2022-01-16 08:36 | Outpatient (BNVA) | payer MEDICARE, MEDICAID, SELFPAY | PROVIDERS: PCP Internal Medicine; Visit Provider Internal Medicine | DX: F11.90 Opioid use, unspecified, uncomplicated (principal); M17.0 Bilateral primary osteoarthritis of knee | CPT/HCPCS: 99212 ==

== ENCOUNTER → 2022-02-13 08:46 | Outpatient (BNVA) | payer MEDICARE, MEDICAID, SELFPAY | PROVIDERS: PCP Internal Medicine; Visit Provider Internal Medicine | DX: Z51.81 Encounter for therapeutic drug level monitoring (principal); F11.20 Opioid dependence, uncomplicated; M17.0 Bilateral primary osteoarthritis of knee | CPT/HCPCS: 99212 ==

== ENCOUNTER → 2022-03-20 09:28 | Outpatient (BNVA) | payer MEDICARE, MEDICAID, SELFPAY | PROVIDERS: PCP Internal Medicine; Visit Provider Nurse Practitioner Family | DX: M17.0 Bilateral primary osteoarthritis of knee (principal); G89.29 Other chronic pain; M96.1 Postlaminectomy syndrome, not elsewhere classified; F11.90 Opioid use, unspecified, uncomplicated | CPT/HCPCS: 99212 ==

== ENCOUNTER → 2022-04-16 09:35 | Outpatient (BNVA) | payer MEDICARE, MEDICAID, SELFPAY | PROVIDERS: PCP Internal Medicine; Visit Provider Nurse Practitioner Family | DX: Z51.81 Encounter for therapeutic drug level monitoring (principal); F11.20 Opioid dependence, uncomplicated | CPT/HCPCS: 99211 ==

== ENCOUNTER → 2022-05-11 09:34 | Outpatient (BNVA) | payer MEDICARE, MEDICAID, SELFPAY | PROVIDERS: PCP Internal Medicine; Visit Provider Nurse Practitioner Family | DX: Z51.81 Encounter for therapeutic drug level monitoring (principal); F11.20 Opioid dependence, uncomplicated; M17.0 Bilateral primary osteoarthritis of knee; M25.561 Pain in right knee; M25.562 Pain in left knee; M96.1 Postlaminectomy syndrome, not elsewhere classified; M51.36 Other intervertebral disc degeneration, lumbar region; M65.311 Trigger thumb, right thumb; G89.4 Chronic pain syndrome | CPT/HCPCS: 99212 ==

== ENCOUNTER → 2022-06-09 09:42 | Outpatient (BNVA) | payer MEDICARE, MEDICAID, SELFPAY | PROVIDERS: PCP Internal Medicine; Visit Provider Nurse Practitioner Family | DX: Z51.81 Encounter for therapeutic drug level monitoring (principal); F11.20 Opioid dependence, uncomplicated; M65.311 Trigger thumb, right thumb; M17.0 Bilateral primary osteoarthritis of knee; M96.1 Postlaminectomy syndrome, not elsewhere classified; M51.36 Other intervertebral disc degeneration, lumbar region; G89.4 Chronic pain syndrome | CPT/HCPCS: 99212 ==

== ENCOUNTER → 2022-07-09 09:54 | Outpatient (BNVA) | payer MEDICARE, MEDICAID, SELFPAY | PROVIDERS: PCP Internal Medicine; Visit Provider Nurse Practitioner Family | DX: Z51.81 Encounter for therapeutic drug level monitoring (principal); F11.20 Opioid dependence, uncomplicated; M17.0 Bilateral primary osteoarthritis of knee; M96.1 Postlaminectomy syndrome, not elsewhere classified; M51.36 Other intervertebral disc degeneration, lumbar region; G89.4 Chronic pain syndrome; Z98.890 Other specified postprocedural states | CPT/HCPCS: 99212 ==

== ENCOUNTER 2022-07-23 11:28 | Inpatient (IN) | payer MEDICARE, MEDICAID, SELFPAY ==
--- NOTE | ~2022-07-23 | XR_ITS ---
EXAMINATION: XR CHEST CLINICAL INFORMATION: Nausea and vomiting COMPARISON: 12/26/2020 TECHNIQUE: 2 views of the chest were obtained. FINDINGS: No focal consolidation, pulmonary edema, or pleural effusion. Stable cardiomediastinal silhouette. XR/XR chest 2V IMPRESSION: No acute cardiopulmonary findings.
--- NOTE | ~2022-07-23 | CT_ITS ---
EXAMINATION: CT ABDOMEN AND PELVIS WITH CONTRAST CLINICAL INFORMATION: Dark stool COMPARISON: CT abdomen pelvis 12/25/2020 TECHNIQUE: Multidetector volumetric images were obtained from the superior aspect of the liver through the pubic symphysis following administration 85 mL of Omnipaque 350 intravenous contrast. Sagittal and coronal reformatted images were obtained on the technologist's workstation. Oral contrast: No This CT examination was performed using dose optimization techniques as appropriate, variously including the following: *Automated exposure control *Adjustment of mA and/or kV according to patient size (this includes techniques or standardized protocols for targeted exams where dose is matched to indication/reason for exam; i.e. extremities or head) *Use of iterative reconstruction technique DLP: 1010 mGy-cm FINDINGS: LUNG BASES: Unremarkable. ABDOMINAL AND PELVIC WALL: Unremarkable. LIVER AND BILIARY TREE: The dome of the liver was excluded from the [id number] somewhat limiting evaluation. GALLBLADDER: Unremarkable. PANCREAS: Unremarkable. SPLEEN: Unremarkable. ADRENAL GLANDS: Unremarkable. KIDNEYS AND URETERS: Punctate nonobstructing left lower pole renal stone. Bilateral renal hypodensities too small to characterize. Left kidney is asymmetrically atrophic. GASTROINTESTINAL TRACT: Marked wall edema involving the transverse, descending and sigmoid colon with infiltration of the pericolonic fat. No pneumatosis or portal venous gas. No loss of bowel wall enhancement. Normal appendix. VASCULAR: Mesenteric vessels appear grossly patent. LYMPH NODES/PERITONEUM: No lymphadenopathy. FREE FLUID: None. BLADDER: Unremarkable. PELVIC VISCERA: Status post hysterectomy. OSSEOUS STRUCTURES: Postsurgical changes of lumbar spinal fusion at L3-L4 with L3-L4, L4-L5 and L5-S1 interbody disc spacers. No osseous fusion across the vertebral bodies. CT/CT abdomen pelvis w IV con IMPRESSION: Marked wall edema involving the transverse, descending and sigmoid colon with infiltration of the pericolonic fat, suggestive of colitis which may be infectious/inflammatory, with ischemic not excluded however there is no pneumatosis or portal venous gas, and no loss of bowel wall enhancement to favor ischemia. Mesenteric vessels appear grossly patent. Punctate nonobstructing left renal stone. Left kidney is asymmetrically atrophic.
[2022-07-23 11:35] VITALS: BP 150/98; PULSE 74; O2SAT 97
[2022-07-23 12:23] VITALS: BP 121/80; PULSE 99; RESP 20; TEMP 37.2; O2SAT 97; BMI 44.2
--- NOTE | 2022-07-23 12:23 | ED_ITS ---
HPI - Abdominal Pain General Chief Complaint: Abdominal Pain <MURTAZA Brooks - Last Filed: 07/23/22 12:29> Stated Complaint: NAUSEA,ABD PAIN SINCE LAST NIGHT PER EMS <MURTAZA Brooks - Last Filed: 07/23/22 12:29> Time Seen by Provider: 07/23/22 15:30 <MURTAZA Brooks - Last Filed: 07/23/22 12:29> Source: patient <Ever Irving MD - Last Filed: 07/23/22 20:05> Mode of arrival: EMS <Ever Irving MD - Last Filed: 07/23/22 20:05> Limitations: no limitations <Ever Irving MD - Last Filed: 07/23/22 20:05> History of Present Illness HPI narrative: Had pain in her stomach last night. The pain was epigstric. Patient had diarrhea and vomiting. patient has a history of ulcerative colitis. <Ever Irving MD - Last Filed: 07/23/22 20:05> MD elicited complaint: abdominal pain <Ever Irving MD - Last Filed: 07/23/22 20:05> Onset (ago): hour(s) <Ever Irving MD - Last Filed: 07/23/22 20:05> Pain Consistency: intermittent <Ever Irving MD - Last Filed: 07/23/22 20:05> Location: diffuse <Ever Irving MD - Last Filed: 07/23/22 20:05> Severity: mild <Ever Irving MD - Last Filed: 07/23/22 20:05> Quality: cramping <Ever Irving MD - Last Filed: 07/23/22 20:05> Associated symptoms: nausea, vomiting and diarrhea <Ever Irving MD - Last Filed: 07/23/22 20:05> Related Data Home Medications: Home Medications Medication Instructions Recorded Confirmed metformin 500 mg tablet,extended 100 mg PO BID 08/12/21 04/16/22 release 24 hr Previous Rx's Medication Instructions Recorded pregabalin 300 mg capsule 300 mg PO BID 30 days #60 caps 06/12/20 pantoprazole 40 mg tablet,delayed 40 mg PO DAILY #90 caps 09/29/20 release atorvastatin 10 mg tablet 10 mg PO DAILY 90 days #90 tabs 11/28/20 lisinopril 40 mg tablet 40 mg PO DAILY 90 days #90 tabs 11/29/20 amlodipine 5 mg tablet 5 mg PO DAILY #30 tabs 12/27/20 clonazepam 2 mg tablet (Klonopin) 2 mg PO TID PRN anxiety 30 days 02/12/21 #90 tabs naloxone 4 mg/actuation nasal 4 mg intranasal Q2M PRN opioid 11/17/21 spray (Narcan) overdose 1 day #2 ea Shower Chair #1 ea 03/20/22 oxycodone 10 mg tablet,crush 10 mg PO BID pain 30 days #60 tabs 07/09/22 resistant,extended release 12 hr (OxyContin) oxycodone-acetaminophen 5 mg-325 1 tab PO QID PRN severe pain 07/09/22 mg tablet (scale score 7-10) 30 days #120 tabs <MURTAZA Brooks - Last Filed: 07/23/22 12:29> Allergies/Adverse Reactions: Allergies Allergy/AdvReac Type Severity Reaction Status Date / Time doxycycline [DOXYCYCLINE] Allergy Severe PALPITATIONS, Verified 07/09/22 10:13 anaphylaxis ibuprofen [IBUPROFEN] Allergy Severe HIVES Verified 07/09/22 10:13 NSAIDS (Non-Steroidal Allergy Severe HIVES Verified 07/09/22 10:13 Anti-Inflamma [NSAIDS (NON-STEROIDAL ANTI-INFLAMMA] cefaclor [From CECLOR] Allergy Intermediate RASH Verified 07/09/22 10:13 acetaminophen [Tylenol] AdvReac Intermediate n/v Verified 07/09/22 10:13 cephalexin [From KEFLEX] AdvReac Intermediate GI UPSET Verified 07/09/22 10:13 codeine [CODEINE] AdvReac Intermediate N/V Verified 07/09/22 10:13 gabapentin [GABAPENTIN] AdvReac Intermediate NAUSEA/VOMI Verified 07/09/22 10:13 TING tolterodine [From DETROL] AdvReac Intermediate PALPITATION Verified 07/09/22 10:13 S <MURTAZA Brooks - Last Filed: 07/23/22 12:29> Review of Systems Review of Systems Yes all other systems are reviewed and are negative <Ever Irving MD - Last Filed: 07/23/22 20:05> Gastrointestinal: Reports diarrhea, Reports nausea and Reports vomiting <Ever Irving MD - Last Filed: 07/23/22 20:05> [facility] Past Medical History Medical History: Medical History Anxiety Benign essential hypertension Bilateral knee pain Carpal tunnel syndrome of left wrist Cervical cancer DDD (degenerative disc disease), lumbosacral Degenerative joint disease of left knee Depression Diabetes mellitus Failed back syndrome, lumbar Fatty liver GERD without esophagitis History of renal stone Hx of concussion Knee pain, bilateral Left wrist pain Lumbar degenerative disc disease Morbid obesity with BMI of 40.0-44.9, adult Pure hypercholesterolemia Smoker Tibia fracture Weight loss <MURTAZA Brooks - Last Filed: 07/23/22 12:29> Surgical History: Surgical History History of carpal tunnel release History of carpal tunnel release History of lumbar surgery History of surgery (~1999) Hx of colonoscopy Hx of lithotripsy Previous back surgery <MURTAZA Brooks - Last Filed: 07/23/22 12:29> Family History Family History: Family History Father Alzheimer disease Mouth cancer Mother Cancer Medical history unknown Sister No problems noted. Brother No problems noted. Maternal Grandfather HTN (hypertension) Maternal Grandmother HTN (hypertension) Other Mental health problem <MURTAZA Brooks - Last Filed: 07/23/22 12:29> Social History Social History: Social History Household Members: Children Household Members Other:: 2 daughters Housing: Apartment Do you presently have visiting nurse or other home services: Yes Alcohol intake: never Patient Tobacco Use Status: Current everyday Tobacco user Tobacco use type: Cigarette Cigarettes Per Day: 10 Years Smoked: 20 Advance Directives: No Advance Directives Information Provided: No service: No 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al status: unemployed and disabled 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 worked as a [employer] disabled approx 2012 <MURTAZA Brooks - Last Filed: 07/23/22 12:29> Physical Exam ED Vital Signs: Vital Signs - 24 hr 07/23/22 12:23 07/23/22 15:25 Temperature 99.0 F 99.8 F Pulse Rate 99 94 Respiratory Rate 20 20 Blood Pressure 121/80 116/86 Pulse Oximetry 97 95 Oxygen Delivery Method Room Air Room Air BMI result Body Mass Index 44.2 <MURTAZA Brooks - Last Filed: 07/23/22 12:29> Vital Signs - 24 hr 07/23/22 12:23 07/23/22 15:25 Temperature 99.0 F 99.8 F Pulse Rate 99 94 Respiratory Rate 20 20 Blood Pressure 121/80 116/86 Pulse Oximetry 97 95 Oxygen Delivery Method Room Air Room Air BMI result Body Mass Index 44.2 <Ever Irving MD - Last Filed: 07/23/22 20:05> Const Other: looking older than stated age <Ever Irving MD - Last Filed: 07/23/22 20:05> Nutritional Appearance: obese <Ever Irving MD - Last Filed: 07/23/22 20:05> Orientation/consciousness: oriented to person and patient oriented x3 <Ever Irving MD - Last Filed: 07/23/22 20:05> Limitations: no limitations <Ever Irving MD - Last Filed: 07/23/22 20:05> HENMT Head: Yes normal to inspection <Ever Irving MD - Last Filed: 07/23/22 20:05> Ears: external ears normal <Ever Irving MD - Last Filed: 07/23/22 20:05> General nose exam: Normal external nose present <Ever Irving MD - Last Filed: 07/23/22 20:05> Mouth: Normal oral and palatal mucosa present and oropharynx normal <Ever Irving MD - Last Filed: 07/23/22 20:05> Throat: Yes posterior oropharynx normal <Ever Irving MD - Last Filed: 07/23/22 20:05> Eyes General: appearance normal, both eyes and all related structures <Ever Irving MD - Last Filed: 07/23/22 20:05> Neck Neck: Yes normal visual inspection <Ever Irving MD - Last Filed: 07/23/22 20:05> Chest Chest palpation & inspection: normal inspection of the chest <Ever Irving MD - Last Filed: 07/23/22 20:05> Resp Auscultation: clear to auscultation bilaterally <Ever Irving MD - Last Filed: 07/23/22 20:05> Cardio Jugular venous distension: no JVD <Ever Irving MD - Last Filed: 07/23/22 20:05> Rate: regular rate <Ever Irving MD - Last Filed: 07/23/22 20:05> Rhythm: regular rhythm <Ever Irving MD - Last Filed: 07/23/22 20:05> Heart sounds: S1 normal heart sound present and S2 normal heart sound present <Ever Irving MD - Last Filed: 07/23/22 20:05> GI Other: soft abdomen with diffuse tenderness <Ever Irving MD - Last Filed: 07/23/22 20:05> Palpation (GI): Soft to palpation <Ever Irving MD - Last Filed: 07/23/22 20:05> Auscultation: normal bowel sounds <Ever Irving MD - Last Filed: 07/23/22 20:05> Other: rectal with maroon stool <Ever Irving MD - Last Filed: 07/23/22 20:05> General: Yes no CVA tenderness <Ever Irving MD - Last Filed: 07/23/22 20:05> Back/Spine/Pelvis Back: no CVA tenderness <Ever Irving MD - Last Filed: 07/23/22 20:05> Skin General skin exam: no rashes or lesions noted <Ever Irving MD - Last Filed: 07/23/22 20:05> Neuro General: oriented to person and patient oriented x3 <Ever Irving MD - Last Filed: 07/23/22 20:05> Cranial nerves: Yes CN's II-XII intact bilaterally <Eevr Irving MD - Last Filed: 07/23/22 20:05> Motor exam (neuro): 5/5 motor strength present throughout <Ever Irving MD - Last Filed: 07/23/22 20:05> Extrem General: Yes normal to inspection <Ever Irving MD - Last Filed: 07/23/22 20:05> Psych Appearance: grossly normal <Ever Irving MD - Last Filed: 07/23/22 20:05> Course Course Course Narrative: [id number]:25pm 57yoF with a PMHx of Ulcerative colitis not on medications for who is presenting to the ER with complaints of subjective fevers, chills, fatigue, malaise, gene ral weakness with nausea/vomiting and periumbilical abdominal pain that is radiating diffusely with associated bloody diarrhea since last night worse today. Denies recent travel or sick contacts or recent antibiotic usage. Plan: Labs including COVID/RSV/flu swab, chest x-ray. Patient will be sent back to the waiting room to be evaluated in the ED. <MURTAZA Brooks - Last Filed: 07/23/22 12:29> Reevaluation(s) Reevaluation #1: Discussed results with hospitalist and GI will admit for colitis <Ever Irving MD - Last Filed: 07/23/22 20:05> Time: 20:04 <Ever Irving MD - Last Filed: 07/23/22 20:05> Medical Decision Making Differential Diagnosis diveritculosis, diverticulitis, upper GI bleed, colitis, ulcer <Ever Irving MD - Last Filed: 07/23/22 20:05> Admission/Observation 57 yo with maroon stool, admission immediately considered <Ever Irving MD - Last Filed: 07/23/22 20:05> Consult Healthcare Provider Management of the patient was discussed with: Hospitalist and Law Firm Administrator <Ever Irving MD - Last Filed: 07/23/22 20:05> GI Dr. Gaitan <Ever Irving MD - Last Filed: 07/23/22 20:05> Lab Data MDM Lab Attestation statement: I reviewed the patient's lab results. <Ever Irving MD - Last Filed: 07/23/22 20:05> Result Diagrams: 07/23/22 15:09 07/23/22 15:09 <MURTAZA Brooks - Last Filed: 07/23/22 12:29> Labs: Lab Results 07/23/22 07/23/22 07/23/22 Range/Units 13:12 15:09 15:09 WBC 16.2 H (4.8-10.8) X10*3/uL RBC 4.79 (4.20-5.50) X10*6/uL Hgb 13.4 (12.0-16.0) g/dl Hct 40.3 (37.0-47.0) % MCV 84.1 (80.0-98.0) fL MCH 28.0 (27.0-33.0) pg MCHC 33.3 (31.0-35.0) g/dl RDW 13.4 (11.0-16.0) % Plt Count 201 (160-400) X10*3/uL MPV 10.4 (9.4-12.3) fL Immature Gran % (Auto) 0.3 (0.0-0.4) % Neut % (Auto) 83.7 H (45-73) % Lymph % (Auto) 9.0 L (20-40) % Hud[place]eth % (Auto) 6.8 (2-11) % Eos % (Auto) 0.0 (0-4) % Baso % (Auto) 0.2 (0-2) % Lymph # (Auto) 1.5 (1.2-4.9) X10*3/uL [place] # (Auto) 1.1 (0.1-1.2) X10*3/uL Eos # (Auto) 0.0 (0.0-0.4) X10*3/uL Baso # (Auto) 0.0 (0.0-0.2) X10*3/uL Abs Immat Gran (auto) 0.05 H (0.00-0.03) X10*3/uL Absolute Neuts (auto) 13.6 H (2.0-8.3) x10*3/uL Absolute Nucleated RBC 0.000 (0.0-0.012) X10*3/uL Nucleated RBC % (auto) 0.0 (0.0-0.2) /100WBC PT 11.5 (10.0-13.1) SEC INR 1.0 (0.9-1.1) Sodium (135-145) mmol/L Potassium (3.3-5.1) mmol/L Chloride (96-108) mmol/L Carbon Dioxide (22-29) mmol/L Anion Gap (12-20) BUN (9-16) mg/dL Creatinine (0.5-1.4) mg/dL Estim Creat Clear Calc Estimated GFR Random Glucose (60-115) mg/dL Calcium (8.4-10.2) mg/dL Magnesium (1.6-2.6) mg/dL Total Bilirubin (0.0-1.0) mg/dL AST (5-31) U/L ALT (0-31) U/L Alkaline Phosphatase (39-117) U/L Total Protein (6.5-8.0) g/dL Albumin (3.5-5.0) g/dL Lipase (8-78) U/L Influenza Type A (PCR) NEGATIVE (Negative) Influenza Type B (PCR) NEGATIVE (Negative) RSV RNA Qual (PCR) NEGATIVE (Negative) SARS-CoV-2 RNA (RT-PCR) NEGATIVE (Negative) 07/23/22 Range/Units 15:09 WBC (4.8-10.8) X10*3/uL RBC (4.20-5.50) X10*6/uL Hgb (12.0-16.0) g/dl Hct (37.0-47.0) % MCV (80.0-98.0) fL MCH (27.0-33.0) pg MCHC (31.0-35.0) g/dl RDW (11.0-16.0) % Plt Count (160-400) X10*3/uL MPV (9.4-12.3) fL Immature Gran % (Auto) (0.0-0.4) % Neut % (Auto) (45-73) % Lymph % (Auto) (20-40) % Hudspeth % (Auto) (2-11) % Eos % (Auto) (0-4) % Baso % (Auto) (0-2) % Lymph # (Auto) (1.2-4.9) X10*3/uL [place] # (Auto) (0.1-1.2) X10*3/uL Eos # (Auto) (0.0-0.4) X10*3/uL Baso # (Auto) (0.0-0.2) X10*3/uL Abs Immat Gran (auto) (0.00-0.03) X10*3/uL Absolute Neuts (auto) (2.0-8.3) x10*3/uL Absolute Nucleated RBC (0.0-0.012) X10*3/uL Nucleated RBC % (auto) (0.0-0.2) /100WBC PT (10.0-13.1) SEC INR (0.9-1.1) Sodium 142 (135-145) mmol/L Potassium 4.4 D (3.3-5.1) mmol/L Chloride 106 (96-108) mmol/L Carbon Dioxide 24 (22-29) mmol/L Anion Gap 16 (12-20) BUN 18 H (9-16) mg/dL Creatinine 0.86 (0.5-1.4) mg/dL Estim Creat Clear Calc 88.5 Estimated GFR > 60 Random Glucose 164 H (60-115) mg/dL Calcium 9.8 D (8.4-10.2) mg/dL Magnesium 1.8 (1.6-2.6) mg/dL Total Bilirubin 1.6 H (0.0-1.0) mg/dL AST 24 (5-31) U/L ALT 20 (0-31) U/L Alkaline Phosphatase 121 H (39-117) U/L Total Protein 7.6 (6.5-8.0) g/dL Albumin 4.3 (3.5-5.0) g/dL Lipase 11 (8-78) U/L Influenza Type A (PCR) (Negative) Influenza Type B (PCR) (Negative) RSV RNA Qual (PCR) (Negative) SARS-CoV-2 RNA (RT-PCR) (Negative) <MURTAZA Brooks - Last Filed: 07/23/22 12:29> Lab Results 07/23/22 07/23/22 07/23/22 Range/Units 13:12 15:09 15:09 WBC 16.2 H (4.8-10.8) X10*3/uL RBC 4.79 (4.20-5.50) X10*6/uL Hgb 13.4 (12.0-16.0) g/dl Hct 40.3 (37.0-47.0) % MCV 84.1 (80.0-98.0) fL MCH 28.0 (27.0-33.0) pg MCHC 33.3 (31.0-35.0) g/dl RDW 13.4 (11.0-16.0) % Plt Count 201 (160-400) X10*3/uL MPV 10.4 (9.4-12.3) fL Immature Gran % (Auto) 0.3 (0.0-0.4) % Neut % (Auto) 83.7 H (45-73) % Lymph % (Auto) 9.0 L (20-40) % [place]ud[place] % (Auto) 6.8 (2-11) % Eos % (Auto) 0.0 (0-4) % Baso % (Auto) 0.2 (0-2) % Lymph # (Auto) 1.5 (1.2-4.9) X10*3/uL [place] # (Auto) 1.1 (0.1-1.2) X10*3/uL Eos # (Auto) 0.0 (0.0-0.4) X10*3/uL Baso # (Auto) 0.0 (0.0-0.2) X10*3/uL Abs Immat Gran (auto) 0.05 H (0.00-0.03) X10*3/uL Absolute Neuts (auto) 13.6 H (2.0-8.3) x10*3/uL Absolute Nucleated RBC 0.000 (0.0-0.012) X10*3/uL Nucleated RBC % (auto) 0.0 (0.0-0.2) /100WBC PT 11.5 (10.0-13.1) SEC INR 1.0 (0.9-1.1) Sodium (135-145) mmol/L Potassium (3.3-5.1) mmol/L Chloride (96-108) mmol/L Carbon Dioxide (22-29) mmol/L Anion Gap (12-20) BUN (9-16) mg/dL Creatinine (0.5-1.4) mg/dL Estim Creat Clear Calc Estimated GFR Random Glucose (60-115) mg/dL Calcium (8.4-10.2) mg/dL Magnesium (1.6-2.6) mg/dL Total Bilirubin (0.0-1.0) mg/dL AST (5-31) U/L ALT (0-31) U/L Alkaline Phosphatase (39-117) U/L Total Protein (6.5-8.0) g/dL Albumin (3.5-5.0) g/dL Lipase (8-78) U/L Influenza Type A (PCR) NEGATIVE (Negative) Influenza Type B (PCR) NEGATIVE (Negative) RSV RNA Qual (PCR) NEGATIVE (Negative) SARS-CoV-2 RNA (RT-PCR) NEGATIVE (Negative) 07/23/22 Range/Units 15:09 WBC (4.8-10.8) X10*3/uL RBC (4.20-5.50) X10*6/uL Hgb (12.0-16.0) g/dl Hct (37.0-47.0) % MCV (80.0-98.0) fL MCH (27.0-33.0) pg MCHC (31.0-35.0) g/dl RDW (11.0-16.0) % Plt Count (160-400) X10*3/uL MPV (9.4-12.3) fL Immature Gran % (Auto) (0.0-0.4) % Neut % (Auto) (45-73) % Lymph % (Auto) (20-40) % [place] % (Auto) (2-11) % Eos % (Auto) (0-4) % Baso % (Auto) (0-2) % Lymph # (Auto) (1.2-4.9) X10*3/uL [place] # (Auto) (0.1-1.2) X10*3/uL Eos # (Auto) (0.0-0.4) X10*3/uL Baso # (Auto) (0.0-0.2) X10*3/uL Abs Immat Gran (auto) (0.00-0.03) X10*3/uL Absolute Neuts (auto) (2.0-8.3) x10*3/uL Absolute Nucleated RBC (0.0-0.012) X10*3/uL Nucleated RBC % (auto) (0.0-0.2) /100WBC PT (10.0-13.1) SEC INR (0.9-1.1) Sodium 142 (135-145) mmol/L Potassium 4.4 D (3.3-5.1) mmol/L Chloride 106 (96-108) mmol/L Carbon Dioxide 24 (22-29) mmol/L Anion Gap 16 (12-20) BUN 18 H (9-16) mg/dL Creatinine 0.86 (0.5-1.4) mg/dL Estim Creat Clear Calc 88.5 Estimated GFR > 60 Random Glucose 164 H (60-115) mg/dL Calcium 9.8 D (8.4-10.2) mg/dL Magnesium 1.8 (1.6-2.6) mg/dL Total Bilirubin 1.6 H (0.0-1.0) mg/dL AST 24 (5-31) U/L ALT 20 (0-31) U/L Alkaline Phosphatase 121 H (39-117) U/L Total Protein 7.6 (6.5-8.0) g/dL Albumin 4.3 (3.5-5.0) g/dL Lipase 11 (8-78) U/L Influenza Type A (PCR) (Negative) Influenza Type B (PCR) (Negative) RSV RNA Qual (PCR) (Negative) SARS-CoV-2 RNA (RT-PCR) (Negative) <Ever Irving MD - Last Filed: 07/23/22 20:05> Independent Interpretation I performed an independent interpretation of an: Plain X-Ray (CXR: no infiltrate) <Ever Irving MD - Last Filed: 07/23/22 20:05> Radiology Impression Discussion of test interpretation with radiology: I have reviewed the radiologist's reading. (Ct shows transverse and descending colitis) <Ever Irving MD - Last Filed: 07/23/22 20:05> Social Determinants psychiatric illness <Ever Irving MD - Last Filed: 07/23/22 20:05> Medications Administered Generic Name Dose Route Start Last Admin Trade Name Freq PRN Reason Stop Dose Admin Sodium Chloride 1,000 mls @ 125 mls/hr 07/23/22 16:30 07/23/22 16:44 Ns IVCONT 125 mls/hr .Q8H CINDY Administration Discontinued Medications Generic Name Dose Route Start Last Admin Trade Name Freq PRN Reason Stop Dose Admin Iohexol 100 ml 07/23/22 17:24 07/23/22 17:24 Iohexol 350 Mg/Ml 100 Ml Infus..Btl IV 07/23/22 17:25 85 ml ONCE ONE Administration Pantoprazole Sodium 40 mg 07/23/22 16:20 07/23/22 16:44 Pantoprazole Sodium 40 Mg/10 Ml Vial IVPUSH 07/23/22 16:21 40 mg ONCE ONE Administration <MURTAZA Brooks - Last Filed: 07/23/22 12:29> Medications Administered Generic Name Dose Route Start Last Admin Trade Name Freq PRN Reason Stop Dose Admin Sodium Chloride 1,000 mls @ 125 mls/hr 07/23/22 16:30 07/23/22 16:44 Ns IVCONT 125 mls/hr .Q8H CINDY Administration Discontinued Medications Generic Name Dose Route Start Last Admin Trade Name Freq PRN Reason Stop Dose Admin Iohexol 100 ml 07/23/22 17:24 07/23/22 17:24 Iohexol 350 Mg/Ml 100 Ml Infus..Btl IV 07/23/22 17:25 85 ml ONCE ONE Administration Pantoprazole Sodium 40 mg 07/23/22 16:20 07/23/22 16:44 Pantoprazole Sodium 40 Mg/10 Ml Vial IVPUSH 07/23/22 16:21 40 mg ONCE ONE Administration <Ever Irving MD - Last Filed: 07/23/22 20:05> Discharge Plan Discharge Clinical Impression: Colitis <MURTAZA Brooks - Last Filed: 07/23/22 12:29> Patient Disposition: Admitted As Inpatient <MURTAZA Brooks - Last Filed: 07/23/22 12:29>
[2022-07-23 14:05] LABS: Influenza A PCR NEGATIVE (Negative); Influenza B PCR NEGATIVE (Negative); Resp Syncy Virus RNA Qual PCR NEGATIVE (Negative); SARS COV2 PCR INHOUSE NEGATIVE (Negative)
[2022-07-23 15:19] LABS: MANUAL DIFF FLAG NO
[2022-07-23 15:21] LABS: Basophils Percent Auto 0.2 % (0-2); Hematocrit 40.3 % (37.0-47.0); Hemoglobin 13.4 g/dl (12.0-16.0); Imm Gran Abs Auto 0.05 X10*3/uL (0.00-0.03); Imm Gran Pct Auto 0.3 % (0.0-0.4); Lymphocytes Absolute Auto 1.5 X10*3/uL (1.2-4.9); Mean Corpuscular HGB Conc 33.3 g/dl (31.0-35.0); Mean Corpuscular Volume 84.1 fL (80.0-98.0); Mean Platelet Volume 10.4 fL (9.4-12.3); Monocytes Absolute Auto 1.1 X10*3/uL (0.1-1.2); Monocytes Percent Auto 6.8 % (2-11); Neutrophils Absolute Auto 13.6 x10*3/uL (2.0-8.3); Neutrophils Percent Auto 83.7 % (45-73); Platelet Count 201 X10*3/uL (160-400); Red Blood Count 4.79 X10*6/uL (4.20-5.50); Red Cell Distribution Width 13.4 % (11.0-16.0); White Blood Count 16.2 X10*3/uL (4.8-10.8)
[2022-07-23 15:25] VITALS: BP 116/86; PULSE 94; RESP 20; TEMP 37.7; O2SAT 95
[2022-07-23 15:38] LABS: Alanine Aminotransferase 20 U/L (0-31); Albumin Level 4.3 g/dL (3.5-5.0); Alkaline Phosphatase 121 U/L (39-117); Anion Gap 16 (12-20); Aspartate Amino Transferase 24 U/L (5-31); Bilirubin Total 1.6 mg/dL (0.0-1.0); Blood Urea Nitrogen 18 mg/dL (9-16); Calcium 9.8 mg/dL (8.4-10.2); Carbon Dioxide 24 mmol/L (22-29); Chloride 106 mmol/L (96-108); Creatinine Clr Calc Pharmacy 88.5; Estimated Glomerular Filt Rate > 60; Glucose Random 164 mg/dL (60-115); Lipase 11 U/L (8-78); Magnesium 1.8 mg/dL (1.6-2.6); Potassium 4.4 mmol/L (3.3-5.1); Sodium 142 mmol/L (135-145); Total Protein 7.6 g/dL (6.5-8.0)
[2022-07-23 15:57] LABS: Prothrombin Time 11.5 SEC (10.0-13.1)
[2022-07-23] MEDS: 0.9 % Sodium Chloride 1,000 ML 125 ML IVCONT (16:44)
[2022-07-23] MEDS: Pantoprazole Sodium 40 MG/10 ML VIAL IVPUSH ×2 (16:44→21:26)
[2022-07-23] MEDS: iohexoL 350 MG/ML 100 ML INFUS..BTL IV (17:24)
--- NOTE | 2022-07-23 19:10 | PC.NURSE ---
Addendum entered by Alison Stephens RN 07/23/22 22:06: pt report given to MIRZA Bailey Addendum entered by Alison Stephens RN 07/23/22 19:42: pt is alert and oriented resting in bed breathing equally unlabored no signs of acute distress notice Original Note: report received from MIRZA Nava
--- NOTE | 2022-07-23 20:10 | P.HPHOSP_ITS ---
History of Present Illness Date of Service: 07/23/22 Chief Complaint: GI bleed This is 57-year-old female with pertinent history of essential hypertension, xhm-jzmtlzs-rzxncsrft diabetes mellitus, mixed hyperlipidemia, mood disorder, chronic opioid use, obesity who presents to the emergency department for evaluation of dark stools mixed with blood. Patient states she ate steak and rice for dinner 1 day prior to presentation. Since then she has been having epigastric pain which is constant, not related to food, nonradiating and without any relieving factors. It is associated with nonbloody vomitus . She also has been having diarrhea which is dark and occasionally mixed with blood. Does endorse chills, malaise, decreased p.o. intake over the last day . She denies fever, chest discomfort, palpitations, shortness of breath, changes in urinary habits. States she had similar symptoms of vomiting abdominal pain and diarrhea about 2 years ago but she did not have bloody stools then. In the emergency department, rectal examination was positive for maroon colored blood mixed with stools. Imaging with colitis Review of Systems Constitutional: Constitutional: Reports chills, Reports lethargy, Reports malaise and Reports weakness Cardiovascular: Cardiovascular: Reports no additional cardiovascular complaints Respiratory: Respiratory: Reports no additional respiratory complaints Gastrointestinal: Gastrointestinal: Reports abdominal pain, Reports melena, Reports hematochezia, Reports GI cramping, Reports loose stools, Reports nausea and Reports vomiting Genitourinary: Genitourinary: Reports no additional female genitourinary complaints Neurologic: Reports weakness PMFSH Medical History Anxiety Benign essential hypertension Bilateral knee pain Carpal tunnel syndrome of left wrist Cervical cancer DDD (degenerative disc disease), lumbosacral Degenerative joint disease of left knee Depression Diabetes mellitus Failed back syndrome, lumbar Fatty liver GERD without esophagitis History of renal stone Hx of concussion Knee pain, bilateral Left wrist pain Lumbar degenerative disc disease Morbid obesity with BMI of 40.0-44.9, adult Pure hypercholesterolemia Smoker Tibia fracture Weight loss Family History Father Alzheimer disease Mouth cancer Mother Cancer Medical history unknown Sister No problems noted. Brother No problems noted. Maternal Grandfather HTN (hypertension) Maternal Grandmother HTN (hypertension) Other Mental health problem Surgical History History of carpal tunnel release History of carpal tunnel release History of lumbar surgery History of surgery (~1999) Hx of colonoscopy Hx of lithotripsy Previous back surgery Social History Household Members: Children Household Members Other:: 2 daughters Housing: Apartment Do you presently have visiting nurse or other home services: Yes Alcohol intake: never Patient Tobacco Use Status: Current everyday Tobacco user Tobacco use type: Cigarette Cigarettes Per Day: 10 Years Smoked: 20 Advance Directives: No Advance Directives Information Provided: No service: No 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al status: unemployed and disabled 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 worked as a [employer] disabled approx 2012 Med Allergies Allergy/AdvReac Type Severity Reaction Status Date / Time doxycycline [DOXYCYCLINE] Allergy Severe PALPITATIONS, Verified 07/09/22 10:13 anaphylaxis ibuprofen [IBUPROFEN] Allergy Severe HIVES Verified 07/09/22 10:13 NSAIDS (Non-Steroidal Allergy Severe HIVES Verified 07/09/22 10:13 Anti-Inflamma [NSAIDS (NON-STEROIDAL ANTI-INFLAMMA] cefaclor [From CECLOR] Allergy Intermediate RASH Verified 07/09/22 10:13 acetaminophen [Tylenol] AdvReac Intermediate n/v Verified 07/09/22 10:13 cephalexin [From KEFLEX] AdvReac Intermediate GI UPSET Verified 07/09/22 10:13 codeine [CODEINE] AdvReac Intermediate N/V Verified 07/09/22 10:13 gabapentin [GABAPENTIN] AdvReac Intermediate NAUSEA/VOMI Verified 07/09/22 10:13 TING tolterodine [From DETROL] AdvReac Intermediate PALPITATION Verified 07/09/22 10:13 S Active Medications: Current Medications Acetaminophen (Acetaminophen 325 Mg Tablet) 650 mg PO Q6H PRN PRN Reason: Pain, Mild (Pain Scale 1-3) Sodium Chloride (Ns) 1,000 mls @ 125 mls/hr IVCONT .Q8H [facility] Last Admin: 07/23/22 16:44 Dose: 125 mls/hr Levofloxacin (Levaquin) 500 mg in 100 mls @ 100 mls/hr IV ONCE ONE Stop: 07/23/22 20:40 Metronidazole (Flagyl) 500 mg in 100 mls @ 100 mls/hr IV ONCE ONE Stop: 07/23/22 20:40 Piperacillin Sod/Tazobactam (Sod 4.5 gm/ Sodium Chloride) 100 mls @ 200 mls/hr IV Q6H [facility] Melatonin (Melatonin 3 Mg Tablet) 6 mg PO BEDTIME PRN PRN Reason: Insomnia Ondansetron HCl (Ondansetron Hcl 4 Mg/2 Ml Vial) 4 mg IVPUSH Q8H PRN PRN Reason: Nausea and Vomiting Pharmacy Consult (Consult Rx Perform Med Rec) 1 each MISCELLANE ONCE PRN PRN Reason: Consult order Sodium Chloride (0.9 % Sodium Chloride Flush 3 Ml Syringe) 3 ml IVFLUSH QSHIFT [facility] Home Medications Medication Instructions Recorded Confirmed Last Taken Type metformin 500 mg tablet,extended 100 mg PO BID 08/12/21 04/16/22 Unknown History release 24 hr clonazepam 2 mg tablet (Klonopin) 2 mg PO BID PRN anxiety 07/23/22 Unknown History Physical Exam Vital Signs and Narrative: Vital Signs: Last Vital Signs Temp 99.8 F 07/23/22 15:25 Pulse 94 07/23/22 15:25 Resp 20 07/23/22 15:25 BP 116/86 07/23/22 15:25 Pulse Ox 95 07/23/22 15:25 O2 Del Method 07/23/22 15:25 BMI result Body Mass Index 44.2 Middle-aged female lying in bed in no distress Neck supple, no JVD Regular rate and rhythm, S1-S2 heard Regular breath sounds bilaterally, no wheezing or crackles appreciated Abdomen with generalized tenderness to palpation, no guarding, no rigidity Patient is awake, alert and oriented to self, place, time and person ; no focal motor deficit Psych: Normal mood No pedal edema Results Labs 07/23/22 15:09 07/23/22 15:09 Labs: Laboratory Results - last 24 hr 07/23/22 07/23/22 07/23/22 13:12 15:09 15:09 MCV 84.1 MCH 28.0 MCHC 33.3 RDW 13.4 Plt Count 201 MPV 10.4 Immature Gran % (Auto) 0.3 Neut % (Auto) 83.7 H Lymph % (Auto) 9.0 L [place] % (Auto) 6.8 Eos % (Auto) 0.0 Baso % (Auto) 0.2 Lymph # (Auto) 1.5 [place] # (Auto) 1.1 Eos # (Auto) 0.0 Baso # (Auto) 0.0 Abs Immat Gran (auto) 0.05 H Absolute Neuts (auto) 13.6 H Absolute Nucleated RBC 0.000 Nucleated RBC % (auto) 0.0 PT 11.5 INR 1.0 Anion Gap Estim Creat Clear Calc Estimated GFR Random Glucose Calcium Magnesium Total Bilirubin AST ALT Alkaline Phosphatase Total Protein Albumin Lipase Influenza Type A (PCR) NEGATIVE Influenza Type B (PCR) NEGATIVE RSV RNA Qual (PCR) NEGATIVE SARS-CoV-2 RNA (RT-PCR) NEGATIVE 07/23/22 15:09 MCV MCH MCHC RDW Plt Count MPV Immature Gran % (Auto) Neut % (Auto) Lymph % (Auto) [place] % (Auto) Eos % (Auto) Baso % (Auto) Lymph # (Auto) [place] # (Auto) Eos # (Auto) Baso # (Auto) Abs Immat Gran (auto) Absolute Neuts (auto) Absolute Nucleated RBC Nucleated RBC % (auto) PT INR Anion Gap 16 Estim Creat Clear Calc 88.5 Estimated GFR > 60 Random Glucose 164 H Calcium 9.8 D Magnesium 1.8 Total Bilirubin 1.6 H AST 24 ALT 20 Alkaline Phosphatase 121 H Total Protein 7.6 Albumin 4.3 Lipase 11 Influenza Type A (PCR) Influenza Type B (PCR) RSV RNA Qual (PCR) SARS-CoV-2 RNA (RT-PCR) Imaging Radiologist's Impressions: Impressions Chest X-Ray 07/23/22 12:50 IMPRESSION: No acute cardiopulmonary findings. Abdomen/Pelvis CT 07/23/22 17:37 IMPRESSION: Marked wall edema involving the transverse, descending and sigmoid colon with infiltration of the pericolonic fat, suggestive of colitis which may be infectious/inflammatory, with ischemic not excluded however there is no pneumatosis or portal venous gas, and no loss of bowel wall enhancement to favor ischemia. Mesenteric vessels appear grossly patent. Punctate nonobstructing left renal stone. Left kidney is asymmetrically atrophic. Assessment and Plan (1) GI bleed: Status: Acute (2) Colitis: Status: Acute Plan This is 57-year-old female with pertinent history of essential hypertension, bhr-awvfcaw-qfsgdfohs diabetes mellitus, mixed hyperlipidemia, mood disorder, chronic opioid use, obesity who presents to the emergency department for evalua tion of dark stools mixed with blood. #. Acute GI bleed with imaging evidence of colitis: Initiating empiric IV Zosyn. Administered IV Protonix. GI consulted from the ER, appreciate assistance. Will keep NPO after midnight for possible scope. Close monitoring of hemodynamics and H&H #. Essential hypertension: Hold antihypertensives in the setting of GI bleed #. Joj-yzqukvx-lqdadrcug diabetes mellitus: Hold metformin. Initiating Accu- Cheks with sliding scale insulin every 6 hours #. Mood disorder: Continue home mood stabilizers #. Obesity: Counseled regarding diet and exercise DVT prophylaxis: Mechanical Full code NPO after midnight Admit as inpatient and will require two night minimum hospital stay for close monitoring of hemodynamics. Specialist consult pending Time Spent With Patient Time: Total time managing care of this patient today ____ minutes. Quality Stroke Does the patient have a stroke diagnosis?: No VTE Prior VTE?: No VTE Risk Level:: Medical - moderate - high VTE Device Contraindication: N/A - Device Ordered VTE Drug Contraindication: Treatment Not Indicated
[2022-07-23] MEDS: levoFLOXacin/D5W 500 MG/100 ML PIGGYBACK 100 MG IV (20:23)
[2022-07-23] MEDS: metroNIDAZOLE/NS 500 MG/100 ML PIGGYBACK 100 MG IV (20:23)
[2022-07-23 20:32] LABS: Glucose, Whole Blood 154 mg/dL (60-115)
--- NOTE | 2022-07-23 20:46 | PHA.MEDREC ---
Pharmacy Consult ? Medication Reconciliation Pharmacy has completed the medication reconciliation. Pt with list at bedside, matched claim history exactly.
[2022-07-23] MEDS: Piperacillin Sodium/Tazobactam 4.5 GM in 0.9 % Sodium Chloride 100 ML IV (21:27)
--- NOTE | 2022-07-23 23:08 | PC.NURSE ---
Took over care at 23:00 from MIRZA Rosas
[2022-07-24] MEDS: Insulin Lispro 100 UNIT/ML 3 ML VIAL SUBCUT (00:38)
--- NOTE | 2022-07-24 00:41 | PC.NURSE ---
Addendum entered by Leo Heredia 07/24/22 01:51: The IVF are running behind hr due to pt line was being occluded. MIRZA Johnson inserted a new IV 20g utilizing the ultrasound. Original Note: This nurse assumed care at 23:00. Pt's meds were administered as order by the MAR. Pt's IVF are running slow due to pt keeps moving her arm and it keeps occluded. This nurse asked for assistance for an IV due to pt is a difficult stick.
[2022-07-24 00:50] VITALS: BP 101/67; PULSE 89; RESP 18; O2SAT 98
[2022-07-24 01:52] VITALS: RESP 20
[2022-07-24] MEDS: Morphine Sulfate 4 MG/ML CARTRIDGE IVPUSH ×2 (01:52→06:42)
[2022-07-24 02:43] VITALS: RESP 17
--- NOTE | 2022-07-24 03:20 | PC.NURSE ---
pt a&o, no sob or chest pain, pt is Npo for bowel rest, second IV placed in left upper arm ,due to left AC IV being positional. Both IV are intact and function well. Pt is independent and able to walk with a steady gait. No sign of distress at this time. Will continue to monitor.
[2022-07-24 03:57] LABS: Glucose, Whole Blood 133 mg/dL (60-115)
[2022-07-24] MEDS: Piperacillin Sodium/Tazobactam 4.5 GM in 0.9 % Sodium Chloride 100 ML IV ×2 (04:19→10:26)
--- NOTE | 2022-07-24 04:25 | PC.NURSE ---
Pt's meds administered as order by the MAR. Pt's asleep. Pt IVF are still running behind scheduled.Pt reports chronic pain 11/14 , pain meds were administered as order.
[2022-07-24] MEDS: 0.9 % Sodium Chloride 1,000 ML 125 ML IVCONT ×2 (04:54→10:40)
[2022-07-24 06:06] LABS: Basophils Percent Auto 0.3 % (0-2); Eosinophils Percent Auto 0.3 % (0-4); Hematocrit 34.8 % (37.0-47.0); Hemoglobin 11.5 g/dl (12.0-16.0); Imm Gran Abs Auto 0.05 X10*3/uL (0.00-0.03); Imm Gran Pct Auto 0.3 % (0.0-0.4); Lymphocytes Absolute Auto 2.1 X10*3/uL (1.2-4.9); MANUAL DIFF FLAG SCAN; Mean Corpuscular Hemoglobin 28.6 pg (27.0-33.0); Mean Corpuscular Volume 86.6 fL (80.0-98.0); Mean Platelet Volume 10.8 fL (9.4-12.3); Monocytes Absolute Auto 1.6 X10*3/uL (0.1-1.2); Monocytes Percent Auto 10.6 % (2-11); Neutrophils Absolute Auto 11.2 x10*3/uL (2.0-8.3); Neutrophils Percent Auto 74.5 % (45-73); Platelet Count 163 X10*3/uL (160-400); Red Blood Count 4.02 X10*6/uL (4.20-5.50); Red Cell Distribution Width 13.8 % (11.0-16.0); SCAN SMEAR FLAG 1
[2022-07-24 06:14] VITALS: BP 117/63; PULSE 107; RESP 17; TEMP 36.9; O2SAT 97
[2022-07-24 06:18] LABS: Anion Gap 14 (12-20); Blood Urea Nitrogen 16 mg/dL (9-16); Calcium 8.9 mg/dL (8.4-10.2); Carbon Dioxide 24 mmol/L (22-29); Chloride 106 mmol/L (96-108); Estimated Glomerular Filt Rate > 60; Glucose Random 125 mg/dL (60-115); Sodium 140 mmol/L (135-145)
--- NOTE | 2022-07-24 06:24 | PC.NURSE ---
Pt's IV was dislodged, is assisting with an ultrasound to get an IV.
[2022-07-24 06:27] LABS: SLIDE REVIEW VERIFIED
[2022-07-24 06:42] VITALS: RESP 18
[2022-07-24 08:14] LABS: C Reactive Protein 6.68 mg/dL (< or = 0.50)
[2022-07-24 08:59] LABS: Glucose, Whole Blood 150 mg/dL (60-115)
--- NOTE | 2022-07-24 09:36 | P.PNIM_ITS ---
Subjective Subjective Date of Service: 07/24/22 Interval History: C/o lower abd pain No further hematochezia Review of Systems Review of Systems: Yes all other systems are reviewed and are negative Physical Exam Vital Signs: Vital Signs: Last Vital Signs Temp 98.5 F 07/24/22 06:14 Pulse 107 H 07/24/22 06:14 Resp 18 07/24/22 06:42 BP 117/63 07/24/22 06:14 Pulse Ox 97 07/24/22 06:14 O2 Del Method 07/24/22 06:14 BMI result Body Mass Index 44.2 Const: Other: Gen: in no acute distress HEENT: sclera anicteric, moist mucus membranes Neck: supple Lungs: clear to auscultation bilaterally Heart: regular rate and rhythm, no murmurs Abd: soft, tender diffusely without rebound/guarding, non-distended, morbidly obese Ext: no edema Skin: warm/well-perfused Neuro: alert and oriented x3, no focal findings Psych: appropriate affect Objective Data Active Medications Acetaminophen (Acetaminophen 325 Mg Tablet) 650 mg PO Q6H PRN PRN Reason: Pain, Mild (Pain Scale 1-3) Amlodipine Besylate (Amlodipine Besylate 5 Mg Tablet) 5 mg PO DAILY [facility]; Protocol Atorvastatin Calcium (Atorvastatin Calcium 10 Mg Tablet) 10 mg PO BEDTIME [facility] Clonazepam (Clonazepam 1 Mg Tablet) 2 mg PO BID PRN PRN Reason: anxiety Dextrose (Dextrose 50 % 25 Gm/50 Ml Syringe) 25 gm IVPUSH Q15M PRN; Protocol PRN Reason: per Hypoglycemia Standing Ord. Glucose (Glucose Gel 15 Gm Gel..Gram.) 15 gm PO Q15M PRN; Protocol PRN Reason: per Hypoglycemia Standing Ord. Sodium Chloride (Ns) 1,000 mls @ 125 mls/hr IVCONT .Q8H [facility] Last Admin: 07/24/22 04:54 Dose: 125 mls/hr Documented By: WILLIAM Piperacillin Sod/Tazobactam (Sod 4.5 gm/ Sodium Chloride) 100 mls @ 200 mls/hr IV Q6H [facility] Last Infusion: 07/24/22 04:54 Dose: 0 mls/hr Documented By: WILLIAM Insulin Human Lispro (Insulin Lispro 100 Unit/Ml 3 Ml Vial) 0 unit SUBCUT Q6H [facility]; Protocol Last Admin: 07/24/22 06:36 Dose: Not Given Documented By: WILLIAM Non-Admin Reason: NPO Lisinopril (Lisinopril 40 Mg Tablet) 40 mg PO DAILY [facility]; Protocol Melatonin (Melatonin 3 Mg Tablet) 6 mg PO BEDTIME PRN PRN Reason: Insomnia Omeprazole (Omeprazole 20 Mg Capsule.Dr) 20 mg PO DAILY [facility] Ondansetron HCl (Ondansetron Hcl 4 Mg/2 Ml Vial) 4 mg IVPUSH Q8H PRN PRN Reason: Nausea and Vomiting Oxycodone HCl (Oxycodone Hcl Immed Release 5 Mg Tablet) 1 mg PO QID PRN PRN Reason: severe pain (scale score 7-10) Oxycodone HCl (Oxycodone Hcl Er 10 Mg Tab.Er.12h) 10 mg PO BID [facility] Pharmacy Consult (Consult Rx Perform Med Rec) 1 each MISCELLANE ONCE PRN PRN Reason: Consult order Pregabalin (Pregabalin 150 Mg Capsule) 300 mg PO BID [facility] Sodium Chloride (0.9 % Sodium Chloride Flush 3 Ml Syringe) 3 ml IVFLUSH QSHIFT [facility] Last Admin: 07/24/22 07:57 Dose: Not Given Documented By: YUNIEL Non-Admin Reason: IV Running Labs 07/24/22 05:28 07/24/22 05:28 Labs: Laboratory Results - last 24 hr 07/23/22 07/23/22 07/23/22 13:12 15:09 15:09 MCV 84.1 MCH 28.0 MCHC 33.3 RDW 13.4 Plt Count 201 MPV 10.4 Immature Gran % (Auto) 0.3 Neut % (Auto) 83.7 H Lymph % (Auto) 9.0 L [place] % (Auto) 6.8 Eos % (Auto) 0.0 Baso % (Auto) 0.2 Lymph # (Auto) 1.5 [place] # (Auto) 1.1 Eos # (Auto) 0.0 Baso # (Auto) 0.0 Abs Immat Gran (auto) 0.05 H Absolute Neuts (auto) 13.6 H Absolute Nucleated RBC 0.000 Nucleated RBC % (auto) 0.0 Smear Tech's Comments PT 11.5 INR 1.0 Anion Gap Estim Creat Clear Calc Estimated GFR POC Glucose Random Glucose Calcium Magnesium Total Bilirubin AST ALT Alkaline Phosphatase C-Reactive Protein Total Protein Albumin Lipase Influenza Type A (PCR) NEGATIVE Influenza Type B (PCR) NEGATIVE RSV RNA Qual (PCR) NEGATIVE SARS-CoV-2 RNA (RT-PCR) NEGATIVE 07/23/22 07/23/22 07/24/22 15:09 20:29 03:52 MCV MCH MCHC RDW Plt Count MPV Immature Gran % (Auto) Neut % (Auto) Lymph % (Auto) [place] % (Auto) Eos % (Auto) Baso % (Auto) Lymph # (Auto) [place] # (Auto) Eos # (Auto) Baso # (Auto) Abs Immat Gran (auto) Absolute Neuts (auto) Absolute Nucleated RBC Nucleated RBC % (auto) Smear Tech's Comments PT INR Anion Gap 16 Estim Creat Clear Calc 88.5 Estimated GFR > 60 POC Glucose 154 H 133 H Random Glucose 164 H Calcium 9.8 D Magnesium 1.8 Total Bilirubin 1.6 H AST 24 ALT 20 Alkaline Phosphatase 121 H C-Reactive Protein Total Protein 7.6 Albumin 4.3 Lipase 11 Influenza Type A (PCR) Influenza Type B (PCR) RSV RNA Qual (PCR) SARS-CoV-2 RNA (RT-PCR) 07/24/22 07/24/22 07/24/22 05:28 05:28 08:56 MCV 86.6 MCH 28.6 MCHC 33.0 RDW 13.8 Plt Count 163 MPV 10.8 Immature Gran % (Auto) 0.3 Neut % (Auto) 74.5 H Lymph % (Auto) 14.0 L [place] % (Auto) 10.6 Eos % (Auto) 0.3 Baso % (Auto) 0.3 Lymph # (Auto) 2.1 [place] # (Auto) 1.6 H Eos # (Auto) 0.0 Baso # (Auto) 0.0 Abs Immat Gran (auto) 0.05 H Absolute Neuts (auto) 11.2 H Absolute Nucleated RBC 0.000 Nucleated RBC % (auto) 0.0 Smear Tech's Comments VERIFIED PT INR Anion Gap 14 Estim Creat Clear Calc 94.0 Estimated GFR > 60 POC Glucose 150 H Random Glucose 125 H Calcium 8.9 D Magnesium Total Bilirubin AST ALT Alkaline Phosphatase C-Reactive Protein 6.68 H Total Protein Albumin Lipase Influenza Type A (PCR) Influenza Type B (PCR) RSV RNA Qual (PCR) SARS-CoV-2 RNA (RT-PCR) Assessment and Plan (1) Colitis: Status: Acute Plan d#2 57yo F with HTN, DM2, HLD, mood disorder, chronic opioid use, obesity presenting with dark stools mixed with blood, admitted for colitis # hemorrhagic colitis - pip-anna d#2, stool studies, GI consultation, clear liquids, IV fluids. prior C-scope 04/30/20 without evidence of IBD # HTN - hold amlodipine + lisinopril # DM2 - hold MTF, give correction-dose lispro # HLD - continue statin # mood disorder - continue clonazepam # chronic pain - continue oxycodone, pregabalin # morbid obesity - diet/exercise counseling # VTE ppx: SCDs # dispo: eventually home Time Spent With Patient Time: Total time managing care of this patient today __40__ minutes. Quality Stroke Does the patient have a stroke diagnosis?: No VTE Prior VTE?: No VTE Risk Level:: Medical - moderate - high VTE Device Contraindication: N/A - Device Ordered VTE Drug Contraindication: Treatment Not Indicated
--- NOTE | 2022-07-24 09:45 | MHC.CM.PN ---
CM spoke with Patient and addressed IMM with her (original to be given to Patient and as copy to be placed on the chart).Patient lives with her Disabled Daughter in a 3 bedroom apartment and she required no services nor DME CORRECTIVE AND MANUAL ARTS THERAPIST. Home self care is the goal and CM has initiated and will follow for dc planning. Patient has received Moderna/Covid vax x4 and her PCP is Dr. Cachorro Arellano.
[2022-07-24] MEDS: Omeprazole 20 MG CAPSULE.DR PO (10:26)
--- NOTE | 2022-07-24 11:07 | PC.NURSE ---
ASSUMED CARE OF THIS PT AT 0900. PT'S MEDS NOT AVAILABLE IN [facility], SPOKE WITH CRISTINA IN PHARMACY, MEDS WILL BE BROUGHT TO UNIT. AVAILABLE MEDS GIVEN DOCUMENTED. PT UP TO BATHROOM INDEPENDENTLY. DENIES PAIN.
[2022-07-24] MEDS: Pregabalin 150 MG CAPSULE 300 MG PO ×2 (12:38)
[2022-07-24] MEDS: oxyCODONE HCl ER 10 MG TAB.ER.12H PO (12:45)
[2022-07-24] MEDS: amLODIPine Besylate 5 MG TABLET PO (12:46)
[2022-07-24] MEDS: lisinopriL 40 MG TABLET PO (12:47)
[2022-07-24] MEDS: Acetaminophen 325 MG TABLET 650 MG PO (13:01)
[2022-07-24] MEDS: oxyCODONE HCl Immed Release 5 MG TABLET PO (13:01)
[2022-07-24 13:21] LABS: Glucose, Whole Blood 129 mg/dL (60-115)
--- NOTE | 2022-07-24 14:42 | PM.DS ---
DS: Providers Provider Date of Service: 07/24/22 Date of admission: 07/23/22 19:50 Date of discharge: 07/24/22 Primary care physician: Unknown Physician Consults: 07/23/22 20:29 Consult to Gastroenterology Routine Consulting Provider: Walter Stein Reason for consultation: GI bleed DS: Diagnosis Discharge Diagnosis (1) Colitis: Status: Acute (2) GI bleed: Status: Acute (3) Morbid obesity: Status: Acute DS: Summary Hospital Course Hospital Course: from admission H+P by hospitalist Clarissa Chan, 07/23/22: This is 57-year-old female with pertinent history of essential hypertension, eag-[id number] diabetes mellitus, mixed hyperlipidemia, mood disorder, chronic opioid use, obesity who presents to the emergency department for evaluation of dark stools mixed with blood.? Patient states she ate steak and rice for dinner 1 day prior to presentation.? Since then she has been having epigastric pain which is constant, not related to food, nonradiating and without any relieving factors.? It is associated with nonbloody vomitus .? She also has been having diarrhea which is dark and occasionally mixed with blood.? Does endorse chills, malaise, decreased p.o. intake over the last day .? She denies fever, chest discomfort, palpitations, shortness of breath, changes in urinary habits.? States she had similar symptoms of vomiting abdominal pain and diarrhea about 2 years ago but she did not have bloody stools then. In the emergency department, rectal examination was positive for maroon colored blood mixed with stools.? Imaging with colitis The patient was admitted to the hospitalist service on IV pipercicillin tazobactam. Blood and diarrhea resolved. Diet was advanced. GI was consulted. Presentation was most consistent with infectious colitis. Stool samples could not be collected before diarrhea resolved. She was eager to leave the hospital due to being the primary caregiver for her disabled daughter and it was thought to be reasonable to discharge her on oral antibiotics with close GI follow-up [she requests to follow Dr Ribeiro from [facility]]. Time Spent with Patient Time attestation: Total time managing care of this patient today ___35_ minutes. Discharge coordination time: Greater than 30 minutes Quality: Safe Use of Opioids Does Pt have an Active Cancer Diagnosis on the Problem List?: No Quality: Stroke Does the patient have a stroke diagnosis?: No Physical Exam Vital Signs: Vital Signs: Last Vital Signs Temp 98.5 F 07/24/22 06:14 Pulse 107 H 07/24/22 06:14 Resp 18 07/24/22 06:42 BP 117/63 07/24/22 06:14 Pulse Ox 97 07/24/22 06:14 O2 Del Method 07/24/22 06:14 BMI result Body Mass Index 44.2 Gen: in no acute distress HEENT: sclera anicteric, moist mucus membranes Neck: supple Lungs: clear to auscultation bilaterally Heart: regular rate and rhythm, no murmurs Abd: soft, non-tender, non-distended, morbid obesity Ext: no edema Skin: warm/well-perfused Neuro: alert and oriented x3, no focal findings Psych: appropriate affect DS: Data Data Completed and Pending Completed studies during hospitalization [Text1]: Laboratory Results WBC 15.0 X10*3/uL (4.8-10.8) H 07/24/22 05:28 RBC 4.02 X10*6/uL (4.20-5.50) L 07/24/22 05:28 Hgb 11.5 g/dl (12.0-16.0) L 07/24/22 05:28 Hct 34.8 % (37.0-47.0) L 07/24/22 05:28 MCV 86.6 fL (80.0-98.0) 07/24/22 05:28 MCH 28.6 pg (27.0-33.0) 07/24/22 05:28 MCHC 33.0 g/dl (31.0-35.0) 07/24/22 05:28 RDW 13.8 % (11.0-16.0) 07/24/22 05:28 Plt Count 163 X10*3/uL (160-400) 07/24/22 05:28 MPV 10.8 fL (9.4-12.3) 07/24/22 05:28 Immature Gran % (Auto) 0.3 % (0.0-0.4) 07/24/22 05:28 Neut % (Auto) 74.5 % (45-73) H 07/24/22 05:28 Lymph % (Auto) 14.0 % (20-40) L 07/24/22 05:28 [place] % (Auto) 10.6 % (2-11) 07/24/22 05:28 Eos % (Auto) 0.3 % (0-4) 07/24/22 05:28 Baso % (Auto) 0.3 % (0-2) 07/24/22 05:28 Lymph # (Auto) 2.1 X10*3/uL (1.2-4.9) 07/24/22 05:28 [place] # (Auto) 1.6 X10*3/uL (0.1-1.2) H 07/24/22 05:28 Eos # (Auto) 0.0 X10*3/uL (0.0-0.4) 07/24/22 05:28 Baso # (Auto) 0.0 X10*3/uL (0.0-0.2) 07/24/22 05:28 Abs Immat Gran (auto) 0.05 X10*3/uL (0.00-0.03) H 07/24/22 05:28 Absolute Neuts (auto) 11.2 x10*3/uL (2.0-8.3) H 07/24/22 05:28 Absolute Nucleated RBC 0.000 X10*3/uL (0.0-0.012) 07/24/22 05:28 Nucleated RBC % (auto) 0.0 /100WBC (0.0-0.2) 07/24/22 05:28 Smear Tech's Comments VERIFIED 07/24/22 05:28 PT 11.5 SEC (10.0-13.1) 07/23/22 15:09 INR 1.0 (0.9-1.1) 07/23/22 15:09 Sodium 140 mmol/L (135-145) 07/24/22 05:28 Potassium 4.0 mmol/L (3.3-5.1) 07/24/22 05:28 Chloride 106 mmol/L (96-108) 07/24/22 05:28 Carbon Dioxide 24 mmol/L (22-29) 07/24/22 05:28 Anion Gap 14 (12-20) 07/24/22 05:28 BUN 16 mg/dL (9-16) 07/24/22 05:28 Creatinine 0.81 mg/dL (0.5-1.4) 07/24/22 05:28 Estim Creat Clear Calc 94.0 07/24/22 05:28 Estimated GFR > 60 07/24/22 05:28 POC Glucose 129 mg/dL (60-115) H 07/24/22 13:17 Random Glucose 125 mg/dL (60-115) H 07/24/22 05:28 Calcium 8.9 mg/dL (8.4-10.2) D 07/24/22 05:28 Magnesium 1.8 mg/dL (1.6-2.6) 07/23/22 15:09 Total Bilirubin 1.6 mg/dL (0.0-1.0) H 07/23/22 15:09 AST 24 U/L (5-31) 07/23/22 15:09 ALT 20 U/L (0-31) 07/23/22 15:09 Alkaline Phosphatase 121 U/L (39-117) H 07/23/22 15:09 C-Reactive Protein 6.68 mg/dL (< or = 0.50) H 07/24/22 05:28 Total Protein 7.6 g/dL (6.5-8.0) 07/23/22 15:09 Albumin 4.3 g/dL (3.5-5.0) 07/23/22 15:09 Lipase 11 U/L (8-78) 07/23/22 15:09 Influenza Type A (PCR) NEGATIVE (Negative) 07/23/22 13:12 Influenza Type B (PCR) NEGATIVE (Negative) 07/23/22 13:12 RSV RNA Qual (PCR) NEGATIVE (Negative) 07/23/22 13:12 SARS-CoV-2 RNA (RT-PCR) NEGATIVE (Negative) 07/23/22 13:12 Impressions Chest X-Ray 07/23/22 12:50 IMPRESSION: No acute cardiopulmonary findings. Abdomen/Pelvis CT 07/23/22 17:37 IMPRESSION: Marked wall edema involving the transverse, descending and sigmoid colon with infiltration of the pericolonic fat, suggestive of colitis which may be infectious/inflammatory, with ischemic not excluded however there is no pneumatosis or portal venous gas, and no loss of bowel wall enhancement to favor ischemia. Mesenteric vessels appear grossly patent. Punctate nonobstructing left renal stone. Left kidney is asymmetrically atrophic. Discharge Plan Discharge Anticipated Discharge Date/Time: 07/24/22 14:39 Patient Disposition: Home, Self-Care Discharge Diagnosis: colitis Referrals: Jyoti Ribeiro MD [Physician] - 1 Week Cachorro Arellano MD [Physician] - 1 Week Physician,Andreina J [Primary Care Provider] - 1 Week Discharge Medications: New amoxicillin-pot clavulanate 875-125 mg tablet 1 tab PO BID Qty: 14 0RF Continued pregabalin 300 mg capsule 300 mg PO BID 30 Days Qty: 60 0RF pantoprazole 40 mg tablet,delayed release (DR/EC) 40 mg PO DAILY Qty: 90 3RF lisinopril 40 mg tablet 40 mg PO DAILY 90 Days Qty: 90 1RF amlodipine 5 mg tablet 5 mg PO DAILY Qty: 30 3RF naloxone [Narcan] 4 mg/actuation spray,non-aerosol 4 mg intranasal Q2M PRN (Reason: opioid overdose) 1 Days Qty: 2 1RF Rx Instructions: spray 1 dose into ONE nostril; alternate nostrils w each dose until help arrives clonazepam [Klonopin] 2 mg tablet 2 mg PO BID PRN (Reason: anxiety) atorvastatin 10 mg tablet 10 mg PO BEDTIME metformin 500 mg tablet extended release 24 hr 500 mg PO BID (DME) Shower Chair Misc See Rx Instructions .Route Qty: 1 0RF Rx Instructions: As directed oxycodone [OxyContin] 10 mg tablet,oral only,ext.rel.12 hr 10 mg PO BID 30 Days Qty: 60 0RF Rx Instructions: Partial Fill upon patient request. oxycodone-acetaminophen 5-325 mg tablet 1 tab PO QID PRN (Reason: severe pain (scale score 7-10)) 30 Days Qty: 120 0RF Rx Instructions: Partial Fill upon patient request. Discharge Orders: Discharge Order (Routine); Ordered 07/24/22 Ordered By: Gregory Sims Diet: Advance to usual diet Activity on Discharge: As tolerated Stand Alone Forms: Patient Portal Discharge page Care Plan Goals: recovery from colitis Health Concerns: colitis Plan of Treatment: amoxicillin-clavulanate 875-125 mg twice daily x 7 days, follow up with Dr Ribeiro from GI within 1-2 weeks Please follow up with your primary care doctor within 1 week. Return to the hospital if you experience recurrent or worsening symptoms. Assessment: See Discharge Summary.
--- NOTE | 2022-07-24 15:06 | MHC.CM.PN ---
Patient has been medically cleared for dc to home today, self care.
--- NOTE | 2022-07-24 15:07 | PM.GICN ---
History of Present Illness Data of Consult Service Date: 07/24/22 Primary Care Provider: Unknown Physician HPI This is a 57-year-old female with past medical history of 2 prior admissions for colitis presumed to be from infectious cause as well as a distal sigmoid stricture s/p dilation (Dr Quiroz), who is here for another episode of abdominal pain, nausea, vomiting and diarrhea and was found to abnormal imaging on the CT scan. History was obtained from the patient, who states that the night before admission, she had steak for dinner, overnight developed abdominal cramping with chills, nausea, vomiting. Had watery diarrhea, reports 20 bowel movements which were initially nonbloody and then had blood and clots in it. Next morning, when she called her primary provider, she was advised to come to the emergency room. On initial arrival, she was noted to have tachycardia but with normal pressures. Labs were significant for leukocytosis to 16 with hemoconcentration. Chem 7 was at normal baseline. She also had an elevated CRP of 6.6. A CT abd/pel was also done and personally reviewed: significant edema in transverse colon splenic flexure and descending colon, and then appears to reduce towards sigmoid colon. Currently on evaluation, she reports that her abdominal pain and nausea resolve within 6 hours of presenting to the hospital. Has not had diarrhea since coming in, therefore no stool samples have been collected either. Appetite has returned, and she was tolerating her clear liquids for lunch at the time of evaluation. She reports having FIVE colonoscopies in the year 2021 but is not able to tell me if these were done for ? serial dilation vs incomplete polypectomy versus poor prep. I am not able to see any record of these in [facility]. Were performed by Dr. Quiroz per her report. Most recent colonoscopy available to review is from 2019: Colonic stricture at 20 cm with abnormal vascularity s/p dilation 8-12 mm, with mild bleeding. Remaining colon and terminal ileum normal. Path: Normal. At the level of stricture, there were regenerative changes and stromal fibrosis as is expected with a stricture, without any underlying colitis, dysplasia or carcinoma. Review of Systems Review of Systems: Yes all other systems are reviewed and are negative PMFSH Past Medical History Medical History Anxiety Benign essential hypertension Bilateral knee pain Carpal tunnel syndrome of left wrist Cervical cancer DDD (degenerative disc disease), lumbosacral Degenerative joint disease of left knee Depression Diabetes mellitus Failed back syndrome, lumbar Fatty liver GERD without esophagitis History of renal stone Hx of concussion Knee pain, bilateral Left wrist pain Lumbar degenerative disc disease Morbid obesity with BMI of 40.0-44.9, adult Pure hypercholesterolemia Smoker Tibia fracture Weight loss Family History Family History Father Alzheimer disease Mouth cancer Mother Cancer Medical history unknown Sister No problems noted. Brother No problems noted. Maternal Grandfather HTN (hypertension) Maternal Grandmother HTN (hypertension) Other Mental health problem Surgical History Surgical History History of carpal tunnel release History of carpal tunnel release History of lumbar surgery History of surgery (~1999) Hx of colonoscopy Hx of lithotripsy Previous back surgery Social History Social History Household Members: Children Household Members Other:: 2 daughters Housing: Apartment Do you presently have visiting nurse or other home services: Yes Alcohol intake: never Patient Tobacco Use Status: Current everyday Tobacco user Tobacco use type: Cigarette Cigarettes Per Day: 10 Years Smoked: 20 service: No 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al status: unemployed and disabled 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 worked as a [employer] disabled approx 2012 Meds Allergies Allergy/AdvReac Type Severity Reaction Status Date / Time doxycycline [DOXYCYCLINE] Allergy Severe PALPITATIONS, Verified 07/09/22 10:13 anaphylaxis ibuprofen [IBUPROFEN] Allergy Severe HIVES Verified 07/09/22 10:13 NSAIDS (Non-Steroidal Allergy Severe HIVES Verified 07/09/22 10:13 Anti-Inflamma [NSAIDS (NON-STEROIDAL ANTI-INFLAMMA] cefaclor [From CECLOR] Allergy Intermediate RASH Verified 07/09/22 10:13 acetaminophen [Tylenol] AdvReac Intermediate n/v Verified 07/09/22 10:13 cephalexin [From KEFLEX] AdvReac Intermediate GI UPSET Verified 07/09/22 10:13 codeine [CODEINE] AdvReac Intermediate N/V Verified 07/09/22 10:13 gabapentin [GABAPENTIN] AdvReac Intermediate NAUSEA/VOMI Verified 07/09/22 10:13 TING tolterodine [From DETROL] AdvReac Intermediate PALPITATION Verified 07/09/22 10:13 S Active Medications: Current Medications Acetaminophen (Acetaminophen 325 Mg Tablet) 650 mg PO Q6H PRN PRN Reason: Pain, Mild (Pain Scale 1-3) Last Admin: 07/24/22 13:01 Dose: 650 mg Amlodipine Besylate (Amlodipine Besylate 5 Mg Tablet) 5 mg PO DAILY [facility]; Protocol Last Admin: 07/24/22 12:46 Dose: 5 mg Atorvastatin Calcium (Atorvastatin Calcium 10 Mg Tablet) 10 mg PO BEDTIME CINDY Clonazepam (Clonazepam 1 Mg Tablet) 2 mg PO BID PRN PRN Reason: anxiety Dextrose (Dextrose 50 % 25 Gm/50 Ml Syringe) 25 gm IVPUSH Q15M PRN; Protocol PRN Reason: per Hypoglycemia Standing Ord. Glucose (Glucose Gel 15 Gm Gel..Gram.) 15 gm PO Q15M PRN; Protocol PRN Reason: per Hypoglycemia Standing Ord. Sodium Chloride (Ns) 1,000 mls @ 125 mls/hr IVCONT .Q8H [facility] Last Admin: 07/24/22 10:40 Dose: 125 mls/hr Piperacillin Sod/Tazobactam (Sod 4.5 gm/ Sodium Chloride) 100 mls @ 200 mls/hr IV Q6H [facility] Last Infusion: 07/24/22 11:05 Dose: Infused Insulin Human Lispro (Insulin Lispro 100 Unit/Ml 3 Ml Vial) 0 unit SUBCUT Q6H [facility]; Protocol Last Admin: 07/24/22 14:04 Dose: Not Given Lisinopril (Lisinopril 40 Mg Tablet) 40 mg PO DAILY [facility]; Protocol Last Admin: 07/24/22 12:47 Dose: 40 mg Melatonin (Melatonin 3 Mg Tablet) 6 mg PO BEDTIME PRN PRN Reason: Insomnia Omeprazole (Omeprazole 20 Mg Capsule.Dr) 20 mg PO DAILY [facility] Last Admin: 07/24/22 10:26 Dose: 20 mg Ondansetron HCl (Ondansetron Hcl 4 Mg/2 Ml Vial) 4 mg IVPUSH Q8H PRN PRN Reason: Nausea and Vomiting Oxycodone HCl (Oxycodone Hcl Er 10 Mg Tab.Er.12h) 10 mg PO BID [facility] Last Admin: 07/24/22 12:45 Dose: 10 mg Oxycodone HCl (Oxycodone Hcl Immed Release 5 Mg Tablet) 5 mg PO QID PRN PRN Reason: severe pain (scale score 7-10) Last Admin: 07/24/22 13:01 Dose: 5 mg Pharmacy Consult (Consult Rx Perform Med Rec) 1 each MISCELLANE ONCE PRN PRN Reason: Consult order Pregabalin (Pregabalin 150 Mg Capsule) 300 mg PO BID [facility] Last Admin: 07/24/22 12:38 Dose: 300 mg Sodium Chloride (0.9 % Sodium Chloride Flush 3 Ml Syringe) 3 ml IVFLUSH QSHIFT [facility] Last Admin: 07/24/22 07:57 Dose: Not Given Home Medications Medication Instructions Recorded Confirmed Last Taken Type metformin 500 mg tablet,extended 500 mg PO BID 08/12/21 07/23/22 07/22/22 History release 24 hr atorvastatin 10 mg tablet 10 mg PO BEDTIME 07/23/22 07/23/22 07/22/22 History clonazepam 2 mg tablet (Klonopin) 2 mg PO BID PRN anxiety 07/23/22 07/23/22 Unknown History Physical Exam Vital Signs: Vital Signs: Last Vital Signs Temp 98.5 F 07/24/22 06:14 Pulse 107 H 07/24/22 06:14 Resp 18 07/24/22 06:42 BP 117/63 07/24/22 06:14 Pulse Ox 97 07/24/22 06:14 O2 Del Method 07/24/22 06:14 BMI result Body Mass Index 44.2 Gen appear: No acute distress, well nourished HEENT: no icterus, no cervical lymphadenopathy Chest: No overt resp distress CVS: S1/S2, regular Abd: soft, tender in suprepubic region, nondistended Psych: Stable affect, answering questions appropriately Neuro: A/Ox3 noted to move all extremities spontaneously Ext: no peripheral edema Results Labs 07/24/22 05:28 07/24/22 05:28 Labs: Short CBC 07/23/22 07/24/22 Range/Units 15:09 05:28 WBC 16.2 H 15.0 H (4.8-10.8) X10*3/uL Hgb 13.4 11.5 L (12.0-16.0) g/dl Hct 40.3 34.8 L (37.0-47.0) % Plt Count 201 163 (160-400) X10*3/uL BMP 07/23/22 07/24/22 15:09 05:28 Sodium 142 140 Potassium 4.4 D 4.0 Chloride 106 106 Carbon Dioxide 24 24 BUN 18 H 16 Creatinine 0.86 0.81 Calcium 9.8 D 8.9 D Liver Function 07/23/22 Range/Units 15:09 Total Bilirubin 1.6 H (0.0-1.0) mg/dL AST 24 (5-31) U/L ALT 20 (0-31) U/L Alkaline Phosphatase 121 H (39-117) U/L Albumin 4.3 (3.5-5.0) g/dL Assessment and Plan (1) Colitis: Status: Acute (2) GI bleed: Status: Acute Plan Presented with sudden onset abd pain, N,V and diarrhea with low grade bleeding which has already largely resolved. DDx include infectious vs ischemic colitis. Inflammatory colitis less likely given absence of any background symptoms at baseline and histology findings from colonoscopy 3 years ago. Patient is quite anxious to get discharge, as she has a disabled daughter at home with limited resources for her care in her absence. Okay for discharge since sx have more or less resolved and pt is tolerating diet. Follow up in office will be set up as per her request. Suspect may need further work up to r/o mesenteric insufficiency ashleigh with her background hx of recurrent colitis and benign distal sigmoid stricture. No report of diverticulosis on the colonoscopy or the CT scan and therefore high suspicion for ischemic stricture. She was advised to have records transferred over to inform further eval and management. Thank you for allowing me to participate in her care. Please do not hesitate to reach out for any further questions or concerns. Time Spent With Patient Time: Total time managing care of this patient today ____ minutes. Procedures Date of Service Date of Service: 07/24/22
--- NOTE | 2022-07-24 15:09 | MHC.CM.PN ---
DP: PT HAS BEEN MEDICALLY CLEARED FOR DC HOME, NO SERVICES. RN AWARE. SISTER LALI WILL TRANSPORT HOME.
== END 2022-07-24 15:55 | disposition home or self-care (01) | DRG 392 ==
LOC: HO.ED 20:04 → HO.EDOVER 20:25 → HO.IMC 07-24 12:42
PROVIDERS: Physician Assistant Medical; Admitting Provider Student in an Organized Health Care Education/Training Program; Emergency Provider Emergency Medicine; PCP Internal Medicine; Visit Provider Family Medicine
DX: A09 Infectious gastroenteritis and colitis, unspecified (principal); Z68.41 Body mass index [BMI] 40.0-44.9, adult; K55.1 Chronic vascular disorders of intestine; K92.1 Melena; F41.9 Anxiety disorder, unspecified; F32.A Depression, unspecified; F17.210 Nicotine dependence, cigarettes, uncomplicated; Z71.6 Tobacco abuse counseling; E78.2 Mixed hyperlipidemia; R00.0 Tachycardia, unspecified; I10 Essential (primary) hypertension; G89.29 Other chronic pain; Z20.822 Contact with and (suspected) exposure to COVID-19; Z88.1 Allergy status to other antibiotic agents; Z88.5 Allergy status to narcotic agent; Z88.6 Allergy status to analgesic agent; Z79.84 Long term (current) use of oral hypoglycemic drugs; Z79.891 Long term (current) use of opiate analgesic; Z79.899 Other long term (current) drug therapy
CPT/HCPCS: 0241U; 36415; 71046; 74177; 80048; 80053; 82947; 83690; 83735; 85025; 85610; 86140; 87040; 99285; J1956; J2270; J2543; Q9967

== ENCOUNTER 2022-07-29 12:47 | Emergency (ER) | payer MEDICARE, MEDICAID, SELFPAY ==
[2022-07-29 12:55] VITALS: BP 132/80; PULSE 78; O2SAT 98
[2022-07-29 13:37] VITALS: BP 138/84; PULSE 82; RESP 16; TEMP 36.4; O2SAT 97; BMI 44.2
--- NOTE | 2022-07-29 13:37 | ED.ABDPAIN ---
HPI - Abdominal Pain General Chief Complaint: Abdominal Pain <MURTAZA Molina - Last Filed: 07/29/22 13:45> Stated Complaint: Abd pain since 07/23/22 per EMS <MURTAZA Molina - Last Filed: 07/29/22 13:45> Time Seen by Provider: 07/29/22 16:21 <MURTAZA Molina - Last Filed: 07/29/22 13:45> Source: patient <Britt Alicia MD - Last Filed: 07/29/22 20:30> Mode of arrival: ambulatory <Britt Alicia MD - Last Filed: 07/29/22 20:30> History of Present Illness HPI narrative: 57-year-old female diagnosed with colitis on the of this month, she signed herself out AMA and now returns having been on Augmentin for the past few days (due to finish Wednesday) without nausea or vomiting and denies any fever chills. Patient states that she started having pain 2 days ago. She has not had any further bowel movements since arrival but reports 11 today. <Britt Alicia MD - Last Filed: 07/29/22 20:30> Related Data Home Medications: Home Medications Medication Instructions Recorded Confirmed metformin 500 mg tablet,extended 500 mg PO BID 08/12/21 07/23/22 release 24 hr atorvastatin 10 mg tablet 10 mg PO BEDTIME 07/23/22 07/23/22 clonazepam 2 mg tablet (Klonopin) 2 mg PO BID PRN anxiety 07/23/22 07/23/22 Previous Rx's Medication Instructions Recorded pregabalin 300 mg capsule 300 mg PO BID 30 days #60 caps 06/12/20 pantoprazole 40 mg tablet,delayed 40 mg PO DAILY #90 caps 09/29/20 release lisinopril 40 mg tablet 40 mg PO DAILY 90 days #90 tabs 11/29/20 amlodipine 5 mg tablet 5 mg PO DAILY #30 tabs 12/27/20 naloxone 4 mg/actuation nasal 4 mg intranasal Q2M PRN opioid 11/17/21 spray (Narcan) overdose 1 day #2 ea Shower Chair #1 ea 03/20/22 oxycodone 10 mg tablet,crush 10 mg PO BID pain 30 days #60 tabs 07/09/22 resistant,extended release 12 hr (OxyContin) oxycodone-acetaminophen 5 mg-325 1 tab PO QID PRN severe pain 07/09/22 mg tablet (scale score 7-10) 30 days #120 tabs amoxicillin 875 mg-potassium 1 tab PO BID #14 tabs 07/24/22 clavulanate 125 mg tablet <MURTAZA Molina - Last Filed: 07/29/22 13:45> Allergies/Adverse Reactions: Allergies Allergy/AdvReac Type Severity Reaction Status Date / Time doxycycline [DOXYCYCLINE] Allergy Severe PALPITATIONS, Verified 07/09/22 10:13 anaphylaxis ibuprofen [IBUPROFEN] Allergy Severe HIVES Verified 07/09/22 10:13 NSAIDS (Non-Steroidal Allergy Severe HIVES Verified 07/09/22 10:13 Anti-Inflamma [NSAIDS (NON-STEROIDAL ANTI-INFLAMMA] cefaclor [From CECLOR] Allergy Intermediate RASH Verified 07/09/22 10:13 acetaminophen [Tylenol] AdvReac Intermediate n/v Verified 07/09/22 10:13 cephalexin [From KEFLEX] AdvReac Intermediate GI UPSET Verified 07/09/22 10:13 codeine [CODEINE] AdvReac Intermediate N/V Verified 07/09/22 10:13 gabapentin [GABAPENTIN] AdvReac Intermediate NAUSEA/VOMI Verified 07/09/22 10:13 TING tolterodine [From DETROL] AdvReac Intermediate PALPITATION Verified 07/09/22 10:13 S <MURTAZA Molina - Last Filed: 07/29/22 13:45> Review of Systems Review of Systems Pertinent positives and negatives as stated in HPI <Britt Alicia MD - Last Filed: 07/29/22 20:30> PMFSH Past Medical History Source: nursing notes reviewed <Britt Alicia MD - Last Filed: 07/29/22 20:30> Medical History: Medical History Anxiety Benign essential hypertension Bilateral knee pain Carpal tunnel syndrome of left wrist Cervical cancer DDD (degenerative disc disease), lumbosacral Degenerative joint disease of left knee Depression Diabetes mellitus Failed back syndrome, lumbar Fatty liver GERD without esophagitis History of renal stone Hx of concussion Knee pain, bilateral Left wrist pain Lumbar degenerative disc disease Morbid obesity with BMI of 40.0-44.9, adult Pure hypercholesterolemia Smoker Tibia fracture Weight loss <MURTAZA Molina - Last Filed: 07/29/22 13:45> Surgical History: Surgical History History of carpal tunnel release History of carpal tunnel release History of lumbar surgery History of surgery (~1999) Hx of colonoscopy Hx of lithotripsy Previous back surgery <MURTAZA Molina - Last Filed: 07/29/22 13:45> Family History Family History: Family History Father Alzheimer disease Mouth cancer Mother Cancer Medical history unknown Sister No problems noted. Brother No problems noted. Maternal Grandfather HTN (hypertension) Maternal Grandmother HTN (hypertension) Other Mental health problem <MURTAZA Molina - Last Filed: 07/29/22 13:45> Social History Social History: Social History Household Members: Children Household Members Other:: 2 daughters Housing: Apartment Do you presently have visiting nurse or other home services: Yes Alcohol intake: never Patient Tobacco Use Status: Current everyday Tobacco user Tobacco use type: Cigarette Cigarettes Per Day: 10 Years Smoked: 20 Advance Directives: Yes Advance Directives Information Provided: No Advance Directives on File: No service: No 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al status: unemployed and disabled 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 <MURTAZA Molina - Last Filed: 07/29/22 13:45> Physical Exam ED Vital Signs: Vital Signs - 24 hr 07/29/22 13:37 07/29/22 17:05 07/29/22 18:38 Temperature 97.6 F 98.0 F 97.8 F Pulse Rate 82 69 70 Respiratory Rate 16 15 14 Blood Pressure 138/84 116/74 110/71 Pulse Oximetry 97 98 95 Oxygen Delivery Method Room Air Room Air BMI result Body Mass Index 44.2 <MURTAZA Molina - Last Filed: 07/29/22 13:45> Vital Signs - 24 hr 07/29/22 13:37 07/29/22 17:05 07/29/22 18:38 Temperature 97.6 F 98.0 F 97.8 F Pulse Rate 82 69 70 Respiratory Rate 16 15 14 Blood Pressure 138/84 116/74 110/71 Pulse Oximetry 97 98 95 Oxygen Delivery Method Room Air Room Air BMI result Body Mass Index 44.2 VITAL SIGNS: Reviewed. GENERAL: Well developed, well nourished, in no acute distress. HEAD: Normocephalic/atraumatic EYES: PERRLA, EOMI LUNGS: Normal breath sounds. No adventitious sounds or accessory muscle use. SpO2<97> CARDIOVASCULAR: Regular rate and rhythm without noted murmurs, no JVD or lower extremity edema. ABDOMEN: Soft, mild/diffuse tenderness, non-distended with bowel sounds. MUSCULOSKELETAL: No tenderness, deformities, or effusions noted on gross inspection. EXTREMITIES: No cyanosis, clubbing or edema. SKIN: Inspection of the skin reveals no rashes, pallor NEUROLOGIC: Alert and oriented x 4. Strength and sensation to light touch were grossly intact x 4. <Britt Alicia MD - Last Filed: 07/29/22 20:30> Course Course Course Narrative: RME - 57 yo female with history of colitis, GI bleed, chronic pain on chronic opiates, DM, HTN, anxiety/depression, HLD who presents to the ER via EMS for evaluation of epigastric and right upper abdominal pain x 2 days. Patient was admitted for colitis on 07/23/22 for colitis, left AMA on 07/24/22 as she had no childcare for her special needs child. Reports 10 episodes of diarrhea a day, denies bloody stool. Has been taking augmentin. Denies fevers or vomiting. Labs ordered, will defer repeat imaging for now pending evaluation by provider in the main ER. VSS. Patient is stable to return back to the waiting room until a room becomes avaliable. <MURTAZA Molina - Last Filed: 07/29/22 13:45> Medical Decision Making Medical Decision Making MDM Narrative: 57-year-old female with known colitis presents for abdominal discomfort and multiple episodes of diarrhea. Will obtain basic labs and stool samples as well as UA. I reviewed all investigations in my interpretation is that patient is experiencing antibiotic induced diarrhea, the C diff is negative and GI panel is pending. Will treat patient for UTI. Patient was discharged home in stable condition, afebrile, and instructed to use dietary changes as well as probiotics to help with the diarrhea. I replaced patient's low magnesium with 400 mg of magnesium oxide. <Britt Alicia MD - Last Filed: 07/29/22 20:30> Differential Diagnosis Differential Diagnoses: The differential diagnosis associated with the presentation includes <Britt Alicia MD - Last Filed: 07/29/22 20:30> Please see the discussion above <Britt Alicia MD - Last Filed: 07/29/22 20:30> Lab Data MDM Lab Attestation statement: I reviewed the patient's lab results. <Britt Alicia MD - Last Filed: 07/29/22 20:30> Please see the discussion above <Britt Alicia MD - Last Filed: 07/29/22 20:30> Result Diagrams: 07/29/22 14:08 07/29/22 14:08 <MURTAZA Molina - Last Filed: 07/29/22 13:45> Labs: Lab Results 07/29/22 07/29/22 07/29/22 Range/Units 14:08 14:08 14:08 WBC 8.1 (4.8-10.8) X10*3/uL RBC 4.24 (4.20-5.50) X10*6/uL Hgb 11.8 L (12.0-16.0) g/dl Hct 36.5 L (37.0-47.0) % MCV 86.1 (80.0-98.0) fL MCH 27.8 (27.0-33.0) pg MCHC 32.3 (31.0-35.0) g/dl RDW 13.2 (11.0-16.0) % Plt Count 225 D (160-400) X10*3/uL MPV 10.4 (9.4-12.3) fL Immature Gran % (Auto) 0.9 H (0.0-0.4) % Neut % (Auto) 62.5 (45-73) % Lymph % (Auto) 25.7 (20-40) % [place] % (Auto) 8.7 (2-11) % Eos % (Auto) 1.6 (0-4) % Baso % (Auto) 0.6 (0-2) % Lymph # (Auto) 2.1 (1.2-4.9) X10*3/uL [place] # (Auto) 0.7 (0.1-1.2) X10*3/uL Eos # (Auto) 0.1 (0.0-0.4) X10*3/uL Baso # (Auto) 0.1 (0.0-0.2) X10*3/uL Abs Immat Gran (auto) 0.07 H (0.00-0.03) X10*3/uL Absolute Neuts (auto) 5.1 (2.0-8.3) x10*3/uL Absolute Nucleated RBC 0.000 (0.0-0.012) X10*3/uL Nucleated RBC % (auto) 0.0 (0.0-0.2) /100WBC Sodium 143 (135-145) mmol/L Potassium 4.2 (3.3-5.1) mmol/L Chloride 107 (96-108) mmol/L Carbon Dioxide 28 (22-29) mmol/L Anion Gap 12 (12-20) BUN 11 (9-16) mg/dL Creatinine 0.83 (0.5-1.4) mg/dL Estim Creat Clear Calc 91.7 Estimated GFR > 60 Random Glucose 129 H (60-115) mg/dL Lactic Acid 1.1 (0.5-2.0) mmol/L Calcium 9.4 (8.4-10.2) mg/dL Magnesium 1.5 L (1.6-2.6) mg/dL Total Bilirubin 0.4 (0.0-1.0) mg/dL Direct Bilirubin 0.2 (0.0-0.5) mg/dL AST 15 (5-31) U/L ALT 16 (0-31) U/L Alkaline Phosphatase 109 (39-117) U/L Total Protein 7.2 (6.5-8.0) g/dL Albumin 4.0 (3.5-5.0) g/dL Lipase 16 (8-78) U/L Urine Color Urine Appearance Urine pH (5.0-9.0) Ur Specific [place] (1.005-1.025) Urine Protein (Neg-Trace) mg/dL Urine Glucose (UA) (Negative) mg/dL Urine Ketones (Negative) mg/dL Urine Blood (Negative) Urine Nitrite (Negative) Ur Leukocyte Esterase (Negative) Urine RBC (0-2) /HPF Urine WBC (0-5) /HPF Ur Squamous Epith Cells (0-2) /HPF Urine Bacteria (None Seen) Hyaline Casts (0-2) /LPF C. difficile Tox B Gene (Negative) 07/29/22 07/29/22 Range/Units 17:44 17:45 WBC (4.8-10.8) X10*3/uL RBC (4.20-5.50) X10*6/uL Hgb (12.0-16.0) g/dl Hct (37.0-47.0) % MCV (80.0-98.0) fL MCH (27.0-33.0) pg MCHC (31.0-35.0) g/dl RDW (11.0-16.0) % Plt Count (160-400) X10*3/uL MPV (9.4-12.3) fL Immature Gran % (Auto) (0.0-0.4) % Neut % (Auto) (45-73) % Lymph % (Auto) (20-40) % [place] % (Auto) (2-11) % Eos % (Auto) (0-4) % Baso % (Auto) (0-2) % Lymph # (Auto) (1.2-4.9) X10*3/uL [place] # (Auto) (0.1-1.2) X10*3/uL Eos # (Auto) (0.0-0.4) X10*3/uL Baso # (Auto) (0.0-0.2) X10*3/uL Abs Immat Gran (auto) (0.00-0.03) X10*3/uL Absolute Neuts (auto) (2.0-8.3) x10*3/uL Absolute Nucleated RBC (0.0-0.012) X10*3/uL Nucleated RBC % (auto) (0.0-0.2) /100WBC Sodium (135-145) mmol/L Potassium (3.3-5.1) mmol/L Chloride (96-108) mmol/L Carbon Dioxide (22-29) mmol/L Anion Gap (12-20) BUN (9-16) mg/dL Creatinine (0.5-1.4) mg/dL Estim Creat Clear Calc Estimated GFR Random Glucose (60-115) mg/dL Lactic Acid (0.5-2.0) mmol/L Calcium (8.4-10.2) mg/dL Magnesium (1.6-2.6) mg/dL Total Bilirubin (0.0-1.0) mg/dL Direct Bilirubin (0.0-0.5) mg/dL AST (5-31) U/L ALT (0-31) U/L Alkaline Phosphatase (39-117) U/L Total Protein (6.5-8.0) g/dL Albumin (3.5-5.0) g/dL Lipase (8-78) U/L Urine Color Yellow Urine Appearance Clear Urine pH 7.0 (5.0-9.0) Ur Specific [place] 1.020 (1.005-1.025) Urine Protein Negative (Neg-Trace) mg/dL Urine Glucose (UA) Negative (Negative) mg/dL Urine Ketones Negative (Negative) mg/dL Urine Blood Negative (Negative) Urine Nitrite Negative (Negative) Ur Leukocyte Esterase Small (1+) H (Negative) Urine RBC 3-5 H (0-2) /HPF Urine WBC 6-10 H (0-5) /HPF Ur Squamous Epith Cells 0-2 (0-2) /HPF Urine Bacteria None Seen (None Seen) Hyaline Casts 0-2 (0-2) /LPF C. difficile Tox B Gene NEGATIVE (Negative) <MURTAZA Molina - Last Filed: 07/29/22 13:45> Lab Results 07/29/22 07/29/22 07/29/22 Range/Units 14:08 14:08 14:08 WBC 8.1 (4.8-10.8) X10*3/uL RBC 4.24 (4.20-5.50) X10*6/uL Hgb 11.8 L (12.0-16.0) g/dl Hct 36.5 L (37.0-47.0) % MCV 86.1 (80.0-98.0) fL MCH 27.8 (27.0-33.0) pg MCHC 32.3 (31.0-35.0) g/dl RDW 13.2 (11.0-16.0) % Plt Count 225 D (160-400) X10*3/uL MPV 10.4 (9.4-12.3) fL Immature Gran % (Auto) 0.9 H (0.0-0.4) % Neut % (Auto) 62.5 (45-73) % Lymph % (Auto) 25.7 (20-40) % [place] % (Auto) 8.7 (2-11) % Eos % (Auto) 1.6 (0-4) % Baso % (Auto) 0.6 (0-2) % Lymph # (Auto) 2.1 (1.2-4.9) X10*3/uL [place] # (Auto) 0.7 (0.1-1.2) X10*3/uL Eos # (Auto) 0.1 (0.0-0.4) X10*3/uL Baso # (Auto) 0.1 (0.0-0.2) X10*3/uL Abs Immat Gran (auto) 0.07 H (0.00-0.03) X10*3/uL Absolute Neuts (auto) 5.1 (2.0-8.3) x10*3/uL Absolute Nucleated RBC 0.000 (0.0-0.012) X10*3/uL Nucleated RBC % (auto) 0.0 (0.0-0.2) /100WBC Sodium 143 (135-145) mmol/L Potassium 4.2 (3.3-5.1) mmol/L Chloride 107 (96-108) mmol/L Carbon Dioxide 28 (22-29) mmol/L Anion Gap 12 (12-20) BUN 11 (9-16) mg/dL Creatinine 0.83 (0.5-1.4) mg/dL Estim Creat Clear Calc 91.7 Estimated GFR > 60 Random Glucose 129 H (60-115) mg/dL Lactic Acid 1.1 (0.5-2.0) mmol/L Calcium 9.4 (8.4-10.2) mg/dL Magnesium 1.5 L (1.6-2.6) mg/dL Total Bilirubin 0.4 (0.0-1.0) mg/dL Direct Bilirubin 0.2 (0.0-0.5) mg/dL AST 15 (5-31) U/L ALT 16 (0-31) U/L Alkaline Phosphatase 109 (39-117) U/L Total Protein 7.2 (6.5-8.0) g/dL Albumin 4.0 (3.5-5.0) g/dL Lipase 16 (8-78) U/L Urine Color Urine Appearance Urine pH (5.0-9.0) Ur Specific [place] (1.005-1.025) Urine Protein (Neg-Trace) mg/dL Urine Glucose (UA) (Negative) mg/dL Urine Ketones (Negative) mg/dL Urine Blood (Negative) Urine Nitrite (Negative) Ur Leukocyte Esterase (Negative) Urine RBC (0-2) /HPF Urine WBC (0-5) /HPF Ur Squamous Epith Cells (0-2) /HPF Urine Bacteria (None Seen) Hyaline Casts (0-2) /LPF C. difficile Tox B Gene (Negative) 07/29/22 07/29/22 Range/Units 17:44 17:45 WBC (4.8-10.8) X10*3/uL RBC (4.20-5.50) X10*6/uL Hgb (12.0-16.0) g/dl Hct (37.0-47.0) % MCV (80.0-98.0) fL MCH (27.0-33.0) pg MCHC (31.0-35.0) g/dl RDW (11.0-16.0) % Plt Count (160-400) X10*3/uL MPV (9.4-12.3) fL Immature Gran % (Auto) (0.0-0.4) % Neut % (Auto) (45-73) % Lymph % (Auto) (20-40) % [place] % (Auto) (2-11) % Eos % (Auto) (0-4) % Baso % (Auto) (0-2) % Lymph # (Auto) (1.2-4.9) X10*3/uL [place] # (Auto) (0.1-1.2) X10*3/uL Eos # (Auto) (0.0-0.4) X10*3/uL Baso # (Auto) (0.0-0.2) X10*3/uL Abs Immat Gran (auto) (0.00-0.03) X10*3/uL Absolute Neuts (auto) (2.0-8.3) x10*3/uL Absolute Nucleated RBC (0.0-0.012) X10*3/uL Nucleated RBC % (auto) (0.0-0.2) /100WBC Sodium (135-145) mmol/L Potassium (3.3-5.1) mmol/L Chloride (96-108) mmol/L Carbon Dioxide (22-29) mmol/L Anion Gap (12-20) BUN (9-16) mg/dL Creatinine (0.5-1.4) mg/dL Estim Creat Clear Calc Estimated GFR Random Glucose (60-115) mg/dL Lactic Acid (0.5-2.0) mmol/L Calcium (8.4-10.2) mg/dL Magnesium (1.6-2.6) mg/dL Total Bilirubin (0.0-1.0) mg/dL Direct Bilirubin (0.0-0.5) mg/dL AST (5-31) U/L ALT (0-31) U/L Alkaline Phosphatase (39-117) U/L Total Protein (6.5-8.0) g/dL Albumin (3.5-5.0) g/dL Lipase (8-78) U/L Urine Color Yellow Urine Appearance Clear Urine pH 7.0 (5.0-9.0) Ur Specific [place] 1.020 (1.005-1.025) Urine Protein Negative (Neg-Trace) mg/dL Urine Glucose (UA) Negative (Negative) mg/dL Urine Ketones Negative (Negative) mg/dL Urine Blood Negative (Negative) Urine Nitrite Negative (Negative) Ur Leukocyte Esterase Small (1+) H (Negative) Urine RBC 3-5 H (0-2) /HPF Urine WBC 6-10 H (0-5) /HPF Ur Squamous Epith Cells 0-2 (0-2) /HPF Urine Bacteria None Seen (None Seen) Hyaline Casts 0-2 (0-2) /LPF C. difficile Tox B Gene NEGATIVE (Negative) <Britt Alicia MD - Last Filed: 07/29/22 20:30> Medications Administered Discontinued Medications Generic Name Dose Route Start Last Admin Trade Name Freq PRN Reason Stop Dose Admin Magnesium Oxide 400 mg 07/29/22 16:33 07/29/22 16:51 Magnesium Oxide 400 Mg Tablet PO 07/29/22 16:34 400 mg ONCE ONE Administration <MURTAZA Molina - Last Filed: 07/29/22 13:45> Medications Administered Discontinued Medications Generic Name Dose Route Start Last Admin Trade Name Freq PRN Reason Stop Dose Admin Magnesium Oxide 400 mg 07/29/22 16:33 07/29/22 16:51 Magnesium Oxide 400 Mg Tablet PO 07/29/22 16:34 400 mg ONCE ONE Administration <Britt Alicia MD - Last Filed: 07/29/22 20:30> Discharge Plan Discharge Clinical Impression: Antibiotic-associated diarrhea, UTI (urinary tract infection) <MURTAZA Molina - Last Filed: 07/29/22 13:45> Patient Disposition: Home, Self-Care <MURTAZA Molina - Last Filed: 07/29/22 13:45> Instructions: Acute Diarrhea (ED), Urinary Tract Infection in Women (ED), Nutrition Tips for Relief of Diarrhea (ED) <MURTAZA Molina - Last Filed: 07/29/22 13:45> Additional Instructions: 1. Resume all home medications as prescribed. 2. Continue to complete the entire course of antibiotics as prescribed. I recommend that you begin taking probiotics, [id number], these are usually readily available up near the pharmacy area. In addition, please review the dietary recommendations for using foods that typically will firm up your stool. Within the next 12 hours if you have not noticed that the diarrheal episodes have improved I recommend that you use [id number] Imodium, 1 pill. 3. Follow-up with your primary care provider in the next 1-2 days for re-evaluation and further outpatient management. Your primary care provider will need to follow-up on the GI panel. However, I suspect that this is related to the antibiotics. Return to the ER for any worsening or new symptoms. <MURTAZA Molina - Last Filed: 07/29/22 13:45> Prescriptions: No Action pregabalin 300 mg capsule 300 mg PO BID 30 Days Qty: 60 0RF pantoprazole 40 mg tablet,delayed release (DR/EC) 40 mg PO DAILY Qty: 90 3RF lisinopril 40 mg tablet 40 mg PO DAILY 90 Days Qty: 90 1RF amlodipine 5 mg tablet 5 mg PO DAILY Qty: 30 3RF naloxone [Narcan] 4 mg/actuation spray,non-aerosol 4 mg intranasal Q2M PRN (Reason: opioid overdose) 1 Days Qty: 2 1RF Rx Instructions: spray 1 dose into ONE nostril; alternate nostrils w each dose until help arrives clonazepam [Klonopin] 2 mg tablet 2 mg PO BID PRN (Reason: anxiety) atorvastatin 10 mg tablet 10 mg PO BEDTIME amoxicillin-pot clavulanate 875-125 mg tablet 1 tab PO BID Qty: 14 0RF metformin 500 mg tablet extended release 24 hr 500 mg PO BID (DME) Shower Chair Misc See Rx Instructions .Route Qty: 1 0RF Rx Instructions: As directed oxycodone [OxyContin] 10 mg tablet,oral only,ext.rel.12 hr 10 mg PO BID 30 Days Qty: 60 0RF Rx Instructions: Partial Fill upon patient request. oxycodone-acetaminophen 5-325 mg tablet 1 tab PO QID PRN (Reason: severe pain (scale score 7-10)) 30 Days Qty: 120 0RF Rx Instructions: Partial Fill upon patient request. <MURTAZA Molina - Last Filed: 07/29/22 13:45> Referrals: Cachorro Arellano MD [Primary Care Provider] - <MURTAZA Molina - Last Filed: 07/29/22 13:45>
[2022-07-29 14:16] LABS: MANUAL DIFF FLAG NO
[2022-07-29 14:18] LABS: Basophils Absolute Auto 0.1 X10*3/uL (0.0-0.2); Basophils Percent Auto 0.6 % (0-2); Eosinophils Absolute Auto 0.1 X10*3/uL (0.0-0.4); Eosinophils Percent Auto 1.6 % (0-4); Hematocrit 36.5 % (37.0-47.0); Hemoglobin 11.8 g/dl (12.0-16.0); Imm Gran Abs Auto 0.07 X10*3/uL (0.00-0.03); Imm Gran Pct Auto 0.9 % (0.0-0.4); Lymphocytes Absolute Auto 2.1 X10*3/uL (1.2-4.9); Lymphocytes Percent Auto 25.7 % (20-40); Mean Corpuscular HGB Conc 32.3 g/dl (31.0-35.0); Mean Corpuscular Hemoglobin 27.8 pg (27.0-33.0); Mean Corpuscular Volume 86.1 fL (80.0-98.0); Mean Platelet Volume 10.4 fL (9.4-12.3); Monocytes Absolute Auto 0.7 X10*3/uL (0.1-1.2); Monocytes Percent Auto 8.7 % (2-11); Neutrophils Absolute Auto 5.1 x10*3/uL (2.0-8.3); Neutrophils Percent Auto 62.5 % (45-73); Platelet Count 225 X10*3/uL (160-400); Red Blood Count 4.24 X10*6/uL (4.20-5.50); Red Cell Distribution Width 13.2 % (11.0-16.0); White Blood Count 8.1 X10*3/uL (4.8-10.8)
[2022-07-29 14:35] LABS: Lactic Acid 1.1 mmol/L (0.5-2.0)
[2022-07-29 14:38] LABS: Alanine Aminotransferase 16 U/L (0-31); Alkaline Phosphatase 109 U/L (39-117); Anion Gap 12 (12-20); Aspartate Amino Transferase 15 U/L (5-31); Bilirubin Direct 0.2 mg/dL (0.0-0.5); Bilirubin Total 0.4 mg/dL (0.0-1.0); Blood Urea Nitrogen 11 mg/dL (9-16); Calcium 9.4 mg/dL (8.4-10.2); Carbon Dioxide 28 mmol/L (22-29); Chloride 107 mmol/L (96-108); Creatinine Clr Calc Pharmacy 91.7; Estimated Glomerular Filt Rate > 60; Glucose Random 129 mg/dL (60-115); Lipase 16 U/L (8-78); Magnesium 1.5 mg/dL (1.6-2.6); Potassium 4.2 mmol/L (3.3-5.1); Sodium 143 mmol/L (135-145); Total Protein 7.2 g/dL (6.5-8.0)
[2022-07-29] MEDS: Magnesium Oxide 400 MG TABLET PO (16:51)
[2022-07-29 17:05] VITALS: BP 116/74; PULSE 69; RESP 15; TEMP 36.7; O2SAT 98
[2022-07-29 18:04] LABS: Appearance Urine Clear; Color Urine Yellow; Glucose Urine UA Negative (Negative); Leukocyte Esterase Urine Small (1+) (Negative); Nitrite Urine Negative (Negative); UMIC TRIGGER UACC YES; Urine Blood Negative (Negative); Urine Ketones Negative (Negative); Urine Protein Negative (Neg-Trace)
[2022-07-29 18:37] LABS: Bacteria Urine None Seen (None Seen); Hyaline Casts Urine 0-2 /LPF (0-2); Squamous Epithelial Cell Urine 0-2 /HPF (0-2); UACC Culture Trigger YES
[2022-07-29 18:38] VITALS: BP 110/71; PULSE 70; RESP 14; TEMP 36.6; O2SAT 95
[2022-07-29 18:53] LABS: CDiff Gene PCR NEGATIVE (Negative)
--- NOTE | 2022-07-29 20:08 | PC.NURSE ---
patient reports feeling better. I feel like a million dollars and I'm hungry . Wants to go home and doesn't have a ride until the am. This RN to CHECK IN with MD for update on plan of care. lASt had PO solids 2 days ago.
--- NOTE | 2022-07-29 20:55 | PC.NURSE ---
Pt refusing medications, states there's nothing wrong with me, I don't need it!
[2022-07-30 12:41] LABS: Campylobacter Not Detected (Not Detect.); Cryptosporidium Not Detected (Not Detect.); Cyclospora cayetanensis Not Detected (Not Detect.); E. coli EAEC Not Detected (Not Detect.); E. coli EPEC Not Detected (Not Detect.); E. coli ETEC Not Detected (Not Detect.); E. coli STEC Not Detected (Not Detect.); Entamoeba histolytica Not Detected (Not Detect.); Plesiomonas shigelloides Not Detected (Not Detect.); Salmonella Not Detected (Not Detect.); Shigella sp./EIEC Not Detected (Not Detect.); Vibrio Not Detected (Not Detect.); Vibrio Cholerae Not Detected (Not Detect.); Yersinia enterocolitica Not Detected (Not Detect.)
[2022-07-30 12:42] LABS: Adenovirus F 40/41 Not Detected (Not Detect.); Astrovirus Not Detected (Not Detect.); Giardia lamblia Not Detected (Not Detect.); Norovirus GI/GII Not Detected (Not Detect.); Rotavirus A Not Detected (Not Detect.); Sapovirus Not Detected (Not Detect.)
== END 2022-07-29 21:00 | disposition home or self-care (01) ==
PROVIDERS: Physician Assistant; Emergency Provider Student in an Organized Health Care Education/Training Program; PCP Internal Medicine
DX: N39.0 Urinary tract infection, site not specified (principal); K52.1 Toxic gastroenteritis and colitis; T36.95XA Adverse effect of unspecified systemic antibiotic, initial encounter; Y92.9 Unspecified place or not applicable; Z20.822 Contact with and (suspected) exposure to COVID-19; Z20.828 Contact with and (suspected) exposure to other viral communicable diseases; Z79.899 Other long term (current) drug therapy
CPT/HCPCS: 36415; 80048; 80076; 81001; 83605; 83690; 83735; 85025; 87086; 87493; 87507; 99283

== ENCOUNTER → 2022-08-07 10:00 | Outpatient (BNVA) | payer MEDICARE, MEDICAID, SELFPAY | PROVIDERS: PCP Internal Medicine; Visit Provider Nurse Practitioner Family | DX: Z51.81 Encounter for therapeutic drug level monitoring (principal); F11.20 Opioid dependence, uncomplicated; M17.0 Bilateral primary osteoarthritis of knee; M96.1 Postlaminectomy syndrome, not elsewhere classified; M51.36 Other intervertebral disc degeneration, lumbar region; G89.4 Chronic pain syndrome | CPT/HCPCS: 99212 ==

== ENCOUNTER → 2022-09-04 09:58 | Outpatient (BNVA) | payer MEDICARE, MEDICAID, SELFPAY | PROVIDERS: PCP Internal Medicine; Visit Provider Nurse Practitioner Family | DX: Z51.81 Encounter for therapeutic drug level monitoring (principal); F11.20 Opioid dependence, uncomplicated; M17.0 Bilateral primary osteoarthritis of knee; M96.1 Postlaminectomy syndrome, not elsewhere classified; M51.36 Other intervertebral disc degeneration, lumbar region; G89.4 Chronic pain syndrome | CPT/HCPCS: 99212 ==

== ENCOUNTER → 2022-10-01 09:57 | Outpatient (BNVA) | payer MEDICARE, MEDICAID, SELFPAY | PROVIDERS: PCP Internal Medicine; Visit Provider Nurse Practitioner Family | DX: Z51.81 Encounter for therapeutic drug level monitoring (principal); F11.20 Opioid dependence, uncomplicated; M17.0 Bilateral primary osteoarthritis of knee; M96.1 Postlaminectomy syndrome, not elsewhere classified; M51.36 Other intervertebral disc degeneration, lumbar region; G89.4 Chronic pain syndrome | CPT/HCPCS: 99212 ==

== ENCOUNTER → 2022-10-26 10:10 | Outpatient (BNVA) | payer MEDICARE, MEDICAID, SELFPAY | PROVIDERS: PCP Internal Medicine; Visit Provider Nurse Practitioner Family | DX: G89.4 Chronic pain syndrome (principal); M96.1 Postlaminectomy syndrome, not elsewhere classified; M51.36 Other intervertebral disc degeneration, lumbar region; M17.0 Bilateral primary osteoarthritis of knee; Z79.891 Long term (current) use of opiate analgesic | CPT/HCPCS: 99212 ==

== ENCOUNTER 2023-02-04 11:05 | Outpatient (AMB) | payer MEDICARE, MEDICAID, SELFPAY ==
--- NOTE | 2023-02-04 11:34 | A.SPINEOV_ITS ---
Intake Intake Visit Reasons: Sciatica nerve Intake Note: Ms. Rodríguez is here today c/o left sided low back pain. Data Integrity Consultant Required: No Allergies doxycycline [DOXYCYCLINE] Allergy (Severe, Verified 09/04/22 10:13) PALPITATIONS, anaphylaxis ibuprofen [IBUPROFEN] Allergy (Severe, Verified 09/04/22 10:13) HIVES NSAIDS (Non-Steroidal Anti-Inflamma [NSAIDS (NON-STEROIDAL ANTI-INFLAMMA] Allergy (Severe, Verified 09/04/22 10:13) HIVES cefaclor [From CECLOR] Allergy (Intermediate, Verified 09/04/22 10:13) RASH acetaminophen [Tylenol] Adverse Reaction (Intermediate, Verified 09/04/22 10:13) n/v cephalexin [From KEFLEX] Adverse Reaction (Intermediate, Verified 09/04/22 10:13) GI UPSET codeine [CODEINE] Adverse Reaction (Intermediate, Verified 09/04/22 10:13) N/V gabapentin [GABAPENTIN] Adverse Reaction (Intermediate, Verified 09/04/22 10:13) NAUSEA/VOMITING tolterodine [From DETROL] Adverse Reaction (Intermediate, Verified 09/04/22 10:13) PALPITATIONS Assessment & Plan Assessment & Plan (1) Lumbar disc herniation: Code(s): M51.26 - Other intervertebral disc displacement, lumbar region Plan: Mrs Rodríguez is here in follow-up today. She underwent an L3-4 minimally invasive trans K[place]in lumbar interbody fusion back in 2019. She had a previous L4-5, L5-S1 fusion done previous to that at an outside institution. She had been doing well with on and off back pain, but 2 weeks ago she was on vacation and lifted luggage and immediately felt a pop in her lower back with pain going down into her left anterior thigh. She has been limping around, taking Tylenol without much relief. She reports some weakness in her left leg and a lot of difficulty walking. She cannot take nonsteroidal anti-inflammatories. She has not used any narcotics. She is allergic to gabapentin. On my exam she is very uncomfortable and is walking with an antalgic gait. She does have weakness of her left iliopsoas which I would rate as 4-5. Positive straight leg raise at about 20 degrees. A lot of pain with movement of her left leg. Right lower extremity strength is normal. Reflexes absent bilaterally. Impression: I suspect this patient has herniated disc above her fusion at L2-3 given the dermatomal distribution in the acute onset. She has been trying Tylenol [id number] for the last few weeks as well as resting and activity modifications. I would otherwise order a Medrol Dosepak for her, but she has no diabetes supplies a home to check her blood sugar so I do not want a center into hyperglycemia. I would like to get a lumbar MRI to rule out herniated disc. Total amount of time spent in this visit was 20 minutes in discussion of symptoms, ordering imaging and subsequent plan of care Senthil Coleman MD,PhD [facility] Orders: Orders MR lumbar spine wo con Today M51.26 - Other intervertebral disc displacement, lumbar region Coding Level of Care Code Est Pt Level 3 (49464) Diagnoses Lumbar disc herniation M51.26
== END 2023-02-04 12:03 | disposition home or self-care (01) ==
PROVIDERS: PCP Internal Medicine; Visit Provider Physician Assistant
DX: M51.26 Other intervertebral disc displacement, lumbar region (principal)
CPT/HCPCS: 99213

== ENCOUNTER → 2023-02-04 11:05 | Outpatient (BNVA) | payer MEDICARE, MEDICAID, SELFPAY | PROVIDERS: PCP Internal Medicine; Visit Provider Physician Assistant | DX: M51.26 Other intervertebral disc displacement, lumbar region (principal); Z98.1 Arthrodesis status | CPT/HCPCS: 99212 ==

== ENCOUNTER 2023-02-25 10:28 | Outpatient (REF) | payer MEDICARE, MEDICAID, SELFPAY ==
--- NOTE | ~2023-02-25 | MR_ITS ---
MR LUMBAR SPINE WITHOUT CONTRAST CLINICAL INFORMATION: Intervertebral disc displacement/lumbar region. COMPARISON: Lumbar spine MRI 07/28/2019. TECHNIQUE: MRI of the lumbar spine was obtained using routine sequences without contrast. FINDINGS: There are postoperative changes following posterior instrumented lumbar interbody fusion at L3-L4 and interbody cage placement at L4-L5 and L5-S1. There is new grade 1 retrolisthesis of L2 on L3. There is moderate disc volume loss at L2-L3. There is disc desiccation at L1-L2 and L2-L3. There Modic 1 marrow signal changes at L2-L3. There is no additional bone marrow edema. There are no acute fractures. Conus terminates at the L1 level. Left renal atrophy. Small bilateral renal cysts for which no further imaging follow-up is warranted. L1-L2: A new shallow left paracentral/left lateral disc protrusion results in mild posterior deflection of the traversing left L2 nerve root within the left subarticular zone and worsening moderate left-sided foraminal stenosis. No central canal and no right foraminal stenosis. L2-L3: New grade 1 retrolisthesis. New diffuse annular disc bulge with superimposed left greater than right paracentral/lateral disc protrusions that along with progressive severe facet arthropathy and ligamentum flavum thickening result in worsening moderate central canal stenosis, severe bilateral subarticular zone stenosis with compression of the traversing L3 nerve roots bilaterally, and the new left lateral disc protrusion results in severe left-sided foraminal stenosis with compression of the foraminal segment of the exiting left L2 nerve root. L3-L4: Postoperative changes following posterior instrumented lumbar interbody fusion. No central canal stenosis. Osteophytic ridging results in mild bilateral foraminal encroachment. L4-L5: Postoperative changes following interbody cage placement. Left paracentral osteophytic ridging mildly narrows the left subarticular zone. Severe bilateral facet arthropathy. No central canal stenosis. Mild foraminal encroachment bilaterally. L5-S1: Postoperative changes following interbody cage placement. Diffuse osteophytic ridging and severe bilateral facet arthropathy. No central canal stenosis. There is moderate left-sided foraminal stenosis with mild mass effect on the exiting left L5 nerve root. MR/MR lumbar spine wo con IMPRESSION: - At L1-L2, a new shallow left paracentral/left lateral disc protrusion results in mild posterior deflection of the traversing left L2 nerve root within the left subarticular zone and worsening moderate left-sided foraminal stenosis. - At the junctional L2-L3 level, new grade 1 retrolisthesis and progressive advanced multifactorial degenerative changes result in worsening moderate central canal stenosis, severe bilateral subarticular zone stenosis with compression of the traversing L3 nerve roots bilaterally, and the new left lateral disc protrusion results in severe left-sided foraminal stenosis with compression of the foraminal segment of the exiting left L2 nerve root. Modic type I marrow signal changes at L2 and L3. - There are postoperative changes following posterior instrumented lumbar interbody fusion at L3-L4 and interbody cage placement at L4-L5 and L5-S1. At L5-S1, left lateral osteophytic ridging and facet arthropathy result in similar moderate left-sided foraminal stenosis with mild mass effect on the exiting left L5 nerve root. There is no significant central canal stenosis at the postoperative levels. - There is left renal atrophy.
== END 2023-02-25 10:29 | disposition home or self-care (01) ==
LOC: HO.MRI 10:28
PROVIDERS: PCP Internal Medicine; Visit Provider Physician Assistant
DX: M51.26 Other intervertebral disc displacement, lumbar region (principal)
CPT/HCPCS: 72148

== ENCOUNTER 2023-04-28 11:12 | Outpatient (AMB) | payer MEDICARE, MEDICAID, SELFPAY ==
--- NOTE | 2023-04-28 12:28 | HO.SPINEOV ---
Intake Intake Visit Reasons: Discuss surgery Allergies doxycycline [DOXYCYCLINE] Allergy (Severe, Verified 09/04/22 10:13) PALPITATIONS, anaphylaxis ibuprofen [IBUPROFEN] Allergy (Severe, Verified 09/04/22 10:13) HIVES NSAIDS (Non-Steroidal Anti-Inflamma [NSAIDS (NON-STEROIDAL ANTI-INFLAMMA] Allergy (Severe, Verified 09/04/22 10:13) HIVES cefaclor [From CECLOR] Allergy (Intermediate, Verified 09/04/22 10:13) RASH acetaminophen [Tylenol] Adverse Reaction (Intermediate, Verified 09/04/22 10:13) n/v cephalexin [From KEFLEX] Adverse Reaction (Intermediate, Verified 09/04/22 10:13) GI UPSET codeine [CODEINE] Adverse Reaction (Intermediate, Verified 09/04/22 10:13) N/V gabapentin [GABAPENTIN] Adverse Reaction (Intermediate, Verified 09/04/22 10:13) NAUSEA/VOMITING tolterodine [From DETROL] Adverse Reaction (Intermediate, Verified 09/04/22 10:13) PALPITATIONS Assessment & Plan Assessment & Plan (1) Adjacent segment disease of lumbar spine with history of fusion procedure: Code(s): M51.36 - Other intervertebral disc degeneration, lumbar region; Z98.1 - Arthrodesis status (2) Lumbar disc herniation: Code(s): M51.26 - Other intervertebral disc displacement, lumbar region Plan Dear colleague, On 04/28/2023 I saw for preoperative visit Britt Rodríguez. She had previous L3-S1 lumbar fusion done and presented with acute severe left leg pain. A new MRI shows a L2-3 degenerative disc with a disc herniation compromising the left L2 and L3 nerve roots. In addition there significant Modic changes and a retrolisthesis L2-L3. She she was originally scheduled for an L2-3 lumbar microdiskectomy but upon reviewing the imaging again I think this would set her up for failure as the MRI clearly demonstrates signs of instability at L2-3 in addition to a large disc herniation. Therefore I changed the procedure to a oblique lateral lumbar interbody fusion L2-3 with revision of the posterior instrumentation L2-L4 and removal of the disc herniation. The procedure is scheduled for the beginning of July. I hope that the primary care physician can provide some pain management until the day of surgery. I spent 30 minutes in his consult discussing the surgical plan and answering questions. Thank you for letting me take care of your patient. Ty Coleman MD, PhD Spine Fellowship Trained Neurosurgeon Director, [facility] Coding Level of Care Code Est Pt Level 4 (74151) Diagnoses Adjacent segment disease of lumbar spine with history of fusion procedure M51.36; Z98.1 Lumbar disc herniation M51.26
== END 2023-04-28 12:15 | disposition home or self-care (01) ==
PROVIDERS: PCP Internal Medicine; Visit Provider Neurological Surgery
DX: M51.36 Other intervertebral disc degeneration, lumbar region (principal); Z98.1 Arthrodesis status; M51.26 Other intervertebral disc displacement, lumbar region
CPT/HCPCS: 99214

== ENCOUNTER → 2023-04-28 11:12 | Outpatient (BNVA) | payer MEDICARE, MEDICAID, SELFPAY | PROVIDERS: PCP Internal Medicine; Visit Provider Neurological Surgery | DX: M51.36 Other intervertebral disc degeneration, lumbar region (principal); M51.26 Other intervertebral disc displacement, lumbar region; Z98.1 Arthrodesis status | CPT/HCPCS: 99212 ==

== ENCOUNTER → 2023-06-18 10:46 | Outpatient (BNV) | payer MEDICARE, MEDICAID, SELFPAY | PROVIDERS: PCP Nurse Practitioner Family; Visit Provider Internal Medicine Cardiovascular Disease | DX: I49.1 Atrial premature depolarization (principal); R94.31 Abnormal electrocardiogram [ECG] [EKG] | CPT/HCPCS: 93010 ==

== ENCOUNTER 2023-07-12 08:23 | Inpatient (IN) | payer MEDICARE, MEDICAID, SELFPAY ==
--- NOTE | 2023-06-18 | ECG_ITS ---
Test Reason : PRE OP Blood Pressure : / mmHG Vent. Rate : 059 BPM Atrial Rate : 059 BPM P-R Int : 204 ms QRS Dur : 106 ms QT Int : 452 ms P-R-T Axes : 054 -29 015 degrees QTc Int : 447 ms Sinus bradycardia with Premature atrial complexes Nonspecific T wave abnormality Abnormal ECG When compared with ECG of 03-MAR-2012 08:54, Premature atrial complexes are now Present Nonspecific T wave abnormality, worse in Anterolateral leads Referred By: Toshia Samaniego Electronically Signed By:CHELO GUERRA MD
[2023-06-18 10:03] VITALS: BP 143/70; PULSE 71; RESP 16; O2SAT 96; BMI 35.8
[2023-07-12] VITALS (15 sets, daily range): BP systolic 104–146; BP diastolic 57–84; PULSE 65–84; RESP 13–18; TEMP 36.1–36.7; O2SAT 94–99; BMI 35.0; BMI 37.0; BMI 36.0
--- NOTE | ~2023-07-12 | FL_ITS ---
EXAMINATION: XR FLUOROSCOPY WITH IMAGES CLINICAL INFORMATION: L2-L3 transforaminal lumbar interbody fusion. COMPARISON: Portions of the MRI lumbar spine dated 02/25/2023. TECHNIQUE: Fluoroscopy Supervised By: Dr. Aneesh Coleman. Fluoroscopy Time: 1.3. Cumulative Dose: 107.4 mGy. DAP: 1.75 Gycm2. Images: 2. FINDINGS: The submitted images show posterior fixator rods, pedicular screws and a disc spacer at the L2-L3 level. A disc spacer is seen at L3-L4, and there are intervertebral cages at L4-L5. FL/FL guidance in OR IMPRESSION: Intraoperative fluoroscopic guidance is provided during L2-L3 transforaminal lumbar interbody fusion. Please see the patient's Operative Report for full procedural details.
--- NOTE | 2023-07-12 06:55 | MHC.SHP ---
Pre-Procedural Eval Section A - 24 Hr Update-Section A only Date of Service: 07/12/23 The patient is an INPATIENT: No Changes since office visit: No Cold of Flu in the past 2 weeks, No New Medical Problems, No Changes in Medication and No Patient answered all questions The patient has been examined within 24 hours of the surgical procedure. The History & Physical has been completed within 30 days and I have reviewed it.: No Section B - Complete if H&P > 30 days Chief Complaint: Other intervertebral disc displacement, lumbar reg Allergies: Allergies Allergy/AdvReac Type Severity Reaction Status Date / Time doxycycline [DOXYCYCLINE] Allergy Severe PALPITATIONS, Verified 06/18/23 09:59 anaphylaxis ibuprofen [IBUPROFEN] Allergy Severe HIVES, GI Verified 06/18/23 09:59 upset NSAIDS (Non-Steroidal Allergy Severe HIVES, GI Verified 06/18/23 09:59 Anti-Inflamma upset [NSAIDS (NON-STEROIDAL ANTI-INFLAMMA] cefaclor [From CECLOR] Allergy Intermediate RASH Verified 06/18/23 09:59 codeine [CODEINE] AdvReac Severe N/V Verified 06/18/23 09:59 cephalexin [From KEFLEX] AdvReac Intermediate GI UPSET Verified 06/18/23 09:59 gabapentin [GABAPENTIN] AdvReac Intermediate makes me Verified 06/18/23 09:59 feel weird tolterodine [From DETROL] AdvReac Intermediate PALPITATION Verified 06/18/23 09:59 S Review of Systems Sugical H&P ROS: Negative: Constitution, Cardiovascular, Respiratory, Neurological, Psychiatric, Hem-Onc, Allergic/Immunologic, Gastrointestinal, Genitourinary, Musculoskeletal, Integumentary, Endocrine and Eyes/Ears/Nose/Throat Exam Surgical H&P Exam: Not Evaluated: HEENT, Not Evaluated: Heart, Not Evaluated: Lungs, Not Evaluated: Extremities, Not Evaluated: Abdomen, Not Evaluated: Skin and Not Evaluated: Neurological Plan L2-3 transkambin lumbar interbody fusionwith revision of the posterior instrumentation L2-L4, possible TLIF if needed, and removal of the disc herniation. Time Spent With Patient Time: Total time managing care of this patient today ___5_ minutes.
--- NOTE | 2023-07-12 07:26 | MHC.SHP ---
Pre-Procedural Eval Section A - 24 Hr Update-Section A only Date of Service: 07/12/23 The patient is an INPATIENT: No Changes since office visit: No Cold of Flu in the past 2 weeks, No New Medical Problems, No Changes in Medication and No Patient answered all questions The patient has been examined within 24 hours of the surgical procedure. The History & Physical has been completed within 30 days and I have reviewed it.: No Section B - Complete if H&P > 30 days Chief Complaint: Other intervertebral disc displacement, lumbar reg Allergies: Allergies Allergy/AdvReac Type Severity Reaction Status Date / Time doxycycline [DOXYCYCLINE] Allergy Severe PALPITATIONS, Verified 06/18/23 09:59 anaphylaxis ibuprofen [IBUPROFEN] Allergy Severe HIVES, GI Verified 06/18/23 09:59 upset NSAIDS (Non-Steroidal Allergy Severe HIVES, GI Verified 06/18/23 09:59 Anti-Inflamma upset [NSAIDS (NON-STEROIDAL ANTI-INFLAMMA] cefaclor [From CECLOR] Allergy Intermediate RASH Verified 06/18/23 09:59 codeine [CODEINE] AdvReac Severe N/V Verified 06/18/23 09:59 cephalexin [From KEFLEX] AdvReac Intermediate GI UPSET Verified 06/18/23 09:59 gabapentin [GABAPENTIN] AdvReac Intermediate makes me Verified 06/18/23 09:59 feel weird tolterodine [From DETROL] AdvReac Intermediate PALPITATION Verified 06/18/23 09:59 S Review of Systems Sugical H&P ROS: Negative: Constitution, Cardiovascular, Respiratory, Neurological, Psychiatric, Hem-Onc, Allergic/Immunologic, Gastrointestinal, Genitourinary, Musculoskeletal, Integumentary, Endocrine and Eyes/Ears/Nose/Throat Exam Surgical H&P Exam: Not Evaluated: HEENT, Not Evaluated: Heart, Not Evaluated: Lungs, Not Evaluated: Extremities, Not Evaluated: Abdomen, Not Evaluated: Skin and Not Evaluated: Neurological Plan Diagnosis/Plan: Unchanged Left L2-3 transkambin lumbar interbody fusion, revision L2-4 instrumentation and L2-3 diskectomy Time Spent With Patient Time: Total time managing care of this patient today __5__ minutes.
--- OUTSIDE RECORDS SUMMARY | 2023-07-12 08:31 | XMS_ITS | Continuity of Care Document ---
Author Name Unknown Organization [facility] ter Address [address] [place] [id number]- Care Team Providers Care Digital Analytics Manager Name Role Phone Cachorro Arellano MD Primary Care Physician [place] [facility] [place]16[place]22 - 01/15/[address] [address]- Attending Physician: Cachorro Arellano MD Admitting Physician: Cachorro Arellano MD Referring Physician: Cachorro Arellano MD Allergies, Adverse Reactions, Alerts Substance Reaction Severity Status codeine MAKES ME ITCH Active ibuprofen sevre nausea Active doxycycline Active gabapentin 1 Persistent Moderate Active Detrol Active Keflex Active Ceclor sevre nausea Active tiZANidine Active 1vomiting Medications acetaminophen-oxyCODONE 325 mg-5 mg oral tablet 1, tablet, By Mouth, 4 times a day, Refills 0, Tot. Refills 0, Maintenance, 06/02/22 14:50:00 EST, Partial fill upon patient request if the prescription is for a schedule II opioid drug. Start Date: 06/02/22 Status: Ordered Amlodipine 5 mg, By Mouth, Daily, Maintenance, 03/15/13 8:20:51 EDT Start Date: 03/15/13 Status: Ordered atorvastatin 10 mg oral tablet 1 tablet = 10 mg, By Mouth, Daily, 0 Refills, Maintenance, 06/02/22 14:50:00 EST, Partial fill uponpatient request if the prescription is for a schedule II opioid drug. Start Date: 06/02/22 Status: Ordered clonazePAM 2 mg oral tablet 1 tablet = 2 mg, By Mouth, 2 times a day, 0 Refills, Maintenance, 08/22/18 8:21:59 EDT Start Date: 08/22/18 Status: Ordered lisinopril 40 mg oral tablet 1 tablet, By Mouth, Daily, # 30 tablet, 0 Refills, Maintenance, 01/26/11 11:40:57, Tablet Start Date: 01/26/11 Status: Ordered metFORMIN 500 mg oral tablet 1 tablet = 500 mg, By Mouth, 2 times a day, 100mg, 0 Refills, Maintenance, 08/22/18 8:18:55 EDT Start Date: 08/22/18 Status: Ordered OxyCONTIN 10 mg oral tablet, extended release 10 mg, 1, tablet, By Mouth, Every 12 hours, Refills 0, Tot. Refills 0, Maintenance, 06/02/22 14:50:00 EST, Partial fill upon patient request if the prescription is for a schedule II opioid drug. Start Date: 06/02/22 Status: Ordered pregabalin 300 mg oral capsule 1 capsule = 300 mg, By Mouth, 2 times a day, 0 Refills, Maintenance, 06/02/22 14:50:00 EST, Partialfill upon patient request if the prescription is for a schedule II opioid drug. Start Date: 06/02/22 Status: Ordered Protonix 40 mg oral enteric coated tablet 1 tablet, By Mouth, Daily, # 30 tablet, 0 Refills, Maintenance, EC Tablet Start Date: 01/26/11 Status: Ordered Sitz Bath See Instructions, # 1 each, Maintenance, use as directed, 05/11/17 14:15:58, Compound Start Date: 05/11/17 Status: Ordered Problem List Condition Confirmation Course Effective Dates Status Health Status Informant Abnormal cervical Papanicolaou smear Confirmed Active Anxiety Confirmed Active Cancer of cervix, Stage IB2 Rt withchemosensitization Confirmed Active Depression Confirmed Active Obese class II Confirmed Active Varicose vein Confirmed Active Social History Social History Type Response 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 [place] [address]- Care Team Related Persons Name: COLLIN VALLEJO Address: [address] [place] [address] Name: PT STATES, NONE Name: PEDRO LUIS JOE Address: [address] [place] [address]
--- OUTSIDE RECORDS SUMMARY | 2023-07-12 08:31 | XMS_ITS | Continuity of Care Document ---
Author Name Unknown Organization [facility] ter Address [address] [place] [address]- Care Team Providers Care Supervising Film Or Videotape Editor Name Role Phone Cachorro Arellano MD Primary Care Physician [phone] [place] [facility] [place] [place] - 03/24/[address] [address]- Attending Physician: Suraj Fuentes MD Admitting Physician: Suraj Fuentes MD Referring Physician: Suraj Fuentes MD Allergies, Adverse Reactions, Alerts Substance Reaction [...] Primary Care Member Role: PCP Address: Address: [address] [place] [address], [address] [facility] [place] [address]- Care Team Related Persons Name: COLLIN VALLEJO Address: [address] [place] [address] Name: PT STATES, NONE Name: PEDRO LUIS JOE Address: [address] [place] [address] Name: GUY JONES
[2023-07-12] MEDS: methocarbamoL 750 MG TABLET PO (08:53)
[2023-07-12 09:00] LABS: Glucose, Whole Blood 109 mg/dL (60-115)
--- NOTE | 2023-07-12 09:03 | PHA.MEDREC ---
Pharmacy Consult ? Medication Reconciliation Pharmacy has completed the medication reconciliation. Reviewed med rec done by nursing
[2023-07-12 09:24] LABS: Anion Gap 11 (12-20); Carbon Dioxide 25 mmol/L (22-29); Chloride 110 mmol/L (96-108); Potassium 3.3 mmol/L (3.3-5.1); Sodium 143 mmol/L (135-145)
--- NOTE | 2023-07-12 09:35 | P.CONAN_ITS ---
Documented by User: Toshia Samaniego NP 07/09/23 10:09 HPI - Anesthesia Eval Consult details Narrative: 58yo F for Left L2-3 Transforaminal Lumbar Interbody Fuse with REVISION posterior instrumentation, 07/12/23 No recent illness No CP/SOB. Very limited activity d/t pain. GERD. Well controlled on ppi Smoker. ~ 1/2ppd DM. Ozempic. Does not check POC. Anesthesia Pre-Procedure Meds Is the patient on any of the following meds?: Semaglutide (Ozempic) If Yes to any meds - educate patient: Pt education - increased risk of aspiration and Pt education - possibility of cancelled proc at provider's di scretion [facility] Active Problems Active Problems: All Active Problems (Updated 06/18/23 @ 10:15 by Marlin Canada, MIRZA) Adjacent segment disease of lumbar spine with history of fusion procedure (Acute) Lumbar disc herniation (Acute) Morbid obesity (Acute) Colitis (Acute) Trigger thumb of right hand (Acute) Chronic pain syndrome (Acute) Chronic, continuous use of opioids (Acute) Carpal tunnel syndrome of right wrist (Acute) Numbness of right hand (Acute) Cubital tunnel syndrome on right (Acute) Carpal tunnel syndrome of left wrist (Acute) Cubital tunnel syndrome on left (Acute) Numbness and tingling in left hand (Acute) Left hand pain (Acute) Colitis (Acute) Encounter for Medicare annual wellness exam (Acute) Bilateral primary osteoarthritis of knee (Acute) Intertrigo (Acute) Status post trigger finger release (Acute) Weight loss (Acute) Carpal tunnel syndrome of left wrist (Acute) Left wrist pain (Acute) Bilateral knee pain (Acute) Failed back syndrome, lumbar (Acute) Knee pain, bilateral (Acute) GERD without esophagitis (Acute) Pure hypercholesterolemia (Acute) Degenerative joint disease of left knee (Acute) Morbid obesity with BMI of 40.0-44.9, adult (Acute) Smoker (Acute) Depression (Acute) Anxiety (Acute) Benign essential hypertension (Acute) Diabetes mellitus (Acute) Lumbar degenerative disc disease (Acute) Past Medical History Medical History (Updated 06/18/23 @ 10:15 by Marlin Canada RN) Elevated cholesterol GI bleed Weight loss Carpal tunnel syndrome of left wrist Left wrist pain Bilateral knee pain Failed back syndrome, lumbar Knee pain, bilateral GERD without esophagitis History of renal stone Fatty liver DDD (degenerative disc disease), lumbosacral Hx of concussion Pure hypercholesterolemia Degenerative joint disease of left knee Morbid obesity with BMI of 40.0-44.9, adult Smoker Depression Anxiety Benign essential hypertension Diabetes mellitus Cervical cancer Tibia fracture Lumbar degenerative disc disease Family History Family History Father Alzheimer disease Mouth cancer Mother Cancer Medical history unknown Sister No problems noted. Brother No problems noted. Maternal Grandfather HTN (hypertension) Maternal Grandmother HTN (hypertension) Other Mental health problem Family history of problems with anesthesia: No Surgical History Surgical History Hx of thumb surgery Hx of elbow surgery History of repair of left rotator cuff Status post trigger finger release History of carpal tunnel release Hx of lithotripsy Hx of colonoscopy History of lumbar surgery History of carpal tunnel release History of surgery (~1999) Previous back surgery History of Problems with Anesthesia: No Social History Social History Household Members: Children Household Members Other:: daughter Housing: Apartment Are you a primary day care center director to a significant other at home: Yes (daughter-will have help post-op) Do you presently have visiting nurse or other home services: No Alcohol intake: never Comment: + Patient Tobacco Use Status: Current everyday Tobacco user Tobacco use type: Cigarette Cigarettes Per Day: 20 Years Smoked: 22 Patient Interested in Nicotine Replacement: No Second Hand Smoke Exposure: No Use of substances other than those prescribed or required for medical reasons: No Have you been hit, kicked, punched, or otherwise hurt by someone within the past year? 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 Meds Allergies Allergy/AdvReac Type Severity Reaction Status Date / Time doxycycline [DOXYCYCLINE] Allergy Severe PALPITATIONS, Verified 07/12/23 08:47 anaphylaxis ibuprofen [IBUPROFEN] Allergy Severe HIVES, GI Verified 07/12/23 08:47 upset NSAIDS (Non-Steroidal Allergy Severe HIVES, GI Verified 07/12/23 08:47 Anti-Inflamma upset [NSAIDS (NON-STEROIDAL ANTI-INFLAMMA] cefaclor [From CECLOR] Allergy Intermediate RASH Verified 07/12/23 08:47 codeine [CODEINE] AdvReac Severe N/V Verified 07/12/23 08:47 cephalexin [From KEFLEX] AdvReac Intermediate GI UPSET Verified 07/12/23 08:47 gabapentin [GABAPENTIN] AdvReac Intermediate makes me Verified 07/12/23 08:47 feel weird tolterodine [From DETROL] AdvReac Intermediate PALPITATION Verified 07/12/23 08:47 S Home Medications Medication Instructions Recorded Confirmed Last Taken Type atorvastatin 10 mg tablet 10 mg PO BEDTIME 07/23/22 07/12/23 07/11/23 History clonazepam 2 mg tablet (Klonopin) 2 mg PO TID PRN anxiety 07/23/22 07/12/23 07/12/23 History semaglutide 0.25 mg or 0.5 mg (2 0.5 mg subcut .QWEDNESDAY 06/18/23 07/12/23 06/30/23 History mg/3 mL) subcutaneous pen injector (Ozempic) pantoprazole 40 mg tablet,delayed 40 mg PO DAILY@0630 07/12/23 07/12/23 07/12/23 History release Exam Height,Weight and Vital Signs: Height 5 ft 5 in Weight 97.5 kg Last Vital Signs Pulse 71 06/18/23 10:03 Resp 16 06/18/23 10:03 BP 143/70 H 06/18/23 10:03 Pulse Ox 96 06/18/23 10:03 O2 Del Method Room Air 06/18/23 10:03 Pertinent Lab Results Pertinent Lab Results: CBC 06/2023 from outside facility WNL BMP 06/2023 from outside facility WNL except K @ 3.0 Narrative Narrative: EKG 06/2023 Vent. Rate : 059 BPM Atrial Rate : 059 BPM P-R Int : 204 ms QRS Dur : 106 ms QT Int : 452 ms P-R-T Axes : 054 -29 015 degrees QTc Int : 447 ms Sinus bradycardia with Premature atrial complexes Nonspecific T wave abnormality Abnormal ECG When compared with ECG of 03-MAR-2012 08:54, Premature atrial complexes are now Present Nonspecific T wave abnormality, worse in Anterolateral leads Airway Mallampati Class: I TM Dist: >3cm Partial: Upper Heart: RRR Lungs: CTAB Assessment and Plan Assessment Anesthesia Assessment: Anesthesia Plan Discussed, Smoking Cess. Discussed and PAT Visit Final Anesthetic Review Family History of Problems with Anesthesia: No History of Problems with Anesthesia: No Documented by User: Elidia Charles DO 07/12/23 09:43 HPI - Anesthesia Eval Consult details Narrative: 58yo F for Left L2-3 Transforaminal Lumbar Interbody Fuse with REVISION posterior instrumentation, 07/12/23 No recent illness No CP/SOB. Very limited activity d/t pain. GERD. Well controlled on ppi Smoker. ~ 1/2ppd. Smoked today. DM. Ozempic - last dose 06/30. Does not check POC. Anesthesia Pre-Procedure Meds Is the patient on any of the following meds?: Semaglutide (Ozempic) If Yes to any meds - educate patient: Pt education - increased risk of aspiration PMFSH Past Medical History Medical History (Updated 06/18/23 @ 10:15 by Marlin Canada RN) Elevated cholesterol GI bleed Weight loss Carpal tunnel syndrome of left wrist Left wrist pain Bilateral knee pain Failed back syndrome, lumbar Knee pain, bilateral GERD without esophagitis History of renal stone Fatty liver DDD (degenerative disc disease), lumbosacral Hx of concussion Pure hypercholesterolemia Degenerative joint disease of left knee Morbid obesity with BMI of 40.0-44.9, adult Smoker Depression Anxiety Benign essential hypertension Diabetes mellitus Cervical cancer Tibia fracture Lumbar degenerative disc disease Family History Family History Father Alzheimer disease Mouth cancer Mother Cancer Medical history unknown Sister No problems noted. Brother No problems noted. Maternal Grandfather HTN (hypertension) Maternal Grandmother HTN (hypertension) Other Mental health problem Family history of problems with anesthesia: No Surgical History Surgical History Hx of thumb surgery Hx of elbow surgery History of repair of left rotator cuff Status post trigger finger release History of carpal tunnel release Hx of lithotripsy Hx of colonoscopy History of lumbar surgery History of carpal tunnel release History of surgery (~1999) Previous back surgery History of Problems with Anesthesia: No Social History Social History Household Members: Children Household Members Other:: daughter Housing: Apartment Are you a primary day care center director to a significant other at home: Yes (daughter-will have help post-op) Do you presently have visiting nurse or other home services: No Alcohol intake: never Comment: + Patient Tobacco Use Status: Current everyday Tobacco user Tobacco use type: Cigarette Cigarettes Per Day: 20 Years Smoked: 22 Patient Interested in Nicotine Replacement: No Second Hand Smoke Exposure: No Use of substances other than those prescribed or required for medical reasons: No Have you been hit, kicked, punched, or otherwise hurt by someone within the past year? 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 Meds Allergies Allergy/AdvReac Type Severity Reaction Status Date / Time doxycycline [DOXYCYCLINE] Allergy Severe PALPITATIONS, Verified 07/12/23 08:47 anaphylaxis ibuprofen [IBUPROFEN] Allergy Severe HIVES, GI Verified 07/12/23 08:47 upset NSAIDS (Non-Steroidal Allergy Severe HIVES, GI Verified 07/12/23 08:47 Anti-Inflamma upset [NSAIDS (NON-STEROIDAL ANTI-INFLAMMA] cefaclor [From CECLOR] Allergy Intermediate RASH Verified 07/12/23 08:47 codeine [CODEINE] AdvReac Severe N/V Verified 07/12/23 08:47 cephalexin [From KEFLEX] AdvReac Intermediate GI UPSET Verified 07/12/23 08:47 gabapentin [GABAPENTIN] AdvReac Intermediate makes me Verified 07/12/23 08:47 feel weird tolterodine [From DETROL] AdvReac Intermediate PALPITATION Verified 07/12/23 08:47 S Home Medications Medication Instructions Recorded Confirmed Last Taken Type atorvastatin 10 mg tablet 10 mg PO BEDTIME 07/23/22 07/12/23 07/11/23 History clonazepam 2 mg tablet (Klonopin) 2 mg PO TID PRN anxiety 07/23/22 07/12/23 07/12/23 History semaglutide 0.25 mg or 0.5 mg (2 0.5 mg subcut .QWEDNESDAY 06/18/23 07/12/23 06/30/23 History mg/3 mL) subcutaneous pen injector (Ozempic) pantoprazole 40 mg tablet,delayed 40 mg PO DAILY@0630 07/12/23 07/12/23 07/12/23 History release Exam Exam Date and Time: July 12, 2023 0935 Height,Weight and Vital Signs: Height 5 ft 5 in Weight 97.5 kg Last Vital Signs Pulse 71 06/18/23 10:03 Resp 16 06/18/23 10:03 BP 143/70 H 06/18/23 10:03 Pulse Ox 96 06/18/23 10:03 O2 Del Method Room Air 06/18/23 10:03 Height 5 ft 5 in Weight 95.527 kg Vital Signs Pulse Rate 71 06/18/23 10:03 Respiratory Rate 16 06/18/23 10:03 Blood Pressure 143/70 H 06/18/23 10:03 Pulse Oximetry 96 06/18/23 10:03 Oxygen Delivery Method Room Air 06/18/23 10:03 Temperature 98.1 F 07/12/23 09:24 Pulse Rate 70 07/12/23 09:24 Respiratory Rate 16 07/12/23 09:24 Blood Pressure 142/73 H 07/12/23 09:24 Pulse Oximetry 97 07/12/23 09:24 Oxygen Delivery Method Room Air 07/12/23 09:24 Airway Mallampati Class: I TM Dist: >3cm Partial: Upper (left at home) Loose/Missing/Broken Teeth: Yes Heart: S1S2 Assessment and Plan Assessment Anesthesia Assessment: Anesthesia Plan Discussed and Chart Reviewed Final Anesthetic Review Family History of Problems with Anesthesia: No History of Problems with Anesthesia: No NPO: Yes ASA Class: III Final Preanesthetic Review: No Changes in Pt Med Stat, Meds/Allgs Chart Reviewed, Consent Obtained/Reviewed and Anes Risks/Benef Reviewed Patient Risk: Intermediate Procedure Risk: Intermediate Anesthetic Plan Anesthetic Plan: GA and Agree w/ Assess. and Plan Disposition: Standard PACU
[2023-07-12] MEDS: vancomycin HCL 1,500 MG in 0.9 % Sodium Chloride 500 ML 333.33 MG IV ×2 (09:41→19:23)
[2023-07-12] MEDS: Lactated Ringers 1,000 ML 100 ML IVCONT ×2 (09:41→15:31)
--- NOTE | 2023-07-12 12:42 | W.PM.OPN ---
Operative Note Operative Note Date of Service: 07/12/23 Narrative: Preoperative diagnosis: 1) left lumbar radiculopathy due to degenerative disc disease Postprocedure diagnosis: 1) same as above Procedure: 1) L2-3 oblique lateral lumbar interbody fusion with discectomy, preparation of the endplates and placement of a titanium bullet cage packed with allograft, anterior to the transverse process in modified prone position, with intraoperative biplanar fluoroscopy imaging and electrophysiological monitoring 2) Removal L3-4 posterior instrumentation followed by insertion of L2-3 posterior minimally invasive pedicle screw placement and posterior lateral instrumentation and fusion with intraoperative biplanar fluoroscopic imaging and electrophysiological monitoring 3 L2-3 left hemilaminotomy and partial facetectomy to decompress the nerve root Consent Informed Consent was obtained for this operation. I have explained the nature, purpose and benefits of the operation. I have discussed the risks and benefit of the operation including possible complications or adverse events with patient/family. Alternative(s) were discussed with the patient with their relative benefits and risks as well as the consequences of not accepting the operation were included in obtaining consent. Surgeon: GOLDEN THEODORE MD, PHD Procedure Assisted By: Senthil olson Description of Procedure: This is a complex surgery on the lumbar spine and an curriculum assistant principal as needed for safety of the surgery for setup of instrumentation, retraction and closing. History: This 58-year-old female had a previous L3-S1 lumbar fusion. She presented with adjacent degenerative disc disease L2-3 and a left lumbar radiculopathy. The patient was offered an oblique lumbar lateral interbody fusion, revision of posterior instrumentation with removal of L3-4 instrumentation and insertion of L2-3 instrumentation followed by posterior L2-3 left hemilaminotomy. The procedure and complications were explained and the patient was consented. Procedure: The patient was brought to the operating room and endotracheally intubated. The patient was positioned on the Alan spine table in a modified prone position for ease of access from the left side.. 2C arms were installed for fluoroscopy. Prepping and draping was done followed by timeout. The landmarks, including spinal processes, transverse processes, disc space, endplates and pedicles are identified and marked. The following steps are taken for each specified level: L2-3 level: Cage size 10 mm high and 30 mm long titanium . The patient was turned using the rotation of the surgical table so a near direct anterior lateral approach to the lumbar spine could be achieved. A small incision was then made superior to the mid iliac crest and then using biplanar fluoroscopy visualization, under electrophysiological monitoring and stimulation, we introduced an electrophysiological probe through the retroperitoneal space into the desired disc anterior to the transverse process and then passed it into the disc space after finding a silent window. The sleeve was retained and the probe was removed, then the K wire was passed sequentially into the disc space. A dilating tube was then passed along the same route. Following this, a working channel, a working channel was then passed sequentially into the disc space. The working channel was manually held in position while a series of disc cleaning tools were passed through the channel to remove the affected disc under clear and direct biplanar fluoroscopic visualization, decompress the nerve roots and equal corticated vertebral endplates at this segment. Arthrodesis of the intervertebral space via an anterior retroperitoneal exposure was achieved through Kambin's [place] and lateral extraforaminal space. Allograft was added into the anterior disc space. The working channel was then removed. A titanium interbody cage tightly packed with allograft was then inserted into the midportion of the intervertebral disc space over a K-wire under biplanar fluoroscopic visualization and intraoperative neuro monitoring. The inter pedicular and intradiscal space was significantly enlarged and disc height was restored to worked normal anatomy there for releasing pressure on the nerve roots visual largely the spinal canal and lateral recess as well as foramen were bilateral decompressed and all bones were confined to the borders of the disc space . Then attention was turned to the posterior instrumentation. The posterolateral fusion is initiated after the patient is rotated to a true prone position. The entry point for the L2 pedicles were identified in the AP and lateral views. We entered the pedicle with the pediguard tap after which a K-wire was introduced into the vertebral body. Then attention was turned to the previous instrumentation. The previous paramedian incisions were opened and the instrumentation was exposed. The locking caps were removed followed by removal of the bilateral rods. Finally the bilateral L4 pedicle screws were removed and the L3 pedicle screws were replaced by a 7.5 x 45 mm screw over the K-wire. The K-wires for the L2 screw were bent out of the way in order for me to perform a decompression. The paravertebral muscles were released the left side to expose the L2-3 lamina and L2-3 facet joint. An left L2-3 hemilaminotomy was done as well as a partial L2-3 facetectomy. The L3 nerve root was identified and retracted medially to make sure that there was no underlying disc herniation which was not present. We made sure the L2 and L3 nerve roots were adequately decompressed in the foramen and in the lateral recess. Then returned to finish the posterior instrumentation. A 6.5 x 45 mm screw was inserted over the K-wire in the bilateral L2 pedicles. The posterolateral gutter was decorticated and 2 rods were inserted and locked down with locking caps. The extension towers were removed. The posterolateral fusion was completed by by laying allograft in the posterolateral gutter. Final x-rays in AP and lateral projection showed good position of the interbody device and posterior instrumentation at L2-L3. Hemostasis was done. The multiple paramedian incisions were closed with 0 Vicryl for the fascia and a 3-0 Vicryl for the subdermal layer. Steri-Strips were used to approximate the incisions. An OpSite with Tegaderm was used to cover the incision. All sponge and needle counts were correct. The patient was extubated and transported in a stable condition to the recovery room. 2-0 Vicryl This procedure was done with the aid of a physician curriculum assistant principal as a qualified resident was not available. Anesthesia: General Estimated Blood Loss (ml): 40 mL Duration of Surgery: 2.30 hours Postoperative Plan: Admit to inpatient
[2023-07-12] MEDS: HYDROmorphone HCl 0.5 MG/0.5 ML SYRINGE IVPUSH ×2 (13:49→14:25)
[2023-07-12] MEDS: fentaNYL citrate/PF 100 MCG/2 ML VIAL 50 MCG IVPUSH ×2 (13:58→14:06)
[2023-07-12 14:45] LABS: Glucose, Whole Blood 152 mg/dL (60-115)
[2023-07-12] MEDS: 0.9 % Sodium Chloride 1,000 ML 75 ML IVCONT (15:40)
[2023-07-12] MEDS: clonazePAM 1 MG TABLET 2 MG PO ×2 (16:04→20:53)
[2023-07-12] MEDS: Ketorolac Tromethamine 15 MG/ML VIAL IVPUSH ×2 (16:04→19:13)
[2023-07-12] MEDS: Acetaminophen 1,000 MG/100 ML PIGGYBACK 400 MG IV ×2 (17:10→22:55)
[2023-07-12] MEDS: HYDROmorphone HCl 1 MG/ML SYRINGE IVPUSH ×2 (17:13→20:53)
[2023-07-12] MEDS: Pregabalin 150 MG CAPSULE 300 MG PO (19:17)
[2023-07-12] MEDS: Atorvastatin Calcium 10 MG TABLET PO (19:18)
[2023-07-12] MEDS: Docusate Sodium 100 MG CAPSULE PO (19:18)
[2023-07-13] MEDS: Ketorolac Tromethamine 15 MG/ML VIAL IVPUSH ×2 (02:23→07:32)
[2023-07-13 02:25] VITALS: BP 114/61; PULSE 67; RESP 16; TEMP 37.1; O2SAT 97
[2023-07-13] MEDS: Acetaminophen 1,000 MG/100 ML PIGGYBACK 400 MG IV (05:37)
[2023-07-13] MEDS: Omeprazole 20 MG CAPSULE.DR PO (05:38)
[2023-07-13] MEDS: HYDROmorphone HCl 1 MG/ML SYRINGE IVPUSH (05:38)
[2023-07-13 05:50] VITALS: BMI 36.1
[2023-07-13 07:27] VITALS: BP 123/61; PULSE 75; RESP 20; TEMP 36; O2SAT 98
[2023-07-13] MEDS: Pregabalin 150 MG CAPSULE 300 MG PO (07:31)
[2023-07-13] MEDS: Docusate Sodium 100 MG CAPSULE PO (07:32)
[2023-07-13] MEDS: amLODIPine Besylate 5 MG TABLET PO (07:32)
[2023-07-13] MEDS: HYDROmorphone HCl 2 MG TABLET PO (08:47)
[2023-07-13 09:00] VITALS: BP 123/61; PULSE 75; O2SAT 98
--- NOTE | 2023-07-13 09:47 | MHC.CM.PN ---
Addendum entered by Ayana Baumann RN 07/13/23 10:27: Patient is medically cleared for dc home self care. Original Note: [facility]MM delivered. Patient is from home w/ disabled daughter. Functionally independent. No services or current DME. PT rec home self care, with new walker. PCP: Andreea Bob NP HCP: Patient signed HCP naming agent as sister Brooke Rodríguez [phone] DP: Home self care, new walker, sister to transport. CM will continue to follow.
--- NOTE | 2023-07-13 10:04 | HO.NEURO.PN ---
Neurosurgery Operative Note Date of Service: 07/13/23 Narrative: Postoperative day 1. L2-3 trans Kambin lumbar interbody fusion, revision of posterior instrumentation, L2-3 microdiskectomy Patient reports having difficulty with pain in her back overnight but her preoperative leg pain is gone. She is voiding okay, drinking fluids. She has not yet had breakfast or solid food but denies any significant nausea. She has been up walking to the bathroom. She has not seen physical therapy yet. Physical exam Afebrile, vital signs stable she is awake alert oriented no acute distress, bilateral full strength of bilateral lower extremities, sensation normal, back dressings have small amount of staining but no signs of hematoma. Impression: Postop day 1. L2-3 trans Kambin lumbar interbody fusion revision posterior instrumentation, L2-3 microdiskectomy. Patient clinically has had significant improvement in her preoperative leg pain. She is dealing with back pain as we expect, but seems to be manageable with the Dilaudid. She is also on Lyrica, Toradol and IV Tylenol. The plan will be to get her up with physical therapy, ambulate, advance her diet and we suspect home later today. Patient seen at bedside with Dr. Coleman.
--- NOTE | 2023-07-13 10:06 | P.DS_ITS ---
DS: Providers Provider Date of Service: 07/12/23 Date of admission: 07/12/23 08:23 Date of discharge: 07/13/23 Primary care physician: Andreea Bob NP Admitting clinician: Ty Coleman DS: Diagnosis Discharge Diagnosis (1) Adjacent segment disease of lumbar spine with history of fusion procedure: Status: Acute (2) Lumbar disc herniation: Status: Acute DS: Summary Time Attestation Discharge coordination time: Less than 30 minutes Quality: Safe Use of Opioids Does Pt have an Active Cancer Diagnosis on the Problem List?: No Quality: Stroke Does the patient have a stroke diagnosis?: No Physical Exam Vital Signs: Vital Signs: Last Vital Signs Temp 96.8 F 07/13/23 07:27 Pulse 75 07/13/23 09:00 Resp 20 07/13/23 07:27 BP 123/61 07/13/23 09:00 Pulse Ox 98 07/13/23 09:00 O2 Del Method Room Air 07/13/23 07:27 O2 Flow Rate 2 07/12/23 15:26 BMI result Body Mass Index 36.1 DS: Data Data Completed and Pending Labs on day of discharge: Laboratory Results - last 24 hr 07/12/23 07/12/23 09:05 14:41 POC Glucose 152 H Blood Type A Positive Antibody Screen NEGATIVE Discharge Plan Discharge Anticipated Discharge Date/Time: 07/13/23 14:07 Patient Disposition: Home, Self-Care Discharge Diagnosis: lumbar disk herniation Referrals: Andreea Bob NP [Primary Care Provider] - 1 Week Discharge Medications: New hydromorphone [Dilaudid] 2 mg tablet See Rx Instructions .ROUTE .COMPLEX Qty: 40 0RF Rx Instructions: 1-2 tabs po q4 hours prn pain; Partial Fill upon patient request. (DME) walker Misc See Rx Instructions .Route Qty: 1 0RF Rx Instructions: front wheeled walker Continued pregabalin 300 mg capsule 300 mg PO BID 30 Days Qty: 60 0RF lisinopril 40 mg tablet 40 mg PO DAILY 90 Days Qty: 90 1RF amlodipine 5 mg tablet 5 mg PO DAILY Qty: 30 3RF clonazepam [Klonopin] 2 mg tablet 2 mg PO TID PRN (Reason: anxiety) atorvastatin 10 mg tablet 10 mg PO BEDTIME Ozempic 0.25 mg or 0.5 mg (2 mg/3 mL) pen injector 0.5 mg subcut .QWEDN pantoprazole 40 mg tablet,delayed release (DR/EC) 40 mg PO DAILY@0630 [place] Shower Chair Mis See Rx Instructions .Route Qty: 1 0RF Rx Instructions: As directed Discharge Orders: Discharge Order (Routine); Ordered 07/13/23 Ordered By: Senthil Walters Diet: Advance to usual diet Activity on Discharge: As tolerated Stand Alone Forms: Patient Portal Discharge page Activity Restrictions/Additional Instructions: After your spinal surgery we ask you to observe the following restrictions/guidelines: Activity: It is normal to feel some discomfort as you increase your activity, but that will improve with time. We ask you avoid heavy lifting or acitivities that cause pain. As a general rule, 8lbs is a safe limit for lifting right after surgery. Walk as much as you feel comfortable but not to exhaustion. You will feel extra tired the first few days after surgery. Stay well hydrated. It is OK to walk up and down stairs You may return to driving when you are off narcotics (such as vicodin, oxycodone, dilaudid, etc), and you are back to normal functional capacity. If you have any concerns please check with office before driving. Return to work is specific to each patient and each surgery, so please speak with your doctor/PA at first follow up. Please bring paperwork such as FMLA at that time if you need it filled out. Medications: For optimum pain control, it is best to start with a combination of 500 mg of Tylenol every 4 hours with 600 mg of Motrin every 8 hours, and use narcotics as needed in between for breakthrough pain. We will give you a short supply of narcotics after surgery (usually one weeks worth). If you need more please call the office but do not use more than prescribed. You will need to give our office 48 hours notice if you need narcotics refilled and we do not fill narcotics on weekends or evenings. If you are on a narcotic, it is a good idea to take a stool softener such as colace or senna to avoid constipation If you take blood thinner such as aspirin, Plavix, Coumadin, Effient, Eliquis etc for conditions such as Afib, DVT, Pulmonary embolus, coronary disease, stents etc please speak with your surgeon about specific details as to when you can resume these medications. You can resume NSAIDs on post op day 1 (eg: Motrin, Naproxen, etc). Follow up: Please call the office, , after surgery to arrange a 3 week follow up for wound check. Wound Care: You may remove your dressing on the first day after surgery. ?You may ?leave open to air. Please do not remove the steri strips underneath. they will fall off on their own in one week. IT IS NORMAL FOR THE WOUND TO OOZE OR BE BLOODY FOR A FEW DAYS AFTER SURGERY. ?IF THIS HAPPENS JUST PLACE NEW DRESSING OVER IT TO AVOID STAINING CLOTHES. You may shower on post op day # 1 We ask that you do not let the water soak the wound. If it does get wet, just towel dry lightly. Please do not scrub your incision or place any type of chemical/ointment on the wound. No tub baths, pools or jacuzzis for one month. If you have any leaking or redness from your wound, or fevers, please call office Care Plan Goals: Discharge home Health Concerns: None Plan of Treatment: Discharge home Assessment: Stable
--- NOTE | 2023-07-13 14:31 | HO.POSTANES ---
Post Anesthesia Evaluation Post Anesthesia Evaluation Date of Service: 07/13/23 Vital Signs: Vital Signs Temp Pulse Resp BP Pulse Ox O2 Del Method 07/13/23 09:00 75 123/61 98 07/13/23 07:27 96.8 F 75 20 123/61 98 Room Air Anesthesia: General Endotracheal-GETA Mental Status: Awake Pain Control: Satisfactory Nausea/Vomiting: None Hydration: Adequate Anesthesia-Related Issues: No Anes. Related Issues
== END 2023-07-13 11:04 | disposition home or self-care (01) | DRG 460 ==
LOC: HO.SSSA 08:29 → HO.S3 13:53
PROVIDERS: Neurological Surgery; Nurse Practitioner; Admitting Provider Physician Assistant; PCP Nurse Practitioner Family; Visit Provider Physician Assistant
PROC: 0SG00A0 Fusion of Lumbar Vertebral Joint with Interbody Fusion Device, Anterior Approach, Anterior Column, Open Approach (ICD-10-PCS; principal; 2023-07-12 10:50)
DX: M51.16 Intervertebral disc disorders with radiculopathy, lumbar region (principal); E11.9 Type 2 diabetes mellitus without complications; Z79.85 Long-term (current) use of injectable non-insulin antidiabetic drugs; Z79.899 Other long term (current) drug therapy
CPT/HCPCS: 36415; 80051; 82947; 86850; 86900; 86901; 93005; 97162; C1713; J0131; J0330; J1100; J1170; J1885; J2250; J2405; J2704; J3010; J3371; J7120; L8699

== ENCOUNTER → 2023-07-12 08:23 | Outpatient (BNV) | payer MEDICARE, MEDICAID, SELFPAY | PROVIDERS: Admitting Provider Physician Assistant; PCP Nurse Practitioner Family; Visit Provider Neurological Surgery | DX: M51.36 Other intervertebral disc degeneration, lumbar region (principal); M51.26 Other intervertebral disc displacement, lumbar region | CPT/HCPCS: 20930; 22558; 22612; 22849; 22853; 63047; 63056; 99024; 99499 ==

== ENCOUNTER 2023-07-28 10:40 | Outpatient (AMB) | payer MEDICARE, MEDICAID, SELFPAY ==
--- NOTE | 2023-07-28 11:12 | A.SPINEOV_ITS ---
Intake Intake Visit Reasons: follow up Allergies doxycycline [DOXYCYCLINE] Allergy (Severe, Verified 07/12/23 08:47) PALPITATIONS, anaphylaxis ibuprofen [IBUPROFEN] Allergy (Severe, Verified 07/12/23 08:47) HIVES, GI upset NSAIDS (Non-Steroidal Anti-Inflamma [NSAIDS (NON-STEROIDAL ANTI-INFLAMMA] A llergy (Severe, Verified 07/12/23 08:47) HIVES, GI upset cefaclor [From CECLOR] Allergy (Intermediate, Verified 07/12/23 08:47) RASH codeine [CODEINE] Adverse Reaction (Severe, Verified 07/12/23 08:47) N/V cephalexin [From KEFLEX] Adverse Reaction (Intermediate, Verified 07/12/23 08:47) GI UPSET gabapentin [GABAPENTIN] Adverse Reaction (Intermediate, Verified 07/12/23 08:47) makes me feel weird tolterodine [From DETROL] Adverse Reaction (Intermediate, Verified 07/12/23 08:47) PALPITATIONS Assessment & Plan Assessment & Plan (1) Adjacent segment disease of lumbar spine with history of fusion procedure: Code(s): M51.36 - Other intervertebral disc degeneration, lumbar region; Z98.1 - Arthr odesis status Plan Dear colleague, On 07/28/2023, I saw for postoperative visit Britt Rodríguez. She underwent a minimally invasive extension of her previous fusion to L2-L3 for back pain and left lumbar radiculopathy. The radiculopathy is resolved. She is actually doing quite well but she is worried about a little swelling on the right paramedian incision. I explained to her that this is most likely subcutaneous sutures that will resolve over time. She is walking and moving around the office without any difficulties. In summary, Britt is recovering very well from her surgery. I would like to follow up in 6 weeks. Ty Coleman MD, PhD Spine Fellowship Trained Neurosurgeon Director, [facility] Coding Level of Care Code Global (16245) Diagnoses Adjacent segment disease of lumbar spine with history of fusion procedure M51.36; Z98.1
== END 2023-07-28 11:18 | disposition home or self-care (01) ==
PROVIDERS: PCP Nurse Practitioner Family; Visit Provider Neurological Surgery
DX: M51.36 Other intervertebral disc degeneration, lumbar region (principal); Z98.1 Arthrodesis status
CPT/HCPCS: 99024

== ENCOUNTER → 2023-07-28 10:40 | Outpatient (BNVA) | payer MEDICARE, MEDICAID, SELFPAY | PROVIDERS: PCP Nurse Practitioner Family; Visit Provider Neurological Surgery | DX: M51.36 Other intervertebral disc degeneration, lumbar region (principal); Z98.1 Arthrodesis status | CPT/HCPCS: 99212 ==

== ENCOUNTER 2023-09-08 11:20 | Outpatient (REF) | payer MEDICARE, MEDICAID, SELFPAY | END 2023-09-08 11:21 | disposition home or self-care (01) | LOC: HO.HOSX 11:20 | PROVIDERS: PCP Nurse Practitioner Family; Visit Provider Neurological Surgery | DX: M51.36 Other intervertebral disc degeneration, lumbar region (principal); Z98.1 Arthrodesis status | CPT/HCPCS: 99212 ==

== ENCOUNTER 2023-09-08 11:20 | Outpatient (AMB) | payer MEDICARE, MEDICAID, SELFPAY ==
--- NOTE | 2023-09-08 11:35 | HO.SPINEOV ---
Intake Intake Visit Reasons: 2nd post op Intake Note: Ms. 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 Required: No Allergies doxycycline [DOXYCYCLINE] Allergy (Severe, Verified 07/12/23 08:47) PALPITATIONS, anaphylaxis ibuprofen [IBUPROFEN] Allergy (Severe, Verified 07/12/23 08:47) HIVES, GI upset NSAIDS (Non-Steroidal Anti-Inflamma [NSAIDS (NON-STEROIDAL ANTI-INFLAMMA] Allergy (Severe, Verified 07/12/23 08:47) HIVES, GI upset cefaclor [From CECLOR] Allergy (Intermediate, Verified 07/12/23 08:47) RASH codeine [CODEINE] Adverse Reaction (Severe, Verified 07/12/23 08:47) N/V cephalexin [From KEFLEX] Adverse Reaction (Intermediate, Verified 07/12/23 08:47) GI UPSET gabapentin [GABAPENTIN] Adverse Reaction (Intermediate, Verified 07/12/23 08:47) makes me feel weird tolterodine [From DETROL] Adverse Reaction (Intermediate, Verified 07/12/23 08:47) PALPITATIONS Assessment & Plan Assessment & Plan (1) Adjacent segment disease of lumbar spine with history of fusion procedure: Code(s): M51.36 - Other intervertebral disc degeneration, lumbar region; Z98.1 - Arthrodesis status Plan Dear colleague, On 09/08/2023, I saw for final postoperative visit Britt Rodríguez who underwent a minimally invasive L2-3 fusion. She is doing remarkably well. Incisions are healed. I discharged her from further follow-up. Thank you for letting me take care of your patient. Ty Coleman MD, PhD Spine Fellowship Trained Neurosurgeon Director, [facility] Coding Level of Care Code Global (87757) Diagnoses Adjacent segment disease of lumbar spine with history of fusion procedure M51.36; Z98.1
== END 2023-09-08 11:40 | disposition home or self-care (01) ==
PROVIDERS: PCP Nurse Practitioner Family; Visit Provider Neurological Surgery
DX: M51.36 Other intervertebral disc degeneration, lumbar region (principal); Z98.1 Arthrodesis status
CPT/HCPCS: 99024